=== PATIENT | female | born 1945 | race Hispanic/Latino ===

== ENCOUNTER 2020-09-26 23:46 | Emergency (ER) | payer MEDICARE ==
--- NOTE | 2020-09-27 | Emergency Department Report ---
ED Altered Mental Status HPI - General Chief Complaint: Altered Mental Status Stated Complaint: LOW POTASSIUM PUI?: No Time Seen by Provider: 09/26/20 23:55 Source: RN/MD, EMS, RN notes reviewed, old records reviewed Mode of arrival: Stretcher Limitations: Altered Mental Status, Physical Limitation - History of Present Illness Initial Comments: Patient is a 75-year-old female presents emergency room with complaints of altered mental status, weakness and low potassium. Patient is coming from a local long-term. Patient was sent here to be evaluated for mental status changes and low potassium. Patient's potassium was checked a few days ago and was found to be low and patient wanted to be managed in the ER for low pota ssium. EMS states that the daughter reports that her mental status has been changing. Patient brought in by EMS. Report received from EMS. No other complaints per EMS. Patient history of dementia. Patient states she is not in any pain. Patient is alert and oriented x3. Patient answering all questions appropriately. [facility]. Patient is allergic to Keflex and Plavix. Patient has history of hypokalemia, hypertension, COPD, muscle weakness, diabetes, gait abnormality, weakness, dementia, CVA, insomnia and hyperlipidemia. Patient has potassium orders on her med list. I discussed the case with the daughter. The daughter states that the patient answers most questions appropriately but the patient is having increased confusion over the past week. Daughter states the patient has not got out of bed since her stroke in June. Daughter states that the patient is having increased weakness. MD Complaint: altered mental status, confusion -: Sudden Consistency of Symptoms: waxing and waning - Related Data Allergies Allergy/AdvReac Type Severity Reaction Status Date / Time clopidogrel [From Plavix] Allergy Unknown Verified 09/27/20 00:07 ED Review of Systems ROS: Stated complaint: LOW POTASSIUM Other details as noted in HPI Comment: All other systems reviewed and negative ED Past Medical Hx - Past Medical History Previous Medical History?: Yes Hx Hypertension: Yes Hx Diabetes: Yes Hx Psychiatric Treatment: Yes (Depression) Hx COPD: Yes Hx Dementia: Yes Additional medical history: Hyperlipidemia, insomnia, COPD - Surgical History Past Surgical History?: No - Family History Family history: no significant - Social History Smoking Status: Unknown if ever smoked Substance Use Type: None ED Physical Exam - General Limitations: Altered Mental Status General appearance: alert, in no apparent distress - Head Head exam: Present: atraumatic, normocephalic - Eye Eye exam: Present: normal appearance, PERRL Pupils: Present: normal accommodation - ENT ENT exam: Present: mucous membranes moist - Neck Neck exam: Present: normal inspection - Respiratory Respiratory exam: Present: normal lung sounds bilaterally. Absent: respiratory distress - Cardiovascular Cardiovascular Exam: Present: regular rate, normal rhythm. Absent: systolic murmur, diastolic murmur, rubs, gallop - GI/Abdominal GI/Abdominal exam: Present: soft, normal bowel sounds. Absent: distended, tenderness, guarding - Extremities Exam Extremities exam: Present: normal inspection - Back Exam Back exam: Present: normal inspection - Neurological Exam Neurological exam: Present: alert, oriented X3 - Psychiatric Psychiatric exam: Present: normal affect, normal mood - Skin Skin exam: Present: warm, dry, intact, normal color. Absent: rash - Assessment Assessment Interval: Baseline - Level of Consciousness 1a. Level of Consciousness: alert/keenly responsive - LOC Questions 1b. LOC Questions: answers both correctly - LOC Command 1c. LOC Commands: performs tasks correctly - Best Gaze 2. Best Gaze: normal - Visual 3. Visual: no visual loss - Facial Palsy 4. Facial Palsy: normal symmetrical movement - Motor Arm 5a. Motor Arm Left: no drift 5b. Motor Arm Right: no drift - Motor Leg 6a. Motor Leg Left: no drift 6b. Motor Leg Right: no drift - Limb Ataxia 7. Limb Ataxia: absent - Sensory 8. Sensory: normal - Best Language 9. Best Language: no aphasia - Dysarthria 10. Dysarthria: normal - Extinction and Inattention 11. Extinction/Inattention: no abnormality - Scoring Total Score: 0 Stroke Severity: No Stroke Symptoms ED Course Vital Signs 09/27/20 00:04 Temperature 97.3 F L Pulse Rate 85 Respiratory 16 Rate Blood Pressure 144/56 [Right] O2 Sat by Pulse 98 Oximetry - Reevaluation(s) Reevaluation #1: I discussed all results and clinical findings with patient. I discussed plan of care with patient. Patient agrees with plan of care. Patient is stable for discharge. Patient will be discharged home. Patient given discharge instructions. Patient voiced understanding of discharge instructions. 09/27/20 02:18 - Lab Data Result diagrams: 09/27/20 00:25 06/12/21 00:25 Lab Results 09/27/20 09/27/20 09/27/20 Range/Units 00:25 00:25 00:25 WBC 7.6 (4.5-11.0) K/mm3 RBC 4.74 (3.65-5.03) M/mm3 Hgb 14.9 H (10.1-14.3) gm/dl Hct 41.7 (30.3-42.9) % MCV 88 (79-97) fl MCH 31 (28-32) pg MCHC 36 H (30-34) % RDW 13.9 (13.2-15.2) % Plt Count 146 (140-440) K/mm3 Lymph % (Auto) 24.5 (13.4-35.0) % [place] % (Auto) 11.2 H (0.0-7.3) % Eos % (Auto) 3.9 (0.0-4.3) % Baso % (Auto) 1.0 (0.0-1.8) % Lymph # (Auto) 1.9 (1.2-5.4) K/mm3 [place] # (Auto) 0.9 H (0.0-0.8) K/mm3 Eos # (Auto) 0.3 (0.0-0.4) K/mm3 Baso # (Auto) 0.1 (0.0-0.1) K/mm3 Seg Neutrophils % 59.4 (40.0-70.0) % Seg Neutrophils # 4.5 (1.8-7.7) K/mm3 PT 17.4 H (12.2-14.9) Sec. INR 1.36 H (0.87-1.13) APTT 30.9 (24.2-36.6) Sec. Sodium 140 (137-145) mmol/L Potassium 3.3 L (3.6-5.0) mmol/L Chloride 100.6 (98-107) mmol/L Carbon Dioxide 28 (22-30) mmol/L Anion Gap 15 mmol/L BUN 16 (7-17) mg/dL Creatinine 1.0 (0.6-1.2) mg/dL Estimated GFR 54 ml/min BUN/Creatinine Ratio 16 % Glucose 154 H (65-100) mg/dL Lactic Acid (0.7-2.0) mmol/L Calcium 12.6 H* (8.4-10.2) mg/dL Total Bilirubin 0.70 (0.1-1.2) mg/dL AST 17 (5-40) units/L ALT 15 (7-56) units/L Alkaline Phosphatase 72 (35-129) units/L Total Creatine Kinase 107 (30-135) units/L Troponin T 0.011 (0.00-0.029) ng/mL Total Protein 6.8 (6.3-8.2) g/dL Albumin 4.0 (3.9-5) g/dL Albumin/Globulin Ratio 1.4 % Urine Color (Yellow) Urine Turbidity (Clear) Urine pH (5.0-7.0) Ur Specific [place] (1.003-1.030) Urine Protein (Negative) mg/dL Urine Glucose (UA) (Negative) mg/dL Urine Ketones (Negative) mg/dL Urine Blood (Negative) Urine Nitrite (Negative) Urine Bilirubin (Negative) Urine Urobilinogen (<2.0) mg/dL Ur Leukocyte Esterase (Negative) Urine WBC (Auto) (0.0-6.0) /HPF Urine RBC (Auto) (0.0-6.0) /HPF 09/27/20 09/27/20 Range/Units 00:25 01:47 WBC (4.5-11.0) K/mm3 RBC (3.65-5.03) M/mm3 Hgb (10.1-14.3) gm/dl Hct (30.3-42.9) % MCV (79-97) fl MCH (28-32) pg MCHC (30-34) % RDW (13.2-15.2) % Plt Count (140-440) K/mm3 Lymph % (Auto) (13.4-35.0) % [place] % (Auto) (0.0-7.3) % Eos % (Auto) (0.0-4.3) % Baso % (Auto) (0.0-1.8) % Lymph # (Auto) (1.2-5.4) K/mm3 [place] # (Auto) (0.0-0.8) K/mm3 Eos # (Auto) (0.0-0.4) K/mm3 Baso # (Auto) (0.0-0.1) K/mm3 Seg Neutrophils % (40.0-70.0) % Seg Neutrophils # (1.8-7.7) K/mm3 PT (12.2-14.9) Sec. INR (0.87-1.13) APTT (24.2-36.6) Sec. Sodium (137-145) mmol/L Potassium (3.6-5.0) mmol/L Chloride (98-107) mmol/L Carbon Dioxide (22-30) mmol/L Anion Gap mmol/L BUN (7-17) mg/dL Creatinine (0.6-1.2) mg/dL Estimated GFR ml/min BUN/Creatinine Ratio % Glucose (65-100) mg/dL Lactic Acid 1.10 (0.7-2.0) mmol/L Calcium (8.4-10.2) mg/dL Total Bilirubin (0.1-1.2) mg/dL AST (5-40) units/L ALT (7-56) units/L Alkaline Phosphatase (35-129) units/L Total Creatine Kinase (30-135) units/L Troponin T (0.00-0.029) ng/mL Total Protein (6.3-8.2) g/dL Albumin (3.9-5) g/dL Albumin/Globulin Ratio % Urine Color Yellow (Yellow) Urine Turbidity Turbid (Clear) Urine pH 6.0 (5.0-7.0) Ur Specific [place] 1.015 (1.003-1.030) Urine Protein 30 mg/dl (Negative) mg/dL Urine Glucose (UA) Neg (Negative) mg/dL Urine Ketones Neg (Negative) mg/dL Urine Blood Mod (Negative) Urine Nitrite Neg (Negative) Urine Bilirubin Neg (Negative) Urine Urobilinogen < 2.0 (<2.0) mg/dL Ur Leukocyte Esterase Neg (Negative) Urine WBC (Auto) 1.0 (0.0-6.0) /HPF Urine RBC (Auto) 2.0 (0.0-6.0) /HPF - EKG Data -: EKG Interpreted by Me EKG shows normal: sinus rhythm, axis, intervals, QRS complexes, ST-T waves Rate: normal - Radiology Data Radiology results: report reviewed, image reviewed interpreted by me: Chest x-ray: No pneumonia, no pneumothorax, no foreign body, no osseous findings, no acute findings CHEST 1 VIEW, 09/27/2020 12:01 AM CLINICAL INFORMATION/INDICATION: Altered mental status COMPARISON: None. FINDINGS: SUPPORT DEVICES: None. HEART: The cardiac silhouette is normal in size. LUNGS/PLEURA: The lungs are clear of focal airspace disease or significant pleural effusion. ADDITIONAL FINDINGS: No additional acute findings. IMPRESSION: 1. No evidence of acute cardiopulmonary process. Examination: CT of the head without contrast Clinical information: Altered mental status Comparison: None Technical: Multiple axial CT images of the head were obtained without intravenous contrast. Sagittal and coronal reformats were obtained. All CTs at this facility utilize dose reduction techniques including automated exposure control, iterative reconstruction and weight based dosing when appropriate to reduce patient radiation dose to as low as reasonable achievable. Findings: INTRACRANIAL CONTENTS: There is no definitive CT evidence of acute intracranial hemorrhage or large territorial infarct. Encephalomalacia is noted within the left ganglia capsular region. There is moderate generalized atrophy and parenchymal volume loss. The ventricular system appears normal in size. SKULL: No acute bony abnormality is visualized. ORBITS: The bilateral orbits and globes appear normal PARANASAL SINUSES / MASTOID AIR CELLS: Paranasal sinuses and mastoid air cells appear clear. Impression: 1. Changes associated with chronic small vessel ischemic disease and atrophy as described above. - Medical Decision Making Patient is a 75-year-old female who presents with hyperkalemia, confusion and altered mental status and weakness. Patient brought in by EMS. Patient brought from a local personal [facility]long-term in [facility]. Patient had labs done which were essentially unremarkable except for elevated calcium and low potassium. Patient's potassium was 3.3. Patient's UA was negative. Patient had a head CT which was negative for acute event. Patient had a chest x -ray which was negative for acute findings and EKG which was negative for acute findings showed normal ST. I personally reviewed the EKG and the chest x-ray. Patient is stable for discharge. Patient will be discharged back to her long-term. Patient does not require a inpatient treatment. Patient not require admission. Patient is stable for discharge. Patient be discharged home. - Differential Diagnosis AMS, HIGH K, WEAKNESS. UTI, DEHYDRATION. Critical care attestation.: If time is entered above; I have spent that time in minutes in the direct care of this critically ill patient, excluding procedure time. ED Disposition Clinical Impression: Abnormal laboratory test result, Hypokalemia, Hypercalcemia Altered mental state Qualifiers: Altered mental status type: unspecified Qualified Code(s): R41.82 - Altered mental status, unspecified Disposition: DC-01 TO HOME OR SELFCARE Is pt being admited?: No Does the pt Need Aspirin: No Condition: Stable Instructions: Hypercalcemia, Hypokalemia, Potassium Content of Foods Additional Instructions: Patient to follow-up with primary care in 2 to 3 days. jail to continue potassium tablets that are on her med list. Patient to rest. Patient to increase water. Patient to take Tylenol or ibuprofen as needed for pain. . Patient to return to the ER if condition worsens, changes or new symptoms arise. Referrals: MINOR FERGUSON MD [Primary Care Provider] - 2-3 Days Time of Disposition: 02:22
[2020-09-27 00:20] VITALS: BP 144/56
--- NOTE | 2020-09-27 00:39 | XRay Report ---
CHEST 1 VIEW, 09/27/2020 12:01 AM CLINICAL INFORMATION/INDICATION: Altered mental status COMPARISON: None. FINDINGS: SUPPORT DEVICES: None. HEART: The cardiac silhouette is normal in size. LUNGS/PLEURA: The lungs are clear of focal airspace disease or significant pleural effusion. ADDITIONAL FINDINGS: No additional acute findings. IMPRESSION: 1. No evidence of acute cardiopulmonary process. Signer Name: Heydi Oliveira MD Signed: 09/27/2020 12:35 AM Workstation Name: [id number]
[2020-09-27 01:07] LABS: Basophils # (Auto) 0.1 K/mm3 (0.0-0.1); Eosinophils # (Auto) 0.3 K/mm3 (0.0-0.4); Eosinophils % (Auto) 3.9 % (0.0-4.3); Hematocrit 41.7 % (30.3-42.9); Hemoglobin 14.9 gm/dl (10.1-14.3); Lymphocytes # (Auto) 1.9 K/mm3 (1.2-5.4); Lymphocytes % (Auto) 24.5 % (13.4-35.0); Mean Corpuscular HGB Conc 36 % (30-34); Mean Corpuscular Volume 88 fl (79-97); Monocytes # (Auto) 0.9 K/mm3 (0.0-0.8); Monocytes % (Auto) 11.2 % (0.0-7.3); Platelet Count 146 K/mm3 (140-440); Red Blood Count 4.74 M/mm3 (3.65-5.03); Red Cell Distribution Width 13.9 % (13.2-15.2)
[2020-09-27 01:32] LABS: INR 1.36 (0.87-1.13); Partial Thromboplastin Time 30.9 Sec. (24.2-36.6)
--- NOTE | 2020-09-27 01:39 | Cat Scan Report ---
Examination: CT of the head without contrast Clinical information: Altered mental status Comparison: None Technical: Multiple axial CT images of the head were obtained without intravenous contrast. Sagittal and coronal reformats were obtained. All CTs at this facility utilize dose reduction techniques inc luding automated exposure control, iterative reconstruction and weight based dosing when appropriate to reduce patient radiation dose to as low as reasonable achievable. Findings: INTRACRANIAL CONTENTS: There is no definitive CT evidence of acute intracranial hemorrhage or large t erritorial infarct. Encephalomalacia is noted within the left ganglia capsular region. There is moder ate generalized atrophy and parenchymal volume loss. The ventricular system appears normal in size. SKULL: No acute bony abnormality is visualized. ORBITS: The bilateral orbits and globes appear normal PARANASAL SINUSES / MASTOID AIR CELLS: Paranasal sinuses and mastoid air cells appear clear. Impression: 1. Changes associated with chronic small vessel ischemic disease and atrophy as described above. Signer Name: Heydi Oliveira MD Signed: 09/27/2020 1:35 AM Workstation Name: [id number]
[2020-09-27 01:42] LABS: Calcium 12.6 mg/dL (8.4-10.2)
[2020-09-27 02:05] LABS: Bilirubin,Urine NEG (Negative); Blood,Urine MOD (Negative); Color,Urine Yellow (Yellow); Urobilinogen,Urine < 2.0 mg/dL (<2.0)
--- NOTE | 2020-10-02 12:43 | Electrocardiograph Report ---
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
== END 2020-09-27 07:23 | disposition home or self-care (01) ==
LOC: ED 23:46
DX: E83.52 Hypercalcemia (principal); E87.6 Hypokalemia; R41.82 Altered mental status, unspecified; R79.9 Abnormal finding of blood chemistry, unspecified; I10 Essential (primary) hypertension; E11.9 Type 2 diabetes mellitus without complications; F32.9 Major depressive disorder, single episode, unspecified; J44.9 Chronic obstructive pulmonary disease, unspecified; F03.90 Unspecified dementia, unspecified severity, without behavioral disturbance, psychotic disturbance, mood disturbance, and anxiety; Z88.8 Allergy status to other drugs, medicaments and biological substances
CPT/HCPCS: 36415; 70450; 71045; 80053; 81001; 82140; 82550; 84484; 85025; 85610; 85730; 93005

== ENCOUNTER 2020-10-23 09:49 | Inpatient (IN) | payer MEDICARE ==
--- NOTE | 2020-10-23 11:22 | XRay Report ---
. XR chest 1V ap INDICATION / CLINICAL INFORMATION: Altered mental status. COMPARISON: 10/19/2020 FINDINGS: SUPPORT DEVICES: None. HEART /PULMONARY VASCULATURE: No significant abnormality. LUNGS / PLEURA: No significant pulmonary or pleural abnormality. No pneumothorax. ADDITIONAL FINDINGS: No significant additional findings. IMPRESSION: 1. No acute findings. Signer Name: Herbert Torrez MD Signed: 10/23/2020 11:17 AM Workstation Name: [id number]
[2020-10-23 11:26] LABS: Bacteria,Urine 1+ /HPF (Negative); Bilirubin,Urine NEG (Negative); Blood,Urine MOD (Negative); Color,Urine Yellow (Yellow); Urobilinogen,Urine < 2.0 mg/dL (<2.0)
--- NOTE | 2020-10-23 11:42 | Emergency Department Report ---
HPI - General Chief Complaint: Neuro Symptoms/Deficit Time Seen by Provider: 10/23/20 10:26 - HPI HPI: This is a 75-year-old female presents to the emergency department, via EMS from her [facility], with a complaint of the patient being unconscious for about 2 to 3 minutes. There is no report as to where this episode of unresponsiveness took place, or whether she was found in a bed or on the floor. At the time of my examination the patient is awake and cooperative. I saw this patient here 4 days ago after she had an unwitnessed fall at the same assisted living facility. I spoke to the patient's daughter during her last ER visit and the patient has a history of recent CVA, dementia, CKD. The patient is oriented, AAO x3, but does display some confusion and some rambling and/or tangential thoughts. ED Past Medical Hx - Past Medical History Hx Hypertension: Yes Hx Diabetes: Yes Hx Psychiatric Treatment: Yes (Depression) Hx COPD: Yes Hx Dementia: Yes Additional medical history: Hyperlipidemia, insomnia, COPD - Social History Smoking Status: Unknown if ever smoked ED Review of Systems ROS: Stated complaint: ALTERED MENTAL STATUS Other details as noted in HPI Comment: All other systems reviewed and negative Constitutional: denies: chills, fever Eyes: denies: eye pain, vision change ENT: denies: ear pain, throat pain Respiratory: denies: cough, shortness of breath Cardiovascular: denies: chest pain, palpitations Gastrointestinal: denies: abdominal pain, vomiting Genitourinary: denies: dysuria, discharge Musculoskeletal: denies: back pain, arthralgia Skin: other (There is some skin breakdown to the perineum and buttocks). denies: pruritus Neurological: denies: headache, numbness Physical Exam - Physical Exam Physical Exam: GENERAL: The patient is well-developed well-nourished. HENT: Normocephalic. Atraumatic. Patient has moist mucous membranes. EYES: Extraocular motions are intact. NECK: Supple. Trachea is midline. CHEST/LUNGS: Clear to auscultation. There is no respiratory distress noted. HEART/CARDIOVASCULAR: Regular. There is no tachycardia. There is no murmur. ABDOMEN: Abdomen is soft, nontender. Patient has normal bowel sounds. There is no abdominal distention. SKIN: Skin is warm and dry. There is some skin breakdown to the perineum and buttocks. NEURO: The patient is awake, alert, but confused. The patient is cooperative. Cranial nerves II through XII grossly intact. MUSCULOSKELETAL: There is no tenderness or deformity. There is no limitation range of motion. ED Course - Consultations Consultation #1: 10/23/20 13:14 I spoke the [place], for the cardiology service on-call, [facility]. We discussed the patient's presentation, past medical history, EKG, and the laboratory findings of chronic kidney disease and an elevated troponin level. There have to see the patient as a consult. At this time they do not require IV heparin, but do recommend subcutaneous heparin. ED Medical Decision Making - Lab Data Result diagrams: 10/23/20 11:38 10/23/20 11:38 Lab Results 10/23/20 10/23/20 10/23/20 Range/Units 11:38 11:38 11:38 WBC 12.4 H (4.5-11.0) K/mm3 RBC 4.25 (3.65-5.03) M/mm3 Hgb 13.2 (10.1-14.3) gm/dl Hct 37.8 (30.3-42.9) % MCV 89 (79-97) fl MCH 31 (28-32) pg MCHC 35 H (30-34) % RDW 13.9 (13.2-15.2) % Plt Count 159 (140-440) K/mm3 Lymph % (Auto) 7.4 L (13.4-35.0) % [place] % (Auto) 5.0 (0.0-7.3) % Eos % (Auto) 0.2 (0.0-4.3) % Baso % (Auto) 0.2 (0.0-1.8) % Lymph # (Auto) 0.9 L (1.2-5.4) K/mm3 [place] # (Auto) 0.6 (0.0-0.8) K/mm3 Eos # (Auto) 0.0 (0.0-0.4) K/mm3 Baso # (Auto) 0.0 (0.0-0.1) K/mm3 Seg Neutrophils % 87.2 H (40.0-70.0) % Seg Neutrophils # 10.8 H (1.8-7.7) K/mm3 Sodium 134 L (137-145) mmol/L Potassium 3.7 (3.6-5.0) mmol/L Chloride 94.1 L (98-107) mmol/L Carbon Dioxide 24 (22-30) mmol/L Anion Gap 20 mmol/L BUN 50 H (7-17) mg/dL Creatinine 2.6 H (0.6-1.2) mg/dL Estimated GFR 18 ml/min BUN/Creatinine Ratio 19 % Glucose 125 H (65-100) mg/dL Calcium 11.5 H (8.4-10.2) mg/dL Total Bilirubin 0.70 (0.1-1.2) mg/dL AST 19 (5-40) units/L ALT 17 (7-56) units/L Alkaline Phosphatase 92 (35-129) units/L Ammonia 27.0 (25-60) umol/L Total Creatine Kinase (30-135) units/L Troponin T (0.00-0.029) ng/mL Total Protein 7.1 (6.3-8.2) g/dL Albumin 3.7 L (3.9-5) g/dL Albumin/Globulin Ratio 1.1 % Triglycerides (2-149) mg/dL Cholesterol (50-199) mg/dL LDL Cholesterol Direct (50-130) mg/dL HDL Cholesterol (40-59) mg/dL Cholesterol/HDL Ratio % TSH (0.270-4.200) mlU/mL 10/23/20 10/23/20 Range/Units 11:38 11:38 WBC (4.5-11.0) K/mm3 RBC (3.65-5.03) M/mm3 Hgb (10.1-14.3) gm/dl Hct (30.3-42.9) % MCV (79-97) fl MCH (28-32) pg MCHC (30-34) % RDW (13.2-15.2) % Plt Count (140-440) K/mm3 Lymph % (Auto) (13.4-35.0) % [place] % (Auto) (0.0-7.3) % Eos % (Auto) (0.0-4.3) % Baso % (Auto) (0.0-1.8) % Lymph # (Auto) (1.2-5.4) K/mm3 [place] # (Auto) (0.0-0.8) K/mm3 Eos # (Auto) (0.0-0.4) K/mm3 Baso # (Auto) (0.0-0.1) K/mm3 Seg Neutrophils % (40.0-70.0) % Seg Neutrophils # (1.8-7.7) K/mm3 Sodium (137-145) mmol/L Potassium (3.6-5.0) mmol/L Chloride (98-107) mmol/L Carbon Dioxide (22-30) mmol/L Anion Gap mmol/L BUN (7-17) mg/dL Creatinine (0.6-1.2) mg/dL Estimated GFR ml/min BUN/Creatinine Ratio % Glucose (65-100) mg/dL Calcium (8.4-10.2) mg/dL Total Bilirubin (0.1-1.2) mg/dL AST (5-40) units/L ALT (7-56) units/L Alkaline Phosphatase (35-129) units/L Ammonia (25-60) umol/L Total Creatine Kinase 166 H (30-135) units/L Troponin T 0.151 H* (0.00-0.029) ng/mL Total Protein (6.3-8.2) g/dL Albumin (3.9-5) g/dL Albumin/Globulin Ratio % Triglycerides 155 H (2-149) mg/dL Cholesterol 121 (50-199) mg/dL LDL Cholesterol Direct 45 L (50-130) mg/dL HDL Cholesterol 46 (40-59) mg/dL Cholesterol/HDL Ratio 2.63 % TSH 3.540 (0.270-4.200) mlU/mL - EKG Data -: EKG Interpreted by Tx EKG shows normal: sinus rhythm, axis, intervals, QRS complexes (Q waves to the inferior and anterior leads), ST-T waves Rate: normal - EKG Data When compared to previous EKG there are: no significant change (other than previous EKG had ventricular trigeminy) Interpretation: unchanged when compared t (09/27/20) - Radiology Data Radiology results: report reviewed CT head/brain wo con INDICATION: Altered mental status. TECHNIQUE: All CT scans at this location are performed using CT dose reduction for ALARA by means of automated exposure control. COMPARISON: Head CT on 09/27/2020 FINDINGS: There is no evidence of hemorrhage, hydrocephalus, brain edema, or mass effect/mass lesion. There is stable moderate global atrophy. There is stable chronic lacunar infarct in the left gangliocapsular region. The included paranasal sinuses and mastoid air cells are clear. The orbits appear unremarkable. IMPRESSION: 1. No acute findings or adverse change from the prior exam. - Medical Decision Making This patient presented to the emergency department from her [facility] after there was some type of unresponsive episode for about 2 to 3 minutes. Since being in the emergency department the patient is awake and conversive. She is able to answer orientation questions, but does display some confusion. The patient's mentation appears consistent with her ER visit from 4 days ago when I also saw her. CT scan head without contrast does not show any hemorrhage, large vessel occlusion, or any other acute process. Chest x-ray does not show any pneumonia, pleural effusions, pneumothorax, widened mediastinum, or any other acute process. EKG does not have any morphology consistent with ST elevation myocardial infarction. Patient's labs have been mostly unremarkable except for renal insufficiency consistent with her chronic kidney disease, and an elevated troponin of about 0.15. Patient did not complain of any chest pain, but she does have some level of dementia. It should be noted that the troponin is dramatically elevated from when it was checked about 1 month ago. Cardiology has been contacted and consulted, but they did not feel that a heparin bolus and drip was necessary at this time. The patient will be admitted to the hospital and has been accepted by Dr. Mann. Critical Care Time: No Critical care attestation.: If time is entered above; I have spent that time in minutes in the direct care o f this critically ill patient, excluding procedure time. ED Disposition Clinical Impression: Unresponsive episode, Elevated troponin, Metabolic encephalopathy Urinary tract infection Qualifiers: Encounter type: initial encounter Disposition: 09 OP ADMIT IP TO THIS HOSP Is pt being admited?: Yes Condition: Serious
--- NOTE | 2020-10-23 11:42 | Cat Scan Report ---
CT head/brain wo con INDICATION: Altered mental status. TECHNIQUE: All CT scans at this location are performed using CT dose reduction for ALARA by means of automated e xposure control. COMPARISON: Head CT on 09/27/2020 FINDINGS: There is no evidence of hemorrhage, hydrocephalus, brain edema, or mass effect/mass lesion. There is stable moderate global atrophy. There is stable chronic lacunar infarct in the left gangliocapsular r egion. The included paranasal sinuses and mastoid air cells are clear. The orbits appear unremarkable. IMPRESSION: 1. No acute findings or adverse change from the prior exam. Signer Name: Kain Canchola MD Signed: 10/23/2020 11:37 AM Workstation Name: [id number]
[2020-10-23 12:06] LABS: Basophils % (Auto) 0.2 % (0.0-1.8); Eosinophils % (Auto) 0.2 % (0.0-4.3); Hematocrit 37.8 % (30.3-42.9); Hemoglobin 13.2 gm/dl (10.1-14.3); Lymphocytes # (Auto) 0.9 K/mm3 (1.2-5.4); Lymphocytes % (Auto) 7.4 % (13.4-35.0); Mean Corpuscular HGB Conc 35 % (30-34); Mean Corpuscular Volume 89 fl (79-97); Monocytes # (Auto) 0.6 K/mm3 (0.0-0.8); Platelet Count 159 K/mm3 (140-440); Red Blood Count 4.25 M/mm3 (3.65-5.03); Red Cell Distribution Width 13.9 % (13.2-15.2)
[2020-10-23 12:27] LABS: Albumin 3.7 g/dL (3.9-5); Calcium 11.5 mg/dL (8.4-10.2)
[2020-10-23 13:13] LABS: Chol/HDL Ratio 2.63 %
[2020-10-23] MEDS ORDERED: ASPIRIN 81 MG TAB CHEW PO ONE (13:13)
--- NOTE | 2020-10-23 13:21 | History and Physical Report ---
History of Present Illness Chief complaint: She became unresponsive History of present illness: 75 YO Female Assisted Living Facility Resident at [facility] Living [facility] with DM, HTN, COPD, Vascular Dementia, HLD, Depression presents to ED for evaluation. Patient has diminished cognition and unable to provide detailed history. Patient history taken from EMS staff, ED staff, as well as assisted living facility staff. As per staff the patient experienced unresponsiveness for several minutes today. EMS was notified and upon arrival the patient was found to be in distress and subsequently transported to [facility] for further care and evaluation of the aforementioned symptoms. The patient was seen and evaluated in the emergency department. All lab and imaging studies reviewed. The patient was found to have leukocytosis suspected secondary to urinary tract infection, acute kidney injury, as well as encephalopathy. Patient placed in observation status and admitted to medical floor. Patient treated with empiric dose of IV antibiotic therapy, as well as IV fluid resuscitation therapy and supportive care. No further history is obtainable. Patient has a palpable positive gag reflex and able to protect her airway without difficulty the time my evaluation. No prior admission for review. All medication listed at time of admission has been reconciled. Advanced care planning conducted in ED. Past History Past Medical History: COPD, diabetes, hypertension Past Surgical History: No surgical history, Other (Reviewed) Social history: single. denies: smoking, alcohol abuse, prescription drug abuse Family history: diabetes, hypertension Medications and Allergies Allergies Allergy/AdvReac Type Severity Reaction Status Date / Time clopidogrel [From Plavix] Allergy Unknown Verified 09/27/20 00:07 Review of Systems ROS unobtainable: due to mental status Exam - Constitutional General appearance: Present: mild distress - EENT ENT: hearing decreased - Neck Neck: Present: supple, normal ROM - Respiratory Respiratory effort: normal Respiratory: bilateral: CTA - Cardiovascular Heart Sounds: Present: S1 & S2. Absent: rub, click - Extremities Extremities: pulses symmetrical, No edema Peripheral Pulses: within normal limits - Abdominal General gastrointestinal: Present: soft, non-tender, non-distended, normal bowel sounds Female genitourinary: Present: normal - Integumentary Integumentary: Present: clear, dry - Musculoskeletal Musculoskeletal: generalized weakness - Psychiatric Psychiatric: no appropriate mood/affect, no intact judgment & insight, no memory intact - Neurologic Neurologic: CNII-XII intact, no focal deficits, moves all extremities, no gait normal HEART Score - HEART Score Troponin: Troponin T 0.151 ng/mL (0.00-0.029) H* 10/23/20 11:38 Results - Labs CBC & Chem 7: 10/23/20 11:38 10/23/20 11:38 Labs: Abnormal lab results 10/23/20 10/23/20 10/23/20 Range/Units 11:38 11:38 11:38 WBC 12.4 H (4.5-11.0) K/mm3 MCHC 35 H (30-34) % Lymph % (Auto) 7.4 L (13.4-35.0) % Lymph # (Auto) 0.9 L (1.2-5.4) K/mm3 Seg Neutrophils % 87.2 H (40.0-70.0) % Seg Neutrophils # 10.8 H (1.8-7.7) K/mm3 Sodium 134 L (137-145) mmol/L Chloride 94.1 L (98-107) mmol/L BUN 50 H (7-17) mg/dL Creatinine 2.6 H (0.6-1.2) mg/dL Glucose 125 H (65-100) mg/dL Calcium 11.5 H (8.4-10.2) mg/dL Total Creatine Kinase 166 H (30-135) units/L Troponin T 0.151 H* (0.00-0.029) ng/mL Albumin 3.7 L (3.9-5) g/dL Triglycerides 155 H (2-149) mg/dL LDL Cholesterol Direct 45 L (50-130) mg/dL Assessment and Plan - Patient Problems (1) Metabolic encephalopathy Current Visit: Yes Status: Acute Plan to address problem: CTA, neuro check, seizure precaution, aspiration precautions, fall precautions, IV fluid resuscitation therapy, echocardiogram, cardiology team consulted in ED. (2) GLENN (acute kidney injury) Current Visit: Yes Status: Acute Plan to address problem: Monitor urine output every shift, IV fluid resuscitation therapy, BMP, repeat BMP in a.m. to monitor serum creatinine as well as GFR. (3) Volume depletion Current Visit: Yes Status: Acute Plan to address problem: IV fluid resuscitation therapy, supportive care. (4) Urinary tract infection Current Visit: Yes Status: Acute Qualifiers: Encounter type: initial encounter Plan to address problem: Urinalysis, empiric IV antibiotic therapy, supportive care. (5) Elevated troponin Current Visit: Yes Status: Acute Plan to address problem: Serial cardiac enzymes, EKG, remote telemetry monitoring, cardiology team consulted, echocardiogram ordered and is pending at time of admission. (6) DVT prophylaxis Current Visit: Yes Status: Acute Plan to address problem: SCD to bilateral lower extremities while in bed (7) Advance care planning Current Visit: Yes Status: Acute Plan to address problem: disease education conducted, care plan discussed, diagnosis discussed, prognosis discussed, patient is full code. Patient family acknowledges understanding agree with care plan, +30 minutes
[2020-10-23] MEDS ORDERED: ONDANSETRON 4 MG/2 ML INJ IV PRN (14:00)
[2020-10-23] MEDS ORDERED: ACETAMINOPHEN 325 MG TAB PO PRN (14:00)
[2020-10-23] MEDS ORDERED: cefTRIAXone/NS 2 GM/100 ML 2 GM/100 ML BAG IV ONE (14:30)
[2020-10-23] MEDS ORDERED: ALBUTEROL 2.5 MG/3 ML NEBU IH PRN (16:00)
--- NOTE | 2020-10-24 09:46 | Progress Note ---
Assessment and Plan Assessment and plan: 75 YO Female Assisted Living Facility Resident at [facility] Living [facility] with DM, HTN, COPD, Vascular Dementia, HLD, Depression presents to ED for evaluation. Patient has diminished cognition and unable to provide detailed history. Patient history taken from EMS staff, ED staff, as well as assisted living facility staff. As per staff the patient experienced unresponsiveness for several minutes on the day of admission. EMS was notified and upon arrival the patient was found to be in distress and subsequently transported to [facility] for further care and evaluation of the aforementioned symptoms. The patient was seen and evaluated in the emergency department. All lab and imaging studies reviewed. The patient was found to have leukocytosis, SIRS, acute kidney injury and toxic metabolic encephalopathy. The patient was also noted to have elevated troponin. Metabolic encephalopathy. Etiology likely secondary to NSTEMI and renal insufficiency. Acute kidney injury secondary to vasomotor nephropathy +/-ATN. SIRS. Patient with leukocytosis, tachycardia but no obvious signs of infection. Urinalysis negative. NSTEMI. Elevated troponin COPD. Stable. History of hypertension. History of diabetes mellitus type 2 10/24/2020. Follow-up echocardiogram and cardiology consultation. Continue to trend cardiac isoenzymes. Continue IV fluid hydration and follow-up BMP. Check renal ultrasound and consider nephrology consultation. We will hold antihypertensive medications for now. Patient actually normotensive. Also, patient's blood sugar at 125 we will hold on Lantus for now be introduced as needed. Patient with underlying dementia and may be at baseline with regards to her mental status. Continue antibiotics empirically until blood cultures resulted. Urinalysis is negative History Interval history: No new issues overnight. Patient is confused and alert and oriented only to name. Hospitalist Physical - Constitutional Vitals: Temp Pulse Resp BP Pulse Ox 97.2 F L 74 16 104/82 94 10/24/20 07:40 10/24/20 07:40 10/24/20 07:40 10/24/20 07:40 10/24/20 07:40 General appearance: Present: no acute distress - EENT Eyes: Present: PERRL, EOM intact ENT: hearing intact, clear oral mucosa, dentition normal - Neck Neck: Present: supple, normal ROM - Respiratory Respiratory effort: normal Respiratory: bilateral: CTA - Cardiovascular Rhythm: regular Heart Sounds: Present: S1 & S2. Absent: gallop, rub - Extremities Extremities: no ischemia, No edema, Full ROM - Abdominal General gastrointestinal: soft, non-tender, non-distended, normal bowel sounds - Integumentary Integumentary: Present: clear, warm, dry - Neurologic Neurologic: CNII-XII intact, moves all extremities HEART Score - HEART Score Troponin: Troponin T 0.135 ng/mL (0.00-0.029) H* 10/23/20 18:46 Results - Labs CBC & Chem 7: 10/23/20 11:38 10/23/20 11:38 Labs: Laboratory Last Values WBC 12.4 K/mm3 (4.5-11.0) H 10/23/20 11:38 RBC 4.25 M/mm3 (3.65-5.03) 10/23/20 11:38 Hgb 13.2 gm/dl (10.1-14.3) 10/23/20 11:38 Hct 37.8 % (30.3-42.9) 10/23/20 11:38 MCV 89 fl (79-97) 10/23/20 11:38 MCH 31 pg (28-32) 10/23/20 11:38 MCHC 35 % (30-34) H 10/23/20 11:38 RDW 13.9 % (13.2-15.2) 10/23/20 11:38 Plt Count 159 K/mm3 (140-440) 10/23/20 11:38 Lymph % (Auto) 7.4 % (13.4-35.0) L 10/23/20 11:38 [place] % (Auto) 5.0 % (0.0-7.3) 10/23/20 11:38 Eos % (Auto) 0.2 % (0.0-4.3) 10/23/20 11:38 Baso % (Auto) 0.2 % (0.0-1.8) 10/23/20 11:38 Lymph # (Auto) 0.9 K/mm3 (1.2-5.4) L 10/23/20 11:38 [place] # (Auto) 0.6 K/mm3 (0.0-0.8) 10/23/20 11:38 Eos # (Auto) 0.0 K/mm3 (0.0-0.4) 10/23/20 11:38 Baso # (Auto) 0.0 K/mm3 (0.0-0.1) 10/23/20 11:38 Seg Neutrophils % 87.2 % (40.0-70.0) H 10/23/20 11:38 Seg Neutrophils # 10.8 K/mm3 (1.8-7.7) H 10/23/20 11:38 Sodium 134 mmol/L (137-145) L 10/23/20 11:38 Potassium 3.7 mmol/L (3.6-5.0) 10/23/20 11:38 Chloride 94.1 mmol/L (98-107) L 10/23/20 11:38 Carbon Dioxide 24 mmol/L (22-30) 10/23/20 11:38 Anion Gap 20 mmol/L 10/23/20 11:38 BUN 50 mg/dL (7-17) H 10/23/20 11:38 Creatinine 2.6 mg/dL (0.6-1.2) H 10/23/20 11:38 Estimated GFR 18 ml/min 10/23/20 11:38 BUN/Creatinine Ratio 19 % 10/23/20 11:38 Glucose 125 mg/dL (65-100) H 10/23/20 11:38 Calcium 11.5 mg/dL (8.4-10.2) H 10/23/20 11:38 Total Bilirubin 0.70 mg/dL (0.1-1.2) 10/23/20 11:38 AST 19 units/L (5-40) 10/23/20 11:38 ALT 17 units/L (7-56) 10/23/20 11:38 Alkaline Phosphatase 92 units/L (35-129) 10/23/20 11:38 Ammonia 27.0 umol/L (25-60) 10/23/20 11:38 Total Creatine Kinase 166 units/L (30-135) H 10/23/20 11:38 Troponin T 0.135 ng/mL (0.00-0.029) H* 10/23/20 18:46 Total Protein 7.1 g/dL (6.3-8.2) 10/23/20 11:38 Albumin 3.7 g/dL (3.9-5) L 10/23/20 11:38 Albumin/Globulin Ratio 1.1 % 10/23/20 11:38 Triglycerides 155 mg/dL (2-149) H 10/23/20 11:38 Cholesterol 121 mg/dL (50-199) 10/23/20 11:38 LDL Cholesterol Direct 45 mg/dL (50-130) L 10/23/20 11:38 HDL Cholesterol 46 mg/dL (40-59) 10/23/20 11:38 Cholesterol/HDL Ratio 2.63 % 10/23/20 11:38 TSH 3.540 mlU/mL (0.270-4.200) 10/23/20 11:38 Urine Color Yellow (Yellow) 10/23/20 Unknown Urine Turbidity Turbid (Clear) 10/23/20 Unknown Urine pH 5.0 (5.0-7.0) 10/23/20 Unknown Ur Specific [place] 1.013 (1.003-1.030) 10/23/20 Unknown Urine Protein 100 mg/dl mg/dL (Negative) 10/23/20 Unknown Urine Glucose (UA) Neg mg/dL (Negative) 10/23/20 Unknown Urine Ketones Neg mg/dL (Negative) 10/23/20 Unknown Urine Blood Mod (Negative) 10/23/20 Unknown Urine Nitrite Neg (Negative) 10/23/20 Unknown Urine Bilirubin Neg (Negative) 10/23/20 Unknown Urine Urobilinogen < 2.0 mg/dL (<2.0) 10/23/20 Unknown Ur Leukocyte Esterase Mod (Negative) 10/23/20 Unknown Urine WBC (Auto) 5.0 /HPF (0.0-6.0) 10/23/20 Unknown Urine RBC (Auto) 1.0 /HPF (0.0-6.0) 10/23/20 Unknown Urine Bacteria (Auto) 1+ /HPF (Negative) 10/23/20 Unknown Active Medications - Current Medications Current Medications: Generic Name Dose Route Start Last Admin Trade Name Freq PRN Reason Stop Dose Admin Acetaminophen 650 mg 10/23/20 14:00 Acetaminophen 325 Mg Tab PO Q4H PRN Pain MILD(1-3)/Fever >100.5/JEAN BAPTISTE Albuterol 2.5 mg 10/23/20 16:00 Albuterol 2.5 Mg/3 Ml Nebu IH Q4HRT PRN Shortness Of Breath Hydromorphone HCl 0.5 mg 10/23/20 14:00 Hydromorphone 1 Mg/1 Ml Inj IV Q8H PRN Pain , Severe (7-10) Ondansetron HCl 4 mg 10/23/20 14:00 Ondansetron 4 Mg/2 Ml Inj IV Q8H PRN Nausea And Vomiting Oxycodone/Acetaminophen 1 tab 10/23/20 14:00 Oxycodone /Acetaminophen 5-325mg Tab PO Q6H PRN Pain, Moderate (4-6) Sodium Chloride 10 ml 10/23/20 22:00 10/24/20 09:31 Sodium Chloride 0.9% 10 Ml Flush Syringe IV 10 ml BID SHEBA Administration Sodium Chloride 10 ml 10/23/20 14:00 Sodium Chloride 0.9% 10 Ml Flush Syringe IV PRN PRN LINE FLUSH
[2020-10-24] MEDS ORDERED: LEVOMEFOLAT CA PO SCH (10:00)
[2020-10-24] MEDS ORDERED: NON-FORMULARY EACH (Apixaban 5 MG Tablet) PO SCH (10:00)
[2020-10-24] MEDS ORDERED: MECOBAL PO SCH (10:00)
[2020-10-24] MEDS ORDERED: B6 PHOS PO SCH (10:00)
--- NOTE | 2020-10-24 10:34 | Electrocardiograph Report ---
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
--- NOTE | 2020-10-24 11:28 | Consultation ---
History of Present Illness Consult date: 10/24/20 Consult reason: elevated troponin History of present illness: This is a 75-year old F brought to this hospital with altered mental status. CT scan on the head reports no acute abnormalities. Chest x-ray is negative. Initial lab in the emergency department shows acute renal failure, creatinine of 2.6. There was also mild elevation of troponin measurements thus this cardiac consultation. There were no report of chest pain, unusual shortness of breath, or palpitations. An ECG is sinus rhythm with old inferior infarct. ECG is unchanged in comparison to an ECG done 1 month ago. History is unobtainable due to underlying dementia. Review of records shows reports she takes Eliquis for prior CVA. She also has a history of hypertension, diabetes, and hyperlipidemia. Past History Past Medical History: COPD, diabetes, hypertension Past Surgical History: No surgical history Social history: single. denies: smoking, alcohol abuse, prescription drug abuse Family history: diabetes, hypertension Medications and Allergies Allergies Allergy/AdvReac Type Severity Reaction Status Date / Time cephalexin [From Keflex] Allergy Unknown Verified 10/24/20 06:33 clopidogrel [From Plavix] Allergy Unknown Verified 09/27/20 00:07 Home Medications Medication Instructions Recorded Confirmed Last Taken Type Amlodipine Besylate [Norvasc] 10 mg PO QDAY 10/23/20 10/23/20 Unknown History Apixaban [Eliquis] 5 mg PO QDAY 10/23/20 10/23/20 Unknown History AtorvaSTATin [Lipitor] 40 mg PO QHS 10/23/20 10/23/20 Unknown History Diclofenac Sodium 75 mg PO BID 10/23/20 10/23/20 Unknown History Escitalopram [Lexapro] 10 mg PO QDAY 10/23/20 10/23/20 Unknown History HYDROcodone/ACETAMINOPHEN 1 each PO Q6HR PRN 10/23/20 10/23/20 Unknown History [Hydrocodone-Acetamin 7.5-300] Insulin Glargine,Hum.rec.anlog 10 unit SQ QHS 10/23/20 10/23/20 Unknown History [Lantus Solostar] Loperamide [Imodium] 2 mg PO Q2HR 10/23/20 10/23/20 Unknown History Losartan Potassium 100 mg PO QDAY 10/23/20 10/23/20 Unknown History Mecobal/Levomefolat Ca/B6 Phos 1 tab PO BID 10/23/20 10/23/20 Unknown History [Foltanx Tablet] Vilazodone HCl [Viibryd] 1 tab PO DAILY 10/23/20 10/23/20 Unknown History Zaleplon 5 mg PO QDAY 10/23/20 10/23/20 Unknown History amantadine [Symmetrel] 100 mg PO DAILY 10/23/20 10/23/20 Unknown History diazePAM [Diazepam] 10 mg PO QHS 10/23/20 10/23/20 Unknown History donepeziL [Aricept] 10 mg PO QDAY 10/23/20 10/23/20 Unknown History hydroCHLOROthiazide 12.5 mg PO QDAY 10/23/20 10/23/20 Unknown History [Hydrochlorothiazide] tiZANidine [Zanaflex 4mg TAB] 4 mg PO QDAY PRN 10/23/20 10/23/20 Unknown History traMADoL [Ultram] 50 mg PO Q6HR PRN 10/23/20 10/23/20 Unknown History Active Meds: Active Medications Acetaminophen (Acetaminophen 325 Mg Tab) 650 mg PO Q4H PRN PRN Reason: Pain MILD(1-3)/Fever >100.5/JEAN BAPTISTE Albuterol (Albuterol 2.5 Mg/3 Ml Nebu) 2.5 mg IH Q4HRT PRN PRN Reason: Shortness Of Breath Amantadine HCl (Amantadine 100 Mg Cap) 100 mg PO DAILY SHEBA Atorvastatin Calcium (Atorvastatin 40 Mg Tab) 40 mg PO QHS SHEBA Donepezil HCl (Donepezil 10 Mg Tab) 10 mg PO QDAY SHEBA Escitalopram Oxalate (Escitalopram 10 Mg Tab) 10 mg PO DAILY SHEBA Hydromorphone HCl (Hydromorphone 1 Mg/1 Ml Inj) 0.5 mg IV Q8H PRN PRN Reason: Pain , Severe (7-10) Sodium Chloride (Nacl 0.9% 1000 Ml) 1,000 mls @ 75 mls/hr IV DIRECT SHEBA Miscellaneous Medication (Apixaban) 5 mg PO QDAY SHEBA Miscellaneous Medication (Mecobal/Levomefolat Ca/B6 Phos [Foltanx Tablet]) 1 tab PO BID SHEBA Ondansetron HCl (Ondansetron 4 Mg/2 Ml Inj) 4 mg IV Q8H PRN PRN Reason: Nausea And Vomiting Oxycodone/Acetaminophen (Oxycodone /Acetaminophen 5-325mg Tab) 1 tab PO Q6H PRN PRN Reason: Pain, Moderate (4-6) Sodium Chloride (Sodium Chloride 0.9% 10 Ml Flush Syringe) 10 ml IV BID SHEBA Last Admin: 10/24/20 09:31 Dose: 10 ml Documented by: Sodium Chloride (Sodium Chloride 0.9% 10 Ml Flush Syringe) 10 ml IV PRN PRN PRN Reason: LINE FLUSH Review of Systems ROS unobtainable: due to mental status Physical Examination Vital Signs Pulse Resp Pulse Ox 81 12 97 10/23/20 10:06 10/23/20 10:06 10/23/20 10:06 General appearance: no acute distress HEENT: Positive: Normocephaly Neck: Positive: trachea midline Cardiac: Positive: Reg Rate and Rhythm Lungs: Positive: Decreased Breath Sounds Extremities: Absent: edema Results 10/23/20 11:38 10/23/20 11:38 Cardiac Enzymes 10/23/20 Range/Units 11:38 AST 19 (5-40) units/L Lipids 10/23/20 Range/Units 11:38 Triglycerides 155 H (2-149) mg/dL Cholesterol 121 (50-199) mg/dL HDL Cholesterol 46 (40-59) mg/dL Cholesterol/HDL Ratio 2.63 % CBC 10/23/20 Range/Units 11:38 WBC 12.4 H (4.5-11.0) K/mm3 RBC 4.25 (3.65-5.03) M/mm3 Hgb 13.2 (10.1-14.3) gm/dl Hct 37.8 (30.3-42.9) % Plt Count 159 (140-440) K/mm3 Lymph # (Auto) 0.9 L (1.2-5.4) K/mm3 [place] # (Auto) 0.6 (0.0-0.8) K/mm3 Eos # (Auto) 0.0 (0.0-0.4) K/mm3 Baso # (Auto) 0.0 (0.0-0.1) K/mm3 Comprehensive Metabolic Panel 10/23/20 Range/Units 11:38 Sodium 134 L (137-145) mmol/L Potassium 3.7 (3.6-5.0) mmol/L Chloride 94.1 L (98-107) mmol/L Carbon Dioxide 24 (22-30) mmol/L BUN 50 H (7-17) mg/dL Creatinine 2.6 H (0.6-1.2) mg/dL Glucose 125 H (65-100) mg/dL Calcium 11.5 H (8.4-10.2) mg/dL AST 19 (5-40) units/L ALT 17 (7-56) units/L Alkaline Phosphatase 92 (35-129) units/L Total Protein 7.1 (6.3-8.2) g/dL Albumin 3.7 L (3.9-5) g/dL Assessment and Plan Nonspecific Elevated troponin Acute renal failure Dehydration Dementia Diabetes Hypertension Prior CVA on Eliquis as an outpatient
--- NOTE | 2020-10-24 11:54 | Ultrasound Report ---
ULTRASOUND RENAL INDICATION / CLINICAL INFORMATION: ARF. COMPARISON: None available. FINDINGS: RIGHT KIDNEY: Length = 9.8 cm. [normal > 9 cm] - Parenchymal Thickness = 1.7 cm. [normal > 1.5 cm] - Echogenicity: Normal. - Hydronephrosis: None. - Cyst or mass: No significant abnormality. - Stones: None seen. LEFT KIDNEY: Length = 10.8 cm. [normal > 9 cm] - Parenchymal Thickness = 1.5 cm. [normal > 1.5 cm] - Echogenicity: Normal. - Hydronephrosis: None. - Cyst or mass: No significant abnormality. - Stones: None seen. URINARY BLADDER: No significant abnormality. FREE FLUID: None. ADDITIONAL FINDINGS: None. IMPRESSION: No significant abnormality. Signer Name: Bennett Lobo Jr, MD Signed: 10/24/2020 11:49 AM Workstation Name: [id number]
[2020-10-24] MEDS: DONEPEZIL 10 MG TAB PO SCH (12:48)
[2020-10-24] MEDS: ESCITALOPRAM 10 MG TAB PO SCH (12:48)
[2020-10-24] MEDS: APIXABAN 2.5 MG TAB PO SCH ×2 (13:49→22:06)
[2020-10-24 14:16] LABS: Hematocrit 36.7 % (30.3-42.9); Hemoglobin 12.7 gm/dl (10.1-14.3); Mean Corpuscular HGB Conc 35 % (30-34); Mean Corpuscular Volume 89 fl (79-97); Platelet Count 175 K/mm3 (140-440); Red Blood Count 4.11 M/mm3 (3.65-5.03); Red Cell Distribution Width 14.4 % (13.2-15.2)
[2020-10-24 14:28] LABS: INR 1.29 (0.87-1.13)
[2020-10-24 14:29] LABS: Partial Thromboplastin Time 31.2 Sec. (24.2-36.6)
[2020-10-24] MEDS: FOLTANX PO SCH (16:14)
[2020-10-25] MEDS: SODIUM CHLORIDE 0.9% 1000 ML 1,000 ML IV SCH ×2 (02:21→22:11)
[2020-10-25 06:22] LABS: Basophils % (Auto) 0.6 % (0.0-1.8); Eosinophils # (Auto) 0.2 K/mm3 (0.0-0.4); Eosinophils % (Auto) 2.6 % (0.0-4.3); Hematocrit 35.2 % (30.3-42.9); Hemoglobin 12.2 gm/dl (10.1-14.3); Lymphocytes # (Auto) 1.8 K/mm3 (1.2-5.4); Lymphocytes % (Auto) 23.1 % (13.4-35.0); Mean Corpuscular HGB Conc 35 % (30-34); Mean Corpuscular Volume 89 fl (79-97); Monocytes # (Auto) 0.9 K/mm3 (0.0-0.8); Monocytes % (Auto) 11.2 % (0.0-7.3); Platelet Count 169 K/mm3 (140-440); Red Blood Count 3.96 M/mm3 (3.65-5.03); Red Cell Distribution Width 14.4 % (13.2-15.2)
[2020-10-25 06:38] LABS: Calcium 10.6 mg/dL (8.4-10.2)
--- NOTE | 2020-10-25 08:34 | Progress Note ---
Assessment and Plan Assessment and plan: 75 YO Female Assisted Living Facility Resident at [facility] Living [facility] with DM, HTN, COPD, Vascular Dementia, HLD, Depression presents to ED for evaluation. Patient has diminished cognition and unable to provide detailed history. Patient history taken from EMS staff, ED staff, as well as assisted living facility staff. As per staff the patient experienced unresponsiveness for several minutes on the day of admission. EMS was notified and upon arrival the patient was found to be in distress and subsequently transported to [facility] for further care and evaluation of the aforementioned symptoms. The patient was seen and evaluated in the emergency department. All lab and imaging studies reviewed. The patient was found to have leukocytosis, SIRS, acute kidney injury and toxic metabolic encephalopathy. The patient was also noted to have elevated troponin. Metabolic encephalopathy. Etiology likely secondary to NSTEMI and renal insufficiency. Acute kidney injury secondary to vasomotor nephropathy +/-ATN. SIRS. Patient with leukocytosis, tachycardia but no obvious signs of infection. Urinalysis negative. NSTEMI. Elevated troponin COPD. Stable. History of hypertension. History of diabetes mellitus type 2 10/24/2020. Follow-up echocardiogram and cardiology consultation. Continue to trend cardiac isoenzymes. Continue IV fluid hydration and follow-up BMP. Check renal ultrasound and consider nephrology consultation. We will hold antihypertensive medications for now. Patient actually normotensive. Also, patient's blood sugar at 125 we will hold on Lantus for now be introduced as needed. Patient with underlying dementia and may be at baseline with regards to her mental status. Continue antibiotics empirically until blood cultures resulted. Urinalysis is negative 10/25/2020. Creatinine has improved to 1.4. Nephrology following. Continue IV fluid hydration. Await cardiology decision regarding ischemic evaluation. Continue supportive care History Interval history: No new issues overnight. Patient is confused and alert and oriented only to name. Hospitalist Physical - Constitutional Vitals: Temp Pulse Resp BP Pulse Ox 98.2 F 99 H 18 154/64 97 10/25/20 03:35 10/25/20 03:35 10/25/20 03:35 10/25/20 03:35 10/25/20 03:35 General appearance: Present: no acute distress - EENT Eyes: Present: PERRL, EOM intact ENT: hearing intact, clear oral mucosa, dentition normal - Neck Neck: Present: supple, normal ROM - Respiratory Respiratory effort: normal Respiratory: bilateral: CTA - Cardiovascular Rhythm: regular Heart Sounds: Present: S1 & S2. Absent: gallop, rub - Extremities Extremities: no ischemia, No edema, Full ROM - Abdominal General gastrointestinal: soft, non-tender, non-distended, normal bowel sounds - Integumentary Integumentary: Present: clear, warm, dry - Neurologic Neurologic: CNII-XII intact, moves all extremities HEART Score - HEART Score Troponin: Troponin T 0.135 ng/mL (0.00-0.029) H* 10/23/20 18:46 Results - Labs CBC & Chem 7: 10/25/20 04:28 10/25/20 04:28 Labs: Laboratory Last Values WBC 8.0 K/mm3 (4.5-11.0) 10/25/20 04:28 RBC 3.96 M/mm3 (3.65-5.03) 10/25/20 04:28 Hgb 12.2 gm/dl (10.1-14.3) 10/25/20 04:28 Hct 35.2 % (30.3-42.9) 10/25/20 04:28 MCV 89 fl (79-97) 10/25/20 04:28 MCH 31 pg (28-32) 10/25/20 04:28 MCHC 35 % (30-34) H 10/25/20 04:28 RDW 14.4 % (13.2-15.2) 10/25/20 04:28 Plt Count 169 K/mm3 (140-440) 10/25/20 04:28 Lymph % (Auto) 23.1 % (13.4-35.0) 10/25/20 04:28 [place] % (Auto) 11.2 % (0.0-7.3) H 10/25/20 04:28 Eos % (Auto) 2.6 % (0.0-4.3) 10/25/20 04:28 Baso % (Auto) 0.6 % (0.0-1.8) 10/25/20 04:28 Lymph # (Auto) 1.8 K/mm3 (1.2-5.4) 10/25/20 04:28 [place] # (Auto) 0.9 K/mm3 (0.0-0.8) H 10/25/20 04:28 Eos # (Auto) 0.2 K/mm3 (0.0-0.4) 10/25/20 04:28 Baso # (Auto) 0.0 K/mm3 (0.0-0.1) 10/25/20 04:28 Seg Neutrophils % 62.5 % (40.0-70.0) 10/25/20 04:28 Seg Neutrophils # 5.0 K/mm3 (1.8-7.7) 10/25/20 04:28 PT 16.7 Sec. (12.2-14.9) H 10/24/20 13:45 INR 1.29 (0.87-1.13) H 10/24/20 13:45 APTT 31.2 Sec. (24.2-36.6) 10/24/20 13:45 Sodium 141 mmol/L (137-145) D 10/25/20 04:28 Potassium 3.7 mmol/L (3.6-5.0) 10/25/20 04:28 Chloride 103.5 mmol/L (98-107) 10/25/20 04:28 Carbon Dioxide 25 mmol/L (22-30) 10/25/20 04:28 Anion Gap 16 mmol/L 10/25/20 04:28 BUN 34 mg/dL (7-17) H 10/25/20 04:28 Creatinine 1.4 mg/dL (0.6-1.2) H 10/25/20 04:28 Estimated GFR 36 ml/min 10/25/20 04:28 BUN/Creatinine Ratio 24 % 10/25/20 04:28 Glucose 98 mg/dL (65-100) 10/25/20 04:28 Calcium 10.6 mg/dL (8.4-10.2) H 10/25/20 04:28 Total Bilirubin 0.70 mg/dL (0.1-1.2) 10/23/20 11:38 AST 19 units/L (5-40) 10/23/20 11:38 ALT 17 units/L (7-56) 10/23/20 11:38 Alkaline Phosphatase 92 units/L (35-129) 10/23/20 11:38 Ammonia 27.0 umol/L (25-60) 10/23/20 11:38 Total Creatine Kinase 166 units/L (30-135) H 10/23/20 11:38 Troponin T 0.135 ng/mL (0.00-0.029) H* 10/23/20 18:46 Total Protein 7.1 g/dL (6.3-8.2) 10/23/20 11:38 Albumin 3.7 g/dL (3.9-5) L 10/23/20 11:38 Albumin/Globulin Ratio 1.1 % 10/23/20 11:38 Triglycerides 155 mg/dL (2-149) H 10/23/20 11:38 Cholesterol 121 mg/dL (50-199) 10/23/20 11:38 LDL Cholesterol Direct 45 mg/dL (50-130) L 10/23/20 11:38 HDL Cholesterol 46 mg/dL (40-59) 10/23/20 11:38 Cholesterol/HDL Ratio 2.63 % 10/23/20 11:38 TSH 3.540 mlU/mL (0.270-4.200) 10/23/20 11:38 Urine Color Yellow (Yellow) 10/23/20 Unknown Urine Turbidity Turbid (Clear) 10/23/20 Unknown Urine pH 5.0 (5.0-7.0) 10/23/20 Unknown Ur Specific [place] 1.013 (1.003-1.030) 10/23/20 Unknown Urine Protein 100 mg/dl mg/dL (Negative) 10/23/20 Unknown Urine Glucose (UA) Neg mg/dL (Negative) 10/23/20 Unknown Urine Ketones Neg mg/dL (Negative) 10/23/20 Unknown Urine Blood Mod (Negative) 10/23/20 Unknown Urine Nitrite Neg (Negative) 10/23/20 Unknown Urine Bilirubin Neg (Negative) 10/23/20 Unknown Urine Urobilinogen < 2.0 mg/dL (<2.0) 10/23/20 Unknown Ur Leukocyte Esterase Mod (Negative) 10/23/20 Unknown Urine WBC (Auto) 5.0 /HPF (0.0-6.0) 10/23/20 Unknown Urine RBC (Auto) 1.0 /HPF (0.0-6.0) 10/23/20 Unknown Urine Bacteria (Auto) 1+ /HPF (Negative) 10/23/20 Unknown Microbiology: Microbiology 10/24/20 13:45 Peripheral/Venous Blood Culture - Preliminary Culture in Progress 10/24/20 13:41 Peripheral/Venous Blood Culture - Preliminary Culture in Progress Neff/IV: Voiding Method External Female Catheter Active Medications - Current Medications Current Medications: Generic Name Dose Route Start Last Admin Trade Name Freq PRN Reason Stop Dose Admin Acetaminophen 650 mg 10/23/20 14:00 Acetaminophen 325 Mg Tab PO Q4H PRN Pain MILD(1-3)/Fever >100.5/JEAN BAPTISTE Albuterol 2.5 mg 10/23/20 16:00 Albuterol 2.5 Mg/3 Ml Nebu IH Q4HRT PRN Shortness Of Breath Amantadine HCl 100 mg 10/24/20 11:00 10/24/20 12:48 Amantadine 100 Mg Cap PO 100 mg DAILY SHEBA Administration Apixaban 2.5 mg 10/24/20 14:00 10/24/20 22:06 Apixaban 2.5 Mg Tab PO 2.5 mg Q12HR SHEBA Administration Protocol Atorvastatin Calcium 40 mg 10/24/20 22:00 10/24/20 22:06 Atorvastatin 40 Mg Tab PO 40 mg QHS SHEBA Administration Donepezil HCl 10 mg 10/24/20 10:00 10/24/20 12:48 Donepezil 10 Mg Tab PO 10 mg QDAY SHEBA Administration Escitalopram Oxalate 10 mg 10/24/20 11:00 10/24/20 12:48 Escitalopram 10 Mg Tab PO 10 mg DAILY SHEBA Administration Hydromorphone HCl 0.5 mg 10/23/20 14:00 Hydromorphone 1 Mg/1 Ml Inj IV Q8H PRN Pain , Severe (7-10) Sodium Chloride 1,000 mls @ 75 mls/hr 10/24/20 09:45 10/25/20 02:21 Nacl 0.9% 1000 Ml IV 75 mls/hr DIRECT SHEBA Administration Miscellaneous Medication 1 each 10/24/20 17:00 10/24/20 16:14 Foltanx PO 1 each BIDDIAB SHEBA Administration Ondansetron HCl 4 mg 10/23/20 14:00 Ondansetron 4 Mg/2 Ml Inj IV Q8H PRN Nausea And Vomiting Oxycodone/Acetaminophen 1 tab 10/23/20 14:00 Oxycodone /Acetaminophen 5-325mg Tab PO Q6H PRN Pain, Moderate (4-6) Sodium Chloride 10 ml 10/23/20 22:00 10/24/20 22:06 Sodium Chloride 0.9% 10 Ml Flush Syringe IV 10 ml BID SHEBA Administration Sodium Chloride 10 ml 10/23/20 14:00 Sodium Chloride 0.9% 10 Ml Flush Syringe IV PRN PRN LINE FLUSH Nutrition/Malnutrition Assess - Dietary Evaluation Nutrition/Malnutrition Findings: Nutrition Notes Start: 10/24/20 12:56 Freq: Status: Active Protocol: Document 10/24/20 12:56 (Rec: 10/24/20 12:58 [id number]) Nutrition Notes Need for Assessment generated from: motor vehicle or caravan salesperson,MST Initial or Follow up Brief Note Current Diagnosis Acute Kidney Injury Other Pertinent Diagnosis UTI, encephalopathy Current Diet Pureed Subjective/Other Information RN screen for MST and skin risk. Jeevan score 14 with vaginal ulceration. Pt NPO at time of visit. CHEMICAL TANK WORKER cleared pt for pureed with thins. Nutrition Intervention Follow-Up By: 10/27/20 Additional Comments FU for intakes
[2020-10-25] MEDS: APIXABAN 2.5 MG TAB PO SCH ×2 (09:21→22:08)
[2020-10-25] MEDS: DONEPEZIL 10 MG TAB PO SCH (09:21)
[2020-10-25] MEDS: ESCITALOPRAM 10 MG TAB PO SCH (09:21)
[2020-10-25] MEDS: FOLTANX PO SCH ×2 (09:21→17:30)
--- NOTE | 2020-10-25 09:48 | Progress Note ---
Assessment and Plan 1. Essential hypertension 2. History of previous CVA 3. Polyarthritis 4. COPD 5. Type 2 diabetes mellitus 6. Acute on chronic renal failure 7. Abnormal EKG Echocardiogram shows normal left ventricular size with left ventricular ejection fraction 46 to 50%. Equivocal serum troponin level elevation secondary to underlying renal ins ufficiency. Resting EKG is abnormal consistent with probable old myocardial infarction Plan. Patient is currently stable will recommend a stress MPI prior to discharge Subjective Date of service: 10/25/20 Interval history: No cardiac complains Objective Vital Signs Temp Pulse Pulse Pulse Resp BP BP 10/25/20 07:46 97.3 F L 90 18 148/74 10/25/20 03:35 98.2 F 99 H 18 154/64 10/24/20 23:16 97.3 F L 18 115/68 10/24/20 21:20 10/24/20 19:51 98.1 F 94 H 18 129/51 10/24/20 16:36 96.9 F L 89 16 140/56 10/24/20 12:15 97.3 F L 90 16 113/55 10/24/20 10:00 88 88 17 Pulse Ox 10/25/20 07:46 86 10/25/20 03:35 97 10/24/20 23:16 10/24/20 21:20 97 10/24/20 19:51 96 10/24/20 16:36 97 10/24/20 12:15 97 10/24/20 10:00 96 - Physical Examination General: Appears Well, No Apparent Distress HEENT: Positive: Normocephaly Neck: Positive: trachea midline. Negative: JVD/HJR Cardiac: Positive: Regular Rate, irregularly irregular, PMI, Dilated, Laterally Displaced. Negative: S3, S4 Lungs: Positive: clear to auscultation, No Wheeze, Rales, Rhonchi Neuro: Positive: Sensory Function Intact, Resting Tremor Abdomen: Positive: Soft, Active Bowel Sounds Extremities: Absent: edema - Labs and Meds Coagulation 10/24/20 Range/Units 13:45 PT 16.7 H (12.2-14.9) Sec. INR 1.29 H (0.87-1.13) APTT 31.2 (24.2-36.6) Sec. CBC 07/09/21 07/10/21 Range/Units 13:45 04:28 WBC 7.9 8.0 (4.5-11.0) K/mm3 RBC 4.11 3.96 (3.65-5.03) M/mm3 Hgb 12.7 12.2 (10.1-14.3) gm/dl Hct 36.7 35.2 (30.3-42.9) % Plt Count 175 169 (140-440) K/mm3 Lymph # (Auto) 1.8 (1.2-5.4) K/mm3 [place] # (Auto) 0.9 H (0.0-0.8) K/mm3 Eos # (Auto) 0.2 (0.0-0.4) K/mm3 Baso # (Auto) 0.0 (0.0-0.1) K/mm3 Comprehensive Metabolic Panel 10/24/20 10/25/20 Range/Units 13:45 04:28 Sodium 141 D (137-145) mmol/L Potassium 3.7 (3.6-5.0) mmol/L Chloride 103.5 (98-107) mmol/L Carbon Dioxide 25 (22-30) mmol/L BUN 34 H (7-17) mg/dL Creatinine 2.0 H 1.4 H (0.6-1.2) mg/dL Glucose 98 (65-100) mg/dL Calcium 10.6 H (8.4-10.2) mg/dL
[2020-10-26 06:10] LABS: Hematocrit 36.4 % (30.3-42.9); Hemoglobin 12.5 gm/dl (10.1-14.3); Mean Corpuscular HGB Conc 34 % (30-34); Mean Corpuscular Volume 89 fl (79-97); Platelet Count 178 K/mm3 (140-440); Red Blood Count 4.09 M/mm3 (3.65-5.03); Red Cell Distribution Width 14.5 % (13.2-15.2)
[2020-10-26 06:28] LABS: Calcium 10.3 mg/dL (8.4-10.2)
[2020-10-26] MEDS: APIXABAN 2.5 MG TAB PO SCH ×2 (09:19→21:00)
[2020-10-26] MEDS: ESCITALOPRAM 10 MG TAB PO SCH (09:19)
[2020-10-26] MEDS: FOLTANX PO SCH ×2 (09:20→17:39)
[2020-10-26] MEDS: DONEPEZIL 10 MG TAB PO SCH (09:20)
--- NOTE | 2020-10-26 09:52 | Progress Note ---
Assessment and Plan 1. Essential hypertension 2. History of previous CVA 3. Polyarthritis 4. COPD 5. Type 2 diabetes mellitus 6. Acute on chronic renal failure 7. Abnormal EKG Echocardiogram shows normal left ventricular size with left ventricular ejection fraction 46 to 50%. Equivocal serum troponin level elevation secondary to underlying renal ins ufficiency. Resting EKG is abnormal consistent with probable old myocardial infarction Plan. Patient is currently stable will recommend a stress MPI prior to discharge in am. Subjective Date of service: 10/26/20 Interval history: No cardiac complains Objective Vital Signs Temp Pulse Resp BP BP Pulse Ox 10/26/20 07:53 97.8 F 96 H 18 152/64 95 10/26/20 04:00 97.9 F 85 18 135/72 97 10/25/20 23:52 97.8 F 98 H 18 138/68 96 10/25/20 22:00 18 10/25/20 19:25 95 H 10/25/20 19:09 97.9 F 92 H 18 154/56 95 10/25/20 15:58 97.1 F L 95 H 18 154/65 97 10/25/20 10:53 97.4 F L 90 18 112/55 97 10/25/20 10:00 18 - Physical Examination General: Appears Well, No Apparent Distress HEENT: Positive: Normocephaly Neck: Positive: trachea midline. Negative: JVD/HJR Cardiac: Positive: Regular Rate, S1/S2, PMI, Laterally Displaced. Negative: S3, S4 Lungs: Positive: clear to auscultation, No Wheeze, Rales, Rhonchi Neuro: Positive: Sensory Function Intact, Resting Tremor Abdomen: Positive: Soft, Active Bowel Sounds Extremities: Absent: edema - Labs and Meds CBC 10/26/20 Range/Units 05:08 WBC 8.9 (4.5-11.0) K/mm3 RBC 4.09 (3.65-5.03) M/mm3 Hgb 12.5 (10.1-14.3) gm/dl Hct 36.4 (30.3-42.9) % Plt Count 178 (140-440) K/mm3 Comprehensive Metabolic Panel 10/26/20 Range/Units 05:08 Sodium 143 (137-145) mmol/L Potassium 3.4 L (3.6-5.0) mmol/L Chloride 106.8 (98-107) mmol/L Carbon Dioxide 24 (22-30) mmol/L BUN 22 H (7-17) mg/dL Creatinine 1.0 (0.6-1.2) mg/dL Glucose 146 H (65-100) mg/dL Calcium 10.3 H (8.4-10.2) mg/dL
--- NOTE | 2020-10-26 10:01 | Progress Note ---
Assessment and Plan Assessment and plan: 75 YO Female Assisted Living Facility Resident at [facility] Living [facility] with DM, HTN, COPD, Vascular Dementia, HLD, Depression presents to ED for evaluation. Patient has diminished cognition and unable to provide detailed history. Patient history taken from EMS staff, ED staff, as well as assisted living facility staff. As per staff the patient experienced unresponsiveness for several minutes on the day of admission. EMS was notified and upon arrival the patient was found to be in distress and subsequently transported to [facility] for further care and evaluation of the aforementioned symptoms. The patient was seen and evaluated in the emergency department. All lab and imaging studies reviewed. The patient was found to have leukocytosis, SIRS, acute kidney injury and toxic metabolic encephalopathy. The patient was also noted to have elevated troponin. Metabolic encephalopathy. Etiology likely secondary to NSTEMI and renal insufficiency. Acute kidney injury secondary to vasomotor nephropathy +/-ATN. SIRS. Patient with leukocytosis, tachycardia but no obvious signs of infection. Urinalysis negative. NSTEMI. Elevated troponin COPD. Stable. History of hypertension. History of diabetes mellitus type 2 10/24/2020. Follow-up echocardiogram and cardiology consultation. Continue to trend cardiac isoenzymes. Continue IV fluid hydration and follow-up BMP. Check renal ultrasound and consider nephrology consultation. We will hold antihypertensive medications for now. Patient actually normotensive. Also, patient's blood sugar at 125 we will hold on Lantus for now be introduced as needed. Patient with underlying dementia and may be at baseline with regards to her mental status. Continue antibiotics empirically until blood cultures resulted. Urinalysis is negative 10/25/2020. Creatinine has improved to 1.4. Nephrology following. Continue IV fluid hydration. Await cardiology decision regarding ischemic evaluation. Continue supportive care 10/26/2020. Echocardiogram shows normal left ventricular size with left ventricular ejection fraction 46 to 50%. Equivocal serum troponin level elevation secondary to underlying renal insufficiency. Resting EKG is abnormal consistent with probable old myocardial infarction. Cardiology recommends stress test in a.m. Neurology evaluation in a.m. for encephalopathy. We will stop IV fluids. Acute kidney injury appears to have resolved with creatinine normal. PT evaluation. History Interval history: No new issues overnight. Hospitalist Physical - Constitutional Vitals: Temp Pulse Resp BP Pulse Ox 97.8 F 96 H 18 152/64 95 10/26/20 07:53 10/26/20 07:53 10/26/20 07:53 10/26/20 07:53 10/26/20 07:53 General appearance: Present: no acute distress - EENT Eyes: Present: PERRL, EOM intact ENT: hearing intact, clear oral mucosa, dentition normal - Neck Neck: Present: supple, normal ROM - Respiratory Respiratory effort: normal Respiratory: bilateral: CTA - Cardiovascular Rhythm: regular Heart Sounds: Present: S1 & S2. Absent: gallop, rub - Extremities Extremities: no ischemia, No edema, Full ROM - Abdominal General gastrointestinal: soft, non-tender, non-distended, normal bowel sounds - Integumentary Integumentary: Present: clear, warm, dry - Neurologic Neurologic: CNII-XII intact, moves all extremities HEART Score - HEART Score Troponin: Troponin T 0.135 ng/mL (0.00-0.029) H* 10/23/20 18:46 Results - Labs CBC & Chem 7: 10/26/20 05:08 10/26/20 05:08 Labs: Laboratory Last Values WBC 8.9 K/mm3 (4.5-11.0) 10/26/20 05:08 RBC 4.09 M/mm3 (3.65-5.03) 10/26/20 05:08 Hgb 12.5 gm/dl (10.1-14.3) 10/26/20 05:08 Hct 36.4 % (30.3-42.9) 10/26/20 05:08 MCV 89 fl (79-97) 10/26/20 05:08 MCH 30 pg (28-32) 10/26/20 05:08 MCHC 34 % (30-34) 10/26/20 05:08 RDW 14.5 % (13.2-15.2) 10/26/20 05:08 Plt Count 178 K/mm3 (140-440) 10/26/20 05:08 Lymph % (Auto) 23.1 % (13.4-35.0) 10/25/20 04:28 [place] % (Auto) 11.2 % (0.0-7.3) H 10/25/20 04:28 Eos % (Auto) 2.6 % (0.0-4.3) 10/25/20 04:28 Baso % (Auto) 0.6 % (0.0-1.8) 10/25/20 04:28 Lymph # (Auto) 1.8 K/mm3 (1.2-5.4) 10/25/20 04:28 [place] # (Auto) 0.9 K/mm3 (0.0-0.8) H 10/25/20 04:28 Eos # (Auto) 0.2 K/mm3 (0.0-0.4) 10/25/20 04:28 Baso # (Auto) 0.0 K/mm3 (0.0-0.1) 10/25/20 04:28 Seg Neutrophils % 62.5 % (40.0-70.0) 10/25/20 04:28 Seg Neutrophils # 5.0 K/mm3 (1.8-7.7) 10/25/20 04:28 PT 16.7 Sec. (12.2-14.9) H 10/24/20 13:45 INR 1.29 (0.87-1.13) H 10/24/20 13:45 APTT 31.2 Sec. (24.2-36.6) 10/24/20 13:45 Sodium 143 mmol/L (137-145) 10/26/20 05:08 Potassium 3.4 mmol/L (3.6-5.0) L 10/26/20 05:08 Chloride 106.8 mmol/L (98-107) 10/26/20 05:08 Carbon Dioxide 24 mmol/L (22-30) 10/26/20 05:08 Anion Gap 16 mmol/L 10/26/20 05:08 BUN 22 mg/dL (7-17) H 10/26/20 05:08 Creatinine 1.0 mg/dL (0.6-1.2) 10/26/20 05:08 Estimated GFR 54 ml/min 10/26/20 05:08 BUN/Creatinine Ratio 22 % 10/26/20 05:08 Glucose 146 mg/dL (65-100) H 10/26/20 05:08 Calcium 10.3 mg/dL (8.4-10.2) H 10/26/20 05:08 Total Bilirubin 0.70 mg/dL (0.1-1.2) 10/23/20 11:38 AST 19 units/L (5-40) 10/23/20 11:38 ALT 17 units/L (7-56) 10/23/20 11:38 Alkaline Phosphatase 92 units/L (35-129) 10/23/20 11:38 Ammonia 27.0 umol/L (25-60) 10/23/20 11:38 Total Creatine Kinase 166 units/L (30-135) H 10/23/20 11:38 Troponin T 0.135 ng/mL (0.00-0.029) H* 10/23/20 18:46 Total Protein 7.1 g/dL (6.3-8.2) 10/23/20 11:38 Albumin 3.7 g/dL (3.9-5) L 10/23/20 11:38 Albumin/Globulin Ratio 1.1 % 10/23/20 11:38 Triglycerides 155 mg/dL (2-149) H 10/23/20 11:38 Cholesterol 121 mg/dL (50-199) 10/23/20 11:38 LDL Cholesterol Direct 45 mg/dL (50-130) L 10/23/20 11:38 HDL Cholesterol 46 mg/dL (40-59) 10/23/20 11:38 Cholesterol/HDL Ratio 2.63 % 10/23/20 11:38 TSH 3.540 mlU/mL (0.270-4.200) 10/23/20 11:38 Urine Color Yellow (Yellow) 10/23/20 Unknown Urine Turbidity Turbid (Clear) 10/23/20 Unknown Urine pH 5.0 (5.0-7.0) 10/23/20 Unknown Ur Specific [place] 1.013 (1.003-1.030) 10/23/20 Unknown Urine Protein 100 mg/dl mg/dL (Negative) 10/23/20 Unknown Urine Glucose (UA) Neg mg/dL (Negative) 10/23/20 Unknown Urine Ketones Neg mg/dL (Negative) 10/23/20 Unknown Urine Blood Mod (Negative) 10/23/20 Unknown Urine Nitrite Neg (Negative) 10/23/20 Unknown Urine Bilirubin Neg (Negative) 10/23/20 Unknown Urine Urobilinogen < 2.0 mg/dL (<2.0) 10/23/20 Unknown Ur Leukocyte Esterase Mod (Negative) 10/23/20 Unknown Urine WBC (Auto) 5.0 /HPF (0.0-6.0) 10/23/20 Unknown Urine RBC (Auto) 1.0 /HPF (0.0-6.0) 10/23/20 Unknown Urine Bacteria (Auto) 1+ /HPF (Negative) 10/23/20 Unknown Microbiology: Microbiology 10/24/20 13:45 Peripheral/Venous Blood Culture - Preliminary NO GROWTH AFTER 24 HOURS 10/24/20 13:41 Peripheral/Venous Blood Culture - Preliminary NO GROWTH AFTER 24 HOURS Neff/IV: Voiding Method External Female Catheter Active Medications - Current Medications Current Medications: Generic Name Dose Route Start Last Admin Trade Name Freq PRN Reason Stop Dose Admin Acetaminophen 650 mg 10/23/20 14:00 Acetaminophen 325 Mg Tab PO Q4H PRN Pain MILD(1-3)/Fever >100.5/JEAN BAPTISTE Albuterol 2.5 mg 10/23/20 16:00 Albuterol 2.5 Mg/3 Ml Nebu IH Q4HRT PRN Shortness Of Breath Amantadine HCl 100 mg 10/24/20 11:00 10/26/20 09:19 Amantadine 100 Mg Cap PO 100 mg DAILY SHEBA Administration Apixaban 2.5 mg 10/24/20 14:00 10/26/20 09:19 Apixaban 2.5 Mg Tab PO 2.5 mg Q12HR SHEBA Administration Protocol Atorvastatin Calcium 40 mg 10/24/20 22:00 10/25/20 22:08 Atorvastatin 40 Mg Tab PO 40 mg QHS SHEBA Administration Donepezil HCl 10 mg 10/24/20 10:00 10/26/20 09:20 Donepezil 10 Mg Tab PO 10 mg QDAY SHEBA Administration Escitalopram Oxalate 10 mg 10/24/20 11:00 10/26/20 09:19 Escitalopram 10 Mg Tab PO 10 mg DAILY SHEBA Administration Hydromorphone HCl 0.5 mg 10/23/20 14:00 Hydromorphone 1 Mg/1 Ml Inj IV Q8H PRN Pain , Severe (7-10) Sodium Chloride 1,000 mls @ 75 mls/hr 10/24/20 09:45 10/25/20 22:11 Nacl 0.9% 1000 Ml IV 75 mls/hr DIRECT SHEBA Administration Miscellaneous Medication 1 each 10/24/20 17:00 10/26/20 09:20 Foltanx PO 1 each BIDDIAB SHEBA Administration Ondansetron HCl 4 mg 10/23/20 14:00 Ondansetron 4 Mg/2 Ml Inj IV Q8H PRN Nausea And Vomiting Oxycodone/Acetaminophen 1 tab 10/23/20 14:00 Oxycodone /Acetaminophen 5-325mg Tab PO Q6H PRN Pain, Moderate (4-6) Sodium Chloride 10 ml 10/23/20 22:00 10/26/20 09:20 Sodium Chloride 0.9% 10 Ml Flush Syringe IV 10 ml BID SHEBA Administration Sodium Chloride 10 ml 10/23/20 14:00 Sodium Chloride 0.9% 10 Ml Flush Syringe IV PRN PRN LINE FLUSH Nutrition/Malnutrition Assess - Dietary Evaluation Nutrition/Malnutrition Findings: Nutrition Notes Start: 10/24/20 12:56 Freq: Status: Active Protocol: Document 10/24/20 12:56 (Rec: 10/24/20 12:58 MK [id number]) Nutrition Notes Need for Assessment generated from: rolled seat trimmer,MST Initial or Follow up Brief Note Current Diagnosis Acute Kidney Injury Other Pertinent Diagnosis UTI, encephalopathy Current Diet Pureed Subjective/Other Information RN screen for MST and skin risk. Jeevan score 14 with vaginal ulceration. Pt NPO at time of visit. MANAGER PRODUCT MANAGEMENT cleared pt for pureed with thins. Nutrition Intervention Follow-Up By: 10/27/20 Additional Comments FU for intakes
[2020-10-26 11:38] LABS: Basophils # (Auto) 0.1 K/mm3 (0.0-0.1); Basophils % (Auto) 0.8 % (0.0-1.8); Eosinophils # (Auto) 0.2 K/mm3 (0.0-0.4); Eosinophils % (Auto) 2.5 % (0.0-4.3); Lymphocytes # (Auto) 1.8 K/mm3 (1.2-5.4); Lymphocytes % (Auto) 20.5 % (13.4-35.0); Monocytes # (Auto) 0.9 K/mm3 (0.0-0.8); Monocytes % (Auto) 10.4 % (0.0-7.3)
--- NOTE | 2020-10-26 11:40 | Consultation ---
History of Present Illness Consult date: 10/26/20 Reason for Consult: Episode of change in mentation History of present illness: She became unresponsive History of present illness: 75 YO Female Assisted Living Facility Resident at [facility] with DM, HTN, COPD, Vascular Dementia, HLD, Depression presents to ED for evaluation. Patient has diminished cognition and unable to provide detailed history. Patient history taken from EMS staff, ED staff, as well as assisted living facility staff. As per staff the patient experienced unresponsiveness for several minutes today. EMS was notified and upon arrival the patient was found to be in distress and subsequently transported to [facility] for further care and evaluation of the aforementioned symptoms. The patient was seen and evaluated in the emergency department. All lab and imaging studies reviewed. The patient was found to have leukocytosis suspected secondary to urinary tract infection, dehydration and acute kidney injury, as well as encephalopathy. Patient placed in observation status and admitted to medical floor. Patient treated with empiric dose of IV antibiotic therapy, as well as IV fluid resuscitation therapy and supportive care. No further history is obtainable. Patient has a palpable positive gag reflex and able to protect her airway without difficulty the time my evaluation. No prior admission for review. All medication listed at time of admission has been reconciled. Advanced care planning conducted in ED. during admission Ct brain is unremarkable pt. Kidney function improved with creatini on admission was 2.6 today is 1 she is alert disoriented follow only simple command she is on Eliquise ? she is with NSR , evaluated By vcardiology Echo is with EF#45-50% cardiac enzymes initially was elevated Past History Past Medical History: COPD, diabetes, hypertension Past Surgical History: No surgical history, Other (Reviewed) Social history: single. denies: smoking, alcohol abuse, prescription drug abuse Family history: diabetes, hypertension Medications and Allergies Allergies Allergy/AdvReac Type Severity Reaction Status Date / Time clopidogrel [From Plavix] Allergy Unknown Verified 09/27/20 00:07 Review of Systems ROS unobtainable: due to mental status Past History Past Medical History: COPD, diabetes, hypertension Past Surgical History: No surgical history Social history: single. denies: smoking, alcohol abuse, prescription drug abuse Family history: diabetes, hypertension Medications and Allergies Allergies Allergy/AdvReac Type Severity Reaction Status Date / Time cephalexin [From Keflex] Allergy Unknown Verified 10/24/20 06:33 clopidogrel [From Plavix] Allergy Unknown Verified 09/27/20 00:07 Home Medications Medication Instructions Recorded Confirmed Last Taken Type Amlodipine Besylate [Norvasc] 10 mg PO QDAY 10/23/20 10/23/20 Unknown History Apixaban [Eliquis] 5 mg PO QDAY 10/23/20 10/23/20 Unknown History AtorvaSTATin [Lipitor] 40 mg PO QHS 10/23/20 10/23/20 Unknown History Diclofenac Sodium 75 mg PO BID 10/23/20 10/23/20 Unknown History Escitalopram [Lexapro] 10 mg PO QDAY 10/23/20 10/23/20 Unknown History HYDROcodone/ACETAMINOPHEN 1 each PO Q6HR PRN 10/23/20 10/23/20 Unknown History [Hydrocodone-Acetamin 7.5-300] Insulin Glargine,Hum.rec.anlog 10 unit SQ QHS 10/23/20 10/23/20 Unknown History [Lantus Solostar] Loperamide [Imodium] 2 mg PO Q2HR 10/23/20 10/23/20 Unknown History Losartan Potassium 100 mg PO QDAY 10/23/20 10/23/20 Unknown History Mecobal/Levomefolat Ca/B6 Phos 1 tab PO BID 10/23/20 10/23/20 Unknown History [Foltanx Tablet] Vilazodone HCl [Viibryd] 1 tab PO DAILY 10/23/20 10/23/20 Unknown History Zaleplon 5 mg PO QDAY 10/23/20 10/23/20 Unknown History amantadine [Symmetrel] 100 mg PO DAILY 10/23/20 10/23/20 Unknown History diazePAM [Diazepam] 10 mg PO QHS 10/23/20 10/23/20 Unknown History donepeziL [Aricept] 10 mg PO QDAY 10/23/20 10/23/20 Unknown History hydroCHLOROthiazide 12.5 mg PO QDAY 10/23/20 10/23/20 Unknown History [Hydrochlorothiazide] tiZANidine [Zanaflex 4mg TAB] 4 mg PO QDAY PRN 10/23/20 10/23/20 Unknown History traMADoL [Ultram] 50 mg PO Q6HR PRN 10/23/20 10/23/20 Unknown History Active Meds: Active Medications Acetaminophen (Acetaminophen 325 Mg Tab) 650 mg PO Q4H PRN PRN Reason: Pain MILD(1-3)/Fever >100.5/JEAN BAPTISTE Albuterol (Albuterol 2.5 Mg/3 Ml Nebu) 2.5 mg IH Q4HRT PRN PRN Reason: Shortness Of Breath Amantadine HCl (Amantadine 100 Mg Cap) 100 mg PO DAILY [facility] Last Admin: 10/26/20 09:19 Dose: 100 mg Documented by: Apixaban (Apixaban 2.5 Mg Tab) 2.5 mg PO Q12HR [facility]; Protocol Last Admin: 10/26/20 09:19 Dose: 2.5 mg Documented by: Atorvastatin Calcium (Atorvastatin 40 Mg Tab) 40 mg PO QHS [facility] Last Admin: 10/25/20 22:08 Dose: 40 mg Documented by: Donepezil HCl (Donepezil 10 Mg Tab) 10 mg PO QDAY [facility] Last Admin: 10/26/20 09:20 Dose: 10 mg Documented by: Escitalopram Oxalate (Escitalopram 10 Mg Tab) 10 mg PO DAILY [facility] Last Admin: 10/26/20 09:19 Dose: 10 mg Documented by: Hydromorphone HCl (Hydromorphone 1 Mg/1 Ml Inj) 0.5 mg IV Q8H PRN PRN Reason: Pain , Severe (7-10) Sodium Chloride (Nacl 0.9% 1000 Ml) 1,000 mls @ 75 mls/hr IV DIRECT [facility] Last Admin: 10/25/20 22:11 Dose: 75 mls/hr Documented by: Miscellaneous Medication (Foltanx) 1 each PO BIDDIAB [facility] Last Admin: 10/26/20 09:20 Dose: 1 each Documented by: Ondansetron HCl (Ondansetron 4 Mg/2 Ml Inj) 4 mg IV Q8H PRN PRN Reason: Nausea And Vomiting Oxycodone/Acetaminophen (Oxycodone /Acetaminophen 5-325mg Tab) 1 tab PO Q6H PRN PRN Reason: Pain, Moderate (4-6) Sodium Chloride (Sodium Chloride 0.9% 10 Ml Flush Syringe) 10 ml IV BID [facility] Last Admin: 10/26/20 09:20 Dose: 10 ml Documented by: Sodium Chloride (Sodium Chloride 0.9% 10 Ml Flush Syringe) 10 ml IV PRN PRN PRN Reason: LINE FLUSH Physical Examination - Vital Signs Vital Signs: Vital Signs Pulse Resp Pulse Ox 81 12 97 10/23/20 10:06 10/23/20 10:06 10/23/20 10:06 - Constitutional General appearance: comfortable, other (agitated,confused slightly in bed with restrain coverd with feaces) - EENT EENT: Present: PERRL, mucous membranes moist - Respiratory Respiratory: Present: chest non-tender, lungs clear, rhonchi - Cardiovascular Cardiovascular: Present: regular rate, normal S1, normal S2 Extremities: Present: no peripheral edema bilatateraly, no clubbing, cyanosis - Gastrointestinal Gastrointestinal: Present: normoactive bowel sounds - Integumentary Integumentary: Present: normal - Neurologic Cranial nerve examination: PERRL, EOMI, VFF, ptosis, intact Speech examination: other (she mumble with no clear speech ) Detailed motor examination: grossly full strength in - Musculoskeletal Musculoskeletal: Present: other (pt. is alert knows her name , not place date or president name , follow only simple command , no clear focal weakness is appreciated ) Results - Laboratory Findings CBC and BMP: 10/26/20 05:08 10/26/20 05:08 Abnormal Lab Findings: Abnormal Labs 10/23/20 10/23/20 10/23/20 11:38 11:38 11:38 WBC 12.4 H MCHC 35 H Lymph % (Auto) 7.4 L Barnes % (Auto) Lymph # (Auto) 0.9 L Barnes # (Auto) Seg Neutrophils % 87.2 H Seg Neutrophils # 10.8 H PT INR Sodium 134 L Potassium Chloride 94.1 L BUN 50 H Creatinine 2.6 H Glucose 125 H Calcium 11.5 H Total Creatine Kinase 166 H Troponin T 0.151 H* Albumin 3.7 L Triglycerides 155 H LDL Cholesterol Direct 45 L 10/23/20 10/24/20 10/24/20 18:46 13:45 13:45 WBC MCHC 35 H Lymph % (Auto) Barnes % (Auto) Lymph # (Auto) Barnes # (Auto) Seg Neutrophils % Seg Neutrophils # PT 16.7 H INR 1.29 H Sodium Potassium Chloride BUN Creatinine Glucose Calcium Total Creatine Kinase Troponin T 0.135 H* Albumin Triglycerides LDL Cholesterol Direct 10/24/20 10/25/20 10/25/20 13:45 04:28 04:28 WBC MCHC 35 H Lymph % (Auto) Barnes % (Auto) 11.2 H Lymph # (Auto) Barnes # (Auto) 0.9 H Seg Neutrophils % Seg Neutrophils # PT INR Sodium Potassium Chloride BUN 34 H Creatinine 2.0 H 1.4 H Glucose Calcium 10.6 H Total Creatine Kinase Troponin T Albumin Triglycerides LDL Cholesterol Direct 10/26/20 10/26/20 05:08 05:08 WBC MCHC Lymph % (Auto) Barnes % (Auto) 10.4 H Lymph # (Auto) Barnes # (Auto) 0.9 H Seg Neutrophils % Seg Neutrophils # PT INR Sodium Potassium 3.4 L Chloride BUN 22 H Creatinine Glucose 146 H Calcium 10.3 H Total Creatine Kinase Troponin T Albumin Triglycerides LDL Cholesterol Direct Assessment and Plan Assessment and Plan - Patient Problems # Metabolic encephalopathy and or confusion -she presented with episode of acute confusion resolved as per record ? -possible seizure -Toximetabolic and or drug effect can not be excluded -Ct brain is unremarkable -initial Creatinie was 2.6 --- today 1 - neuro check, -seizure precaution, - aspiration precautions, -fall precautions, -IV fluid resuscitation therapy, -echocardiogram, -cardiology team consulted in ED. -MRI brain am --with ativan before the study -EEG am -check for orthostatic changes # Possible underlying advanced dementia -she is on Aricept -Ct brain is unremarkable -Add namenda 5 mg bid -Hold symmetril -B21 ,TSH # pt. is on Eliquis -Etiology not clear -review old record -property assessment monitor -MRI brain -Echo is noted #GLENN (acute kidney injury) -Monitor urine output every shift, - IV fluid resuscitation therapy, BMP, repeat BMP in a.m. to monitor serum creatinine as well as GFR. # Volume depletion -IV fluid resuscitation therapy, supportive care. # Urinary tract infection -Urinalysis, empiric IV antibiotic therapy, supportive care. # Elevated troponin -Serial cardiac enzymes, -EKG, - remote telemetry monitoring, - cardiology team consulted, -echocardiogram Ef#45-50% NSR # DVT prophylaxis -SCD to bilateral lower extremities while in bed # Advance care planning - disease education conducted, care plan discussed, diagnosis discussed, prognosis discussed, patient is full code. Patient family acknowledges understanding agree with care plan, +30 minutes PLAN 1-cardiac monitoring 2-check for orthostatic changes 3- Hydration 4- EEG 5- MRI Brain wo qd - will need ativan before MRI 6- Hold symmetril 7-trial of namenda 5 mg bid 8- ? Eliquis 9- ST,PT DVT precaution SCD will follow
[2020-10-26 11:42] LABS: Platelet Estimate Consistent w Auto; RBC Morphology Normal; Total Cells Counted 100
[2020-10-26] MEDS: MEMANTINE 5 MG TAB PO SCH (14:19)
[2020-10-26] MEDS ORDERED: HALOPERIDOL LACTATE 5 MG/1 ML INJ IM ONE (14:30)
[2020-10-26] MEDS ORDERED: LORazepam 2 MG/ML VIAL IV NR (14:30)
[2020-10-26] MEDS: oxyCODONE /ACETAMINOPHEN 5-325MG TAB PO PRN (20:58)
[2020-10-27 06:21] LABS: Hematocrit 36.1 % (30.3-42.9); Hemoglobin 12.5 gm/dl (10.1-14.3); Mean Corpuscular HGB Conc 35 % (30-34); Mean Corpuscular Volume 88 fl (79-97); Platelet Count 174 K/mm3 (140-440); Red Blood Count 4.08 M/mm3 (3.65-5.03); Red Cell Distribution Width 14.4 % (13.2-15.2)
[2020-10-27 06:38] LABS: BUN/Creatinine Ratio 19; Blood Urea Nitrogen 17 mg/dL (7-17); Calcium 10.5 mg/dL (8.4-10.2); Hemolysis Index 0
--- NOTE | 2020-10-27 08:06 | Progress Note ---
Assessment and Plan Assessment and plan: 75 YO Female Assisted Living Facility Resident at [facility] with DM, HTN, COPD, Vascular Dementia, HLD, Depression presents to ED for evaluation. Patient has diminished cognition and unable to provide detailed history. Patient history taken from EMS staff, ED staff, as well as assisted living facility staff. As per staff the patient experienced unresponsiveness for several minutes on the day of admission. EMS was notified and upon arrival the patient was found to be in distress and subsequently transported to [facility] for further care and evaluation of the aforementioned symptoms. The patient was seen and evaluated in the emergency department. All lab and imaging studies reviewed. The patient was found to have leukocytosis, SIRS, acute kidney injury and toxic metabolic encephalopathy. The patient was also noted to have elevated troponin. Metabolic encephalopathy. Etiology likely secondary to NSTEMI and renal insufficiency. Acute kidney injury secondary to vasomotor nephropathy +/-ATN. SIRS. Patient with leukocytosis, tachycardia but no obvious signs of infection. Urinalysis negative. NSTEMI. Elevated troponin COPD. Stable. History of hypertension. History of diabetes mellitus type 2 10/24/2020. Follow-up echocardiogram and cardiology consultation. Continue to trend cardiac isoenzymes. Continue IV fluid hydration and follow-up BMP. Check renal ultrasound and consider nephrology consultation. We will hold antihypertensive medications for now. Patient actually normotensive. Also, patient's blood sugar at 125 we will hold on Lantus for now be introduced as needed. Patient with underlying dementia and may be at baseline with regards to her mental status. Continue antibiotics empirically until blood cultures resulted. Urinalysis is negative 10/25/2020. Creatinine has improved to 1.4. Nephrology following. Continue IV fluid hydration. Await cardiology decision regarding ischemic evaluation. Continue supportive care 10/26/2020. Echocardiogram shows normal left ventricular size with left ventricular ejection fraction 46 to 50%. Equivocal serum troponin level elevation secondary to underlying renal insufficiency. Resting EKG is abnormal consistent with probable old myocardial infarction. Cardiology recommends stress test in a.m. Neurology evaluation in a.m. for encephalopathy. We will stop IV fluids. Acute kidney injury appears to have resolved with creatinine normal. PT evaluation. 10/27/2020. Patient with metabolic encephalopathy likely related to acute kidney injury/ARF. Creatinine has returned to normal at 0.9. CT of brain was unremarkable. Follow-up MRI brain and EEG per neurology recommendation. Patient likely has underlying advanced dementia. Namenda 5 mg twice daily added by neurology. Stress test per cardiology. History Interval history: No new issues overnight. Hospitalist Physical - Constitutional Vitals: Temp Pulse Resp BP Pulse Ox 97.9 F 112 H 20 166/70 96 10/27/20 03:15 10/27/20 03:15 10/27/20 03:15 10/27/20 03:15 10/27/20 03:15 General appearance: Present: no acute distress - EENT Eyes: Present: PERRL, EOM intact ENT: hearing intact, clear oral mucosa, dentition normal - Neck Neck: Present: supple, normal ROM - Respiratory Respiratory effort: normal Respiratory: bilateral: CTA - Cardiovascular Rhythm: regular Heart Sounds: Present: S1 & S2. Absent: gallop, rub - Extremities Extremities: no ischemia, No edema, Full ROM - Abdominal General gastrointestinal: soft, non-tender, non-distended, normal bowel sounds - Integumentary Integumentary: Present: clear, warm, dry - Neurologic Neurologic: CNII-XII intact, moves all extremities HEART Score - HEART Score Troponin: Troponin T 0.135 ng/mL (0.00-0.029) H* 10/23/20 18:46 Results - Labs CBC & Chem 7: 10/27/20 05:59 10/27/20 05:59 Labs: Laboratory Last Values WBC 8.9 K/mm3 (4.5-11.0) 10/27/20 05:59 RBC 4.08 M/mm3 (3.65-5.03) 10/27/20 05:59 Hgb 12.5 gm/dl (10.1-14.3) 10/27/20 05:59 Hct 36.1 % (30.3-42.9) 10/27/20 05:59 MCV 88 fl (79-97) 10/27/20 05:59 MCH 31 pg (28-32) 10/27/20 05:59 MCHC 35 % (30-34) H 10/27/20 05:59 RDW 14.4 % (13.2-15.2) 10/27/20 05:59 Plt Count 174 K/mm3 (140-440) 10/27/20 05:59 Lymph % (Auto) 20.5 % (13.4-35.0) 10/26/20 05:08 Barry % (Auto) 10.4 % (0.0-7.3) H 10/26/20 05:08 Eos % (Auto) 2.5 % (0.0-4.3) 10/26/20 05:08 Baso % (Auto) 0.8 % (0.0-1.8) 10/26/20 05:08 Lymph # (Auto) 1.8 K/mm3 (1.2-5.4) 10/26/20 05:08 Barry # (Auto) 0.9 K/mm3 (0.0-0.8) H 10/26/20 05:08 Eos # (Auto) 0.2 K/mm3 (0.0-0.4) 10/26/20 05:08 Baso # (Auto) 0.1 K/mm3 (0.0-0.1) 10/26/20 05:08 Add Manual Diff Complete 10/26/20 05:08 Total Counted 100 10/26/20 05:08 Seg Neutrophils % 65.8 % (40.0-70.0) 10/26/20 05:08 Seg Neuts % (Manual) 65.0 % (40.0-70.0) 10/26/20 05:08 Lymphocytes % (Manual) 21.0 % (13.4-35.0) 10/26/20 05:08 Reactive Lymphs % (Man) 1.0 % 10/26/20 05:08 Monocytes % (Manual) 11.0 % (0.0-7.3) H 10/26/20 05:08 Eosinophils % (Manual) 2.0 % (0.0-4.3) 10/26/20 05:08 Nucleated RBC % Not Reportable 10/26/20 05:08 Seg Neutrophils # 5.9 K/mm3 (1.8-7.7) 10/26/20 05:08 Seg Neutrophils # Man 5.8 K/mm3 (1.8-7.7) 10/26/20 05:08 Band Neutrophils # 0.0 K/mm3 10/26/20 05:08 Lymphocytes # (Manual) 1.9 K/mm3 (1.2-5.4) 10/26/20 05:08 Abs React Lymphs (Man) 0.1 K/mm3 10/26/20 05:08 Monocytes # (Manual) 1.0 K/mm3 (0.0-0.8) H 10/26/20 05:08 Eosinophils # (Manual) 0.2 K/mm3 (0.0-0.4) 10/26/20 05:08 Basophils # (Manual) 0.0 K/mm3 (0.0-0.1) 10/26/20 05:08 Metamyelocytes # 0.0 K/mm3 10/26/20 05:08 Myelocytes # 0.0 K/mm3 10/26/20 05:08 Promyelocytes # 0.0 K/mm3 10/26/20 05:08 Blast Cells # 0.0 K/mm3 10/26/20 05:08 WBC Morphology Not Reportable 10/26/20 05:08 Hypersegmented Neuts Not Reportable 10/26/20 05:08 Hyposegmented Neuts Not Reportable 10/26/20 05:08 Hypogranular Neuts Not Reportable 10/26/20 05:08 Smudge Cells Not Reportable 10/26/20 05:08 Toxic Granulation Not Reportable 10/26/20 05:08 Toxic Vacuolation Not Reportable 10/26/20 05:08 Dohle Bodies Not Reportable 10/26/20 05:08 Pelger-Huet Anomaly Not Reportable 10/26/20 05:08 Layne Rods Not Reportable 10/26/20 05:08 Platelet Estimate Consistent w auto 10/26/20 05:08 Clumped Platelets Not Reportable 10/26/20 05:08 Plt Clumps, EDTA Not Reportable 10/26/20 05:08 Large Platelets Not Reportable 10/26/20 05:08 Giant Platelets Not Reportable 10/26/20 05:08 Platelet Satelliting Not Reportable 10/26/20 05:08 Plt Morphology Comment Not Reportable 10/26/20 05:08 RBC Morphology Normal 10/26/20 05:08 Dimorphic RBCs Not Reportable 10/26/20 05:08 Polychromasia Not Reportable 10/26/20 05:08 Hypochromasia Not Reportable 10/26/20 05:08 Poikilocytosis Not Reportable 10/26/20 05:08 Anisocytosis Not Reportable 10/26/20 05:08 Microcytosis Not Reportable 10/26/20 05:08 Macrocytosis Not Reportable 10/26/20 05:08 Spherocytes Not Reportable 10/26/20 05:08 Pappenheimer Bodies Not Reportable 10/26/20 05:08 Sickle Cells Not Reportable 10/26/20 05:08 Target Cells Not Reportable 10/26/20 05:08 Tear Drop Cells Not Reportable 10/26/20 05:08 Ovalocytes Not Reportable 10/26/20 05:08 Helmet Cells Not Reportable 10/26/20 05:08 Frag[place] Bodies Not Reportable 10/26/20 05:08 Gurley Rings Not Reportable 10/26/20 05:08 Rives Cells Not Reportable 10/26/20 05:08 Bite Cells Not Reportable 10/26/20 05:08 Crenated Cell Not Reportable 10/26/20 05:08 Elliptocytes Not Reportable 10/26/20 05:08 Acanthocytes (Spur) Not Reportable 10/26/20 05:08 Rouleaux Not Reportable 10/26/20 05:08 Hemoglobin C Crystals Not Reportable 10/26/20 05:08 Schistocytes Not Reportable 10/26/20 05:08 Malaria parasites Not Reportable 10/26/20 05:08 Judah Bodies Not Reportable 10/26/20 05:08 Hem Pathologist Commnt No 10/26/20 05:08 PT 16.7 Sec. (12.2-14.9) H 10/24/20 13:45 INR 1.29 (0.87-1.13) H 10/24/20 13:45 APTT 31.2 Sec. (24.2-36.6) 10/24/20 13:45 Sodium 146 mmol/L (137-145) H 10/27/20 05:59 Potassium 3.3 mmol/L (3.6-5.0) L 10/27/20 05:59 Chloride 109.2 mmol/L (98-107) H 10/27/20 05:59 Carbon Dioxide 27 mmol/L (22-30) 10/27/20 05:59 Anion Gap 13 mmol/L 10/27/20 05:59 BUN 17 mg/dL (7-17) 10/27/20 05:59 Creatinine 0.9 mg/dL (0.6-1.2) 10/27/20 05:59 Estimated GFR > 60 ml/min 10/27/20 05:59 BUN/Creatinine Ratio 19 % 10/27/20 05:59 Glucose 145 mg/dL (65-100) H 10/27/20 05:59 POC Glucose 147 mg/dL (70-105) H 10/26/20 15:56 Calcium 10.5 mg/dL (8.4-10.2) H 10/27/20 05:59 Total Bilirubin 0.70 mg/dL (0.1-1.2) 10/23/20 11:38 AST 19 units/L (5-40) 10/23/20 11:38 ALT 17 units/L (7-56) 10/23/20 11:38 Alkaline Phosphatase 92 units/L (35-129) 10/23/20 11:38 Ammonia 27.0 umol/L (25-60) 10/23/20 11:38 Total Creatine Kinase 166 units/L (30-135) H 10/23/20 11:38 Troponin T 0.135 ng/mL (0.00-0.029) H* 10/23/20 18:46 Total Protein 7.1 g/dL (6.3-8.2) 10/23/20 11:38 Albumin 3.7 g/dL (3.9-5) L 10/23/20 11:38 Albumin/Globulin Ratio 1.1 % 10/23/20 11:38 Triglycerides 155 mg/dL (2-149) H 10/23/20 11:38 Cholesterol 121 mg/dL (50-199) 10/23/20 11:38 LDL Cholesterol Direct 45 mg/dL (50-130) L 10/23/20 11:38 HDL Cholesterol 46 mg/dL (40-59) 10/23/20 11:38 Cholesterol/HDL Ratio 2.63 % 10/23/20 11:38 Vitamin B12 > 2000 pg/mL (211-911) H 10/26/20 14:24 TSH 1.590 mlU/mL (0.270-4.200) 10/26/20 14:24 Urine Color Yellow (Yellow) 10/23/20 Unknown Urine Turbidity Turbid (Clear) 10/23/20 Unknown Urine pH 5.0 (5.0-7.0) 10/23/20 Unknown Ur Specific [place] 1.013 (1.003-1.030) 10/23/20 Unknown Urine Protein 100 mg/dl mg/dL (Negative) 10/23/20 Unknown Urine Glucose (UA) Neg mg/dL (Negative) 10/23/20 Unknown Urine Ketones Neg mg/dL (Negative) 10/23/20 Unknown Urine Blood Mod (Negative) 10/23/20 Unknown Urine Nitrite Neg (Negative) 10/23/20 Unknown Urine Bilirubin Neg (Negative) 10/23/20 Unknown Urine Urobilinogen < 2.0 mg/dL (<2.0) 10/23/20 Unknown Ur Leukocyte Esterase Mod (Negative) 10/23/20 Unknown Urine WBC (Auto) 5.0 /HPF (0.0-6.0) 10/23/20 Unknown Urine RBC (Auto) 1.0 /HPF (0.0-6.0) 10/23/20 Unknown Urine Bacteria (Auto) 1+ /HPF (Negative) 10/23/20 Unknown Microbiology: Microbiology 10/24/20 13:45 Peripheral/Venous Blood Culture - Preliminary NO GROWTH AFTER 48 HOURS 10/24/20 13:41 Peripheral/Venous Blood Culture - Preliminary NO GROWTH AFTER 48 HOURS Neff/IV: Voiding Method External Female Catheter Active Medications - Current Medications Current Medications: Generic Name Dose Route Start Last Admin Trade Name Freq PRN Reason Stop Dose Admin Acetaminophen 650 mg 10/23/20 14:00 Acetaminophen 325 Mg Tab PO Q4H PRN Pain MILD(1-3)/Fever >100.5/JEAN BAPTISTE Albuterol 2.5 mg 10/23/20 16:00 Albuterol 2.5 Mg/3 Ml Nebu IH Q4HRT PRN Shortness Of Breath Apixaban 2.5 mg 10/24/20 14:00 10/26/20 21:00 Apixaban 2.5 Mg Tab PO 2.5 mg Q12HR SHEBA Administration Protocol Atorvastatin Calcium 40 mg 10/24/20 22:00 10/26/20 21:00 Atorvastatin 40 Mg Tab PO 40 mg QHS SHEBA Administration Donepezil HCl 10 mg 10/24/20 10:00 10/26/20 09:20 Donepezil 10 Mg Tab PO 10 mg QDAY SHEBA Administration Escitalopram Oxalate 10 mg 10/24/20 11:00 10/26/20 09:19 Escitalopram 10 Mg Tab PO 10 mg DAILY SHEBA Administration Hydromorphone HCl 0.5 mg 10/23/20 14:00 Hydromorphone 1 Mg/1 Ml Inj IV Q8H PRN Pain , Severe (7-10) Sodium Chloride 1,000 mls @ 75 mls/hr 10/24/20 09:45 10/25/20 22:11 Nacl 0.9% 1000 Ml IV 75 mls/hr DIRECT SHEBA Administration Memantine 5 mg 10/26/20 14:00 10/26/20 14:19 Memantine 5 Mg Tab PO 5 mg QDAY SHEBA Administration Miscellaneous Medication 1 each 10/24/20 17:00 10/26/20 17:39 Foltanx PO 1 each BIDDIAB SHEBA Administration Ondansetron HCl 4 mg 10/23/20 14:00 Ondansetron 4 Mg/2 Ml Inj IV Q8H PRN Nausea And Vomiting Oxycodone/Acetaminophen 1 tab 10/23/20 14:00 10/26/20 20:58 Oxycodone /Acetaminophen 5-325mg Tab PO 1 tab Q6H PRN Administration Pain, Moderate (4-6) Sodium Chloride 10 ml 10/23/20 22:00 10/26/20 21:00 Sodium Chloride 0.9% 10 Ml Flush Syringe IV 10 ml BID SHEBA Administration Sodium Chloride 10 ml 10/23/20 14:00 Sodium Chloride 0.9% 10 Ml Flush Syringe IV PRN PRN LINE FLUSH Nutrition/Malnutrition Assess - Dietary Evaluation Nutrition/Malnutrition Findings: Nutrition Notes Start: 10/24/20 12:56 Freq: Status: Active Protocol: Document 10/24/20 12:56 (Rec: 10/24/20 12:58 [email or web address]) Nutrition Notes Need for Assessment generated from: loader demolder,MST Initial or Follow up Brief Note Current Diagnosis Acute Kidney Injury Other Pertinent Diagnosis UTI, encephalopathy Current Diet Pureed Subjective/Other Information RN screen for MST and skin risk. Jeevan score 14 with vaginal ulceration. Pt NPO at time of visit. SAW HANDLE ASSEMBLER cleared pt for pureed with thins. Nutrition Intervention Follow-Up By: 10/27/20 Additional Comments FU for intakes
[2020-10-27] MEDS ORDERED: REGADENOSON 0.4 MG/5 ML INJ IV ONE (08:57)
[2020-10-27] MEDS ORDERED: LORazepam 2 MG/ML VIAL IV NR (09:25)
--- NOTE | 2020-10-27 11:35 | Progress Note ---
Assessment and Plan Assessment and Plan - Patient Problems # Metabolic encephalopathy and or confusion -she presented with episode of acute confusion resolved as per record ? -possible seizure -Toximetabolic and or drug effect can not be excluded -Ct brain is unremarkable -initial Creatinie was 2.6 --- today 1 - neuro check, -seizure precaution, - aspiration precautions, -fall precautions, -IV fluid resuscitation therapy, -echocardiogram, -cardiology team consulted in ED. -MRI brain am --with ativan before the study -EEG pending -check for orthostatic changes not done # Possible underlying advanced dementia -she is on Aricept -Ct brain is unremarkable -Add namenda 5 mg bid -Hold symmetril -B21 ,TSH wnl. # pt. is on Eliquis -Etiology not clear -review old record -media monitor -MRI brain -Echo is noted #GLENN (acute kidney injury) -Monitor urine output every shift, - IV fluid resuscitation therapy, BMP, repeat BMP in a.m. to monitor serum creatinine as well as GFR. # Volume depletion -IV fluid resuscitation therapy, supportive care. # Urinary tract infection -Urinalysis, empiric IV antibiotic therapy, supportive care. # Elevated troponin -Serial cardiac enzymes, -EKG, - remote telemetry monitoring, - cardiology team consulted, -echocardiogram Ef#45-50% NSR # DVT prophylaxis -SCD to bilateral lower extremities while in bed # Advance care planning - disease education conducted, care plan discussed, diagnosis discussed, prognosis discussed, patient is full code. Patient family acknowledges understanding agree with care plan, +30 minutes PLAN 1-cardiac monitoring 2-check for orthostatic changes 3- Hydration 4- EEG is pending 5- MRI Brain wo qd - will need ativan before MRI 6- Hold symmetril 7-trial of namenda 5 mg bid 8- ? Eliquis 9- ST,PT 10- Add seroquel 25 mg qhs to help with agitaion and will stop lexapro DVT precaution SCD will follow Subjective Date of service: 10/27/20 Principal diagnosis: confusion , agitation,? syncopy Interval history: she is alert interactive restless brestrained follow simple command knows her name disoriented to place and date knows her date Objective - Vital Sign Vital Signs - 12hr 10/27/20 10/27/20 03:15 07:34 Temperature 97.9 F 98.3 F Pulse Rate 112 H 104 H Respiratory 20 18 Rate Blood Pressure 166/70 160/69 O2 Sat by Pulse 96 97 Oximetry - General Apperance Constitutional: comfortable - EENT EENT: PERRL, mucous membranes moist - Respiratory Respiratory: chest non-tender, lungs clear, rhonchi - Cardiovascular Cardiovascular: regular rate, normal S1, normal S2 Extremities: no peripheral edema bilat, no clubbing, cyanosis - Gastrointestinal Gastrointestinal: normoactive bowel sounds - Integumentary Integumentary: normal - Neurologic Cranial nerve examination: intact Speech examination: intact, other (mumble speech is not clear) Detailed motor examination: grossly full strength in - Laboratory Findings CBC and BMP: 10/27/20 05:59 10/27/20 05:59 Abnormal Lab Findings: Abnormal Labs 10/23/20 10/23/20 10/23/20 11:38 11:38 11:38 WBC 12.4 H MCHC 35 H Lymph % (Auto) 7.4 L [place] % (Auto) Lymph # (Auto) 0.9 L [place] # (Auto) Seg Neutrophils % 87.2 H Monocytes % (Manual) Seg Neutrophils # 10.8 H Monocytes # (Manual) PT INR Sodium 134 L Potassium Chloride 94.1 L BUN 50 H Creatinine 2.6 H Glucose 125 H POC Glucose Calcium 11.5 H Total Creatine Kinase 166 H Troponin T 0.151 H* Albumin 3.7 L Triglycerides 155 H LDL Cholesterol Direct 45 L Vitamin B12 10/23/20 10/24/20 10/24/20 18:46 13:45 13:45 WBC MCHC 35 H Lymph % (Auto) [place] % (Auto) Lymph # (Auto) [place] # (Auto) Seg Neutrophils % Monocytes % (Manual) Seg Neutrophils # Monocytes # (Manual) PT 16.7 H INR 1.29 H Sodium Potassium Chloride BUN Creatinine Glucose POC Glucose Calcium Total Creatine Kinase Troponin T 0.135 H* Albumin Triglycerides LDL Cholesterol Direct Vitamin B12 10/24/20 10/25/20 10/25/20 13:45 04:28 04:28 WBC MCHC 35 H Lymph % (Auto) [place] % (Auto) 11.2 H Lymph # (Auto) [place] # (Auto) 0.9 H Seg Neutrophils % Monocytes % (Manual) Seg Neutrophils # Monocytes # (Manual) PT INR Sodium Potassium Chloride BUN 34 H Creatinine 2.0 H 1.4 H Glucose POC Glucose Calcium 10.6 H Total Creatine Kinase Troponin T Albumin Triglycerides LDL Cholesterol Direct Vitamin B12 10/26/20 10/26/20 10/26/20 05:08 05:08 14:24 WBC MCHC Lymph % (Auto) [place] % (Auto) 10.4 H Lymph # (Auto) [place] # (Auto) 0.9 H Seg Neutrophils % Monocytes % (Manual) 11.0 H Seg Neutrophils # Monocytes # (Manual) 1.0 H PT INR Sodium Potassium 3.4 L Chloride BUN 22 H Creatinine Glucose 146 H POC Glucose Calcium 10.3 H Total Creatine Kinase Troponin T Albumin Triglycerides LDL Cholesterol Direct Vitamin B12 > 2000 H 10/26/20 10/27/20 10/27/20 15:56 05:59 05:59 WBC MCHC 35 H Lymph % (Auto) [place] % (Auto) Lymph # (Auto) [place] # (Auto) Seg Neutrophils % Monocytes % (Manual) Seg Neutrophils # Monocytes # (Manual) PT INR Sodium 146 H Potassium 3.3 L Chloride 109.2 H BUN Creatinine Glucose 145 H POC Glucose 147 H Calcium 10.5 H Total Creatine Kinase Troponin T Albumin Triglycerides LDL Cholesterol Direct Vitamin B12
--- NOTE | 2020-10-27 12:11 | Progress Note ---
Assessment and Plan - Patient Problems (1) Elevated troponin Current Visit: Yes Status: Acute Plan to address problem: Patient admitted with acute dehydration and prerenal azotemia. Troponin elevation in this clinical setting is nonspecific. We had planned a myocardial perfusion study, for further assessment of the patient's abnormal baseline ECG, representing an old inferior infarct pattern. However patient is not a candidate for myocardial perfusion scanning due to poor mental status, confusion and dementia. We will treat empirically and manage conservatively from a cardiac standpoint. Subjective Date of service: 10/27/20 Principal diagnosis: confusion , agitation,? syncopy Interval history: Patient is confused, on two-point restraints, and therefore is not able to consent or able to cooperate with requirements for a Lexiscan stress test with myocardial perfusion imaging. The test is therefore canceled, and the patient will be treated conservatively from a cardiac standpoint. Objective Vital Signs Temp Pulse Resp BP Pulse Ox 10/27/20 07:34 98.3 F 104 H 18 160/69 97 10/27/20 03:15 97.9 F 112 H 20 166/70 96 10/26/20 22:51 97.9 F 97 H 20 151/67 99 10/26/20 22:00 18 10/26/20 19:12 98.4 F 124 H 20 179/77 97 10/26/20 15:47 97.2 F L 93 H 18 144/74 97 - Physical Examination General: No Apparent Distress, Other (Appears confused) HEENT: Positive: Normocephaly Neck: Positive: trachea midline. Negative: JVD/HJR Cardiac: Positive: Reg Rate and Rhythm Lungs: Positive: clear to auscultation Neuro: Positive: Grossly Intact, Resting Tremor Abdomen: Positive: Soft, Active Bowel Sounds Skin: Positive: Clear Extremities: Absent: edema - Labs and Meds CBC 10/27/20 Range/Units 05:59 WBC 8.9 (4.5-11.0) K/mm3 RBC 4.08 (3.65-5.03) M/mm3 Hgb 12.5 (10.1-14.3) gm/dl Hct 36.1 (30.3-42.9) % Plt Count 174 (140-440) K/mm3 Comprehensive Metabolic Panel 10/27/20 Range/Units 05:59 Sodium 146 H (137-145) mmol/L Potassium 3.3 L (3.6-5.0) mmol/L Chloride 109.2 H (98-107) mmol/L Carbon Dioxide 27 (22-30) mmol/L BUN 17 (7-17) mg/dL Creatinine 0.9 (0.6-1.2) mg/dL Glucose 145 H (65-100) mg/dL Calcium 10.5 H (8.4-10.2) mg/dL
[2020-10-27 13:14] LABS: Total Cells Counted 100
[2020-10-27 13:15] LABS: Platelet Estimate Consistent w Auto; RBC Morphology Normal
[2020-10-27] MEDS: HYDROmorphone 1 MG/1 ML INJ IV PRN (13:57)
[2020-10-27] MEDS: METOPROLOL TARTRATE 25 MG TAB PO SCH ×2 (14:01→22:41)
[2020-10-27] MEDS: APIXABAN 2.5 MG TAB PO SCH ×2 (14:02→22:41)
[2020-10-27] MEDS: MEMANTINE 5 MG TAB PO SCH (14:02)
[2020-10-27] MEDS: amLODIPine 5 MG TAB PO SCH (14:02)
[2020-10-27] MEDS: DONEPEZIL 10 MG TAB PO SCH (14:02)
[2020-10-27] MEDS: FOLTANX PO SCH ×2 (14:03→17:48)
[2020-10-27] MEDS ORDERED: QUEtiapine 25 MG TAB PO SCH (22:00)
[2020-10-27] MEDS: oxyCODONE /ACETAMINOPHEN 5-325MG TAB PO PRN (22:40)
[2020-10-28 05:23] LABS: Basophils # (Auto) 0.1 K/mm3 (0.0-0.1); Basophils % (Auto) 0.8 % (0.0-1.8); Eosinophils # (Auto) 0.3 K/mm3 (0.0-0.4); Eosinophils % (Auto) 2.9 % (0.0-4.3); Hematocrit 35.2 % (30.3-42.9); Hemoglobin 12.1 gm/dl (10.1-14.3); Lymphocytes # (Auto) 1.5 K/mm3 (1.2-5.4); Lymphocytes % (Auto) 17.1 % (13.4-35.0); Mean Corpuscular HGB Conc 35 % (30-34); Mean Corpuscular Volume 91 fl (79-97); Monocytes % (Auto) 11.1 % (0.0-7.3); Platelet Count 159 K/mm3 (140-440); Red Blood Count 3.87 M/mm3 (3.65-5.03); Red Cell Distribution Width 14.8 % (13.2-15.2)
[2020-10-28 05:45] LABS: Calcium 11.3 mg/dL (8.4-10.2)
[2020-10-28] MEDS: ESCITALOPRAM 10 MG TAB PO SCH (07:59)
[2020-10-28] MEDS: HYDROmorphone 1 MG/1 ML INJ IV PRN (08:50)
[2020-10-28] MEDS: FOLTANX PO SCH ×2 (09:21→16:19)
[2020-10-28] MEDS: DONEPEZIL 10 MG TAB PO SCH (09:21)
[2020-10-28] MEDS: APIXABAN 2.5 MG TAB PO SCH ×2 (09:22→22:00)
[2020-10-28] MEDS: METOPROLOL TARTRATE 25 MG TAB PO SCH ×2 (09:22→22:02)
[2020-10-28] MEDS: amLODIPine 5 MG TAB PO SCH (09:22)
[2020-10-28] MEDS: MEMANTINE 5 MG TAB PO SCH ×2 (09:23→22:29)
--- NOTE | 2020-10-28 09:59 | Progress Note ---
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 as an outpatient Conservative cardiac management Subjective Date of service: 10/28/20 Principal diagnosis: confusion Interval history: Alert with confusion Objective Vital Signs Temp Pulse Resp BP BP Pulse Ox 10/28/20 07:18 97.2 F L 58 L 19 148/51 97 10/28/20 04:28 97.6 F 57 L 18 142/64 96 10/27/20 22:55 98.0 F 76 18 144/63 96 10/27/20 22:41 67 149/62 10/27/20 22:00 60 20 10/27/20 20:02 98.9 F 65 20 149/62 94 10/27/20 15:22 97.4 F L 77 18 131/57 97 10/27/20 12:00 98.4 F 102 H 20 155/72 97 10/27/20 10:00 104 H - Physical Examination General: No Apparent Distress, Other (Confused) HEENT: Positive: Normocephaly Neck: Positive: trachea midline Cardiac: Positive: Reg Rate and Rhythm Lungs: Positive: Decreased Breath Sounds Extremities: Absent: edema - Labs and Meds CBC 10/28/20 Range/Units 04:50 WBC 8.9 (4.5-11.0) K/mm3 RBC 3.87 (3.65-5.03) M/mm3 Hgb 12.1 (10.1-14.3) gm/dl Hct 35.2 (30.3-42.9) % Plt Count 159 (140-440) K/mm3 Lymph # (Auto) 1.5 (1.2-5.4) K/mm3 [place] # (Auto) 1.0 H (0.0-0.8) K/mm3 Eos # (Auto) 0.3 (0.0-0.4) K/mm3 Baso # (Auto) 0.1 (0.0-0.1) K/mm3 Comprehensive Metabolic Panel 10/28/20 Range/Units 04:50 Sodium 146 H (137-145) mmol/L Potassium 4.0 D (3.6-5.0) mmol/L Chloride 109.3 H (98-107) mmol/L Carbon Dioxide 30 (22-30) mmol/L BUN 19 H (7-17) mg/dL Creatinine 1.1 (0.6-1.2) mg/dL Glucose 131 H (65-100) mg/dL Calcium 11.3 H (8.4-10.2) mg/dL
--- NOTE | 2020-10-28 10:36 | Magnetic Resonance Report ---
MRI BRAIN 10/28/2020 INDICATION / CLINICAL INFORMATION: change mentation ,she is on Eliquis,syncopy. TECHNIQUE: Multiplanar, multisequence MR images of the brain were obtained. COMPARISON: CT brain 10/23/2020 FINDINGS: BRAIN / INTRACRANIAL CONTENTS: Unenhanced MR images of the brain were obtained. There is some increased signal on the diffusion-weighted images located in the left centrum semiovale . This is at the upper margin of a larger chronic subcortical ischemic change seen in the left basal ganglia. There is no definite correlating decreased signal on the ADC images, and therefore this sign al is consistent with T2 shine through, perhaps from subacute ischemic injury. The larger area of enc ephalomalacia in the left basal ganglia does not show any diffusion signal abnormality. This may be a n indication that a small area of additional ischemic change has occurred, although now in a more sub acute stage. Ventricles and sulci are prominent in size, consistent with diffuse cerebral atrophy. Moderate chroni c microangiopathic white matter T2 weighted signal changes are present. There are no abnormal extra-axial fluid collections. EXTRACRANIAL: Unremarkable CRANIOCERVICAL JUNCTION: No significant abnormality. VASCULAR FLOW-VOIDS: No significant abnormality. IMPRESSION: Left-sided subcortical ischemic changes, as detailed above. There appears to be both chronic and sub acute left-sided ischemic changes, with no evidence of hemorrhage. Signer Name: Herber Niño MD Signed: 10/28/2020 10:32 AM Workstation Name: [id number]
--- NOTE | 2020-10-28 12:46 | Progress Note ---
Assessment and Plan Assessment and Plan - Patient Problems # Metabolic encephalopathy and or confusion -she presented with episode of acute confusion resolved as per record ? -possible seizure -Toximetabolic and or drug effect can not be excluded -Ct brain is unremarkable -initial Creatinie was 2.6 --- today 1 -echocardiogram showed EF#45-50% -cardiology team consulted in ED. -MRI brain remarkable for subacute left centrum semioval CVA with old BG infarct left side -EEG remarkable for mild diffuse slowing -check for orthostatic changes not done # Possible underlying advanced dementia -she is on Aricept -Ct brain is unremarkable -Add namenda 5 mg bid -Hold symmetril -B21 ,TSH wnl. -will advance seroquel to 25 mg bid hold if sedated # pt. is on Eliquis -According to family she is with hx of PE and DVT in 07/06 and placed on Eliquis at [facility] # Hx of Subdual hematoma -S/P evacuation 07/06 at [facility] #GLENN (acute kidney injury) -Monitor urine output every shift, - IV fluid resuscitation therapy, BMP, repeat BMP in a.m. to monitor serum creatinine as well as GFR. # Volume depletion -IV fluid resuscitation therapy, supportive care. # Urinary tract infection -Urinalysis, empiric IV antibiotic therapy, supportive care. # Elevated troponin -Serial cardiac enzymes, -EKG, - remote telemetry monitoring, - cardiology team consulted, -echocardiogram Ef#45-50% NSR # DVT prophylaxis -SCD to bilateral lower extremities while in bed # Advance care planning - disease education conducted, care plan discussed, diagnosis discussed, prognosis discussed, patient is full code. Patient family acknowledges understanding agree with care plan, +30 minutes PLAN 1-namenda 5 mg bid 2- Seroquel 25 mg bid 3-maintain on eliquis for now and follwo up with PCP and cardiology , neurology 4- PT/ST evaluate 5-will sign off Subjective Date of service: 10/28/20 Principal diagnosis: confusion Interval history: she is lethargic today after MRI was given dauldid MRI is remarkable for smal left BG infarct on top of old left BG infarct I had chance to talk to her daughter pt. is with hx of subdural hematoma required surgical intervention at [facility] in she is with hx of PE and multiple DVT was placed on Eliquis on she is with advanced dementia and at time with agitation according to her nurse today seroquel helped slightly last night and they still had to restrain her at 1 am . Objective - Vital Sign Vital Signs - 12hr 10/28/20 10/28/20 10/28/20 04:28 07:18 11:45 Temperature 97.6 F 97.2 F L 97.2 F L Pulse Rate 57 L 58 L 55 L Respiratory 18 19 19 Rate Blood Pressure 142/64 148/51 147/61 O2 Sat by Pulse 96 97 94 Oximetry - General Apperance Constitutional: comfortable, other (sleepy after MRI ) - EENT EENT: PERRL, mucous membranes moist - Respiratory Respiratory: lungs clear, rhonchi - Cardiovascular Cardiovascular: regular rate, normal S1, normal S2 Extremities: no peripheral edema bilat, no clubbing, cyanosis - Gastrointestinal Gastrointestinal: normoactive bowel sounds - Integumentary Integumentary: normal - Neurologic Cranial nerve examination: PERRL, EOMI Speech examination: other (mumble) - Laboratory Findings CBC and BMP: 10/28/20 04:50 10/28/20 04:50 Abnormal Lab Findings: Abnormal Labs 10/23/20 10/23/20 10/23/20 11:38 11:38 11:38 WBC 12.4 H MCHC 35 H Lymph % (Auto) 7.4 L [place] % (Auto) Lymph # (Auto) 0.9 L [place] # (Auto) Seg Neutrophils % 87.2 H Seg Neuts % (Manual) Lymphocytes % (Manual) Monocytes % (Manual) Seg Neutrophils # 10.8 H Lymphocytes # (Manual) Monocytes # (Manual) PT INR Sodium 134 L Potassium Chloride 94.1 L BUN 50 H Creatinine 2.6 H Glucose 125 H POC Glucose Calcium 11.5 H Total Creatine Kinase 166 H Troponin T 0.151 H* Albumin 3.7 L Triglycerides 155 H LDL Cholesterol Direct 45 L Vitamin B12 10/23/20 10/24/20 10/24/20 18:46 13:45 13:45 WBC MCHC 35 H Lymph % (Auto) [place] % (Auto) Lymph # (Auto) [place] # (Auto) Seg Neutrophils % Seg Neuts % (Manual) Lymphocytes % (Manual) Monocytes % (Manual) Seg Neutrophils # Lymphocytes # (Manual) Monocytes # (Manual) PT 16.7 H INR 1.29 H Sodium Potassium Chloride BUN Creatinine Glucose POC Glucose Calcium Total Creatine Kinase Troponin T 0.135 H* Albumin Triglycerides LDL Cholesterol Direct Vitamin B12 10/24/20 10/25/20 10/25/20 13:45 04:28 04:28 WBC MCHC 35 H Lymph % (Auto) [place] % (Auto) 11.2 H Lymph # (Auto) [place] # (Auto) 0.9 H Seg Neutrophils % Seg Neuts % (Manual) Lymphocytes % (Manual) Monocytes % (Manual) Seg Neutrophils # Lymphocytes # (Manual) Monocytes # (Manual) PT INR Sodium Potassium Chloride BUN 34 H Creatinine 2.0 H 1.4 H Glucose POC Glucose Calcium 10.6 H Total Creatine Kinase Troponin T Albumin Triglycerides LDL Cholesterol Direct Vitamin B12 10/26/20 10/26/20 10/26/20 05:08 05:08 14:24 WBC MCHC Lymph % (Auto) [place] % (Auto) 10.4 H Lymph # (Auto) [place] # (Auto) 0.9 H Seg Neutrophils % Seg Neuts % (Manual) Lymphocytes % (Manual) Monocytes % (Manual) 11.0 H Seg Neutrophils # Lymphocytes # (Manual) Monocytes # (Manual) 1.0 H PT INR Sodium Potassium 3.4 L Ch[place] BUN 22 H Creatinine Glucose 146 H POC Glucose Calcium 10.3 H Total Creatine Kinase Troponin T Albumin Triglycerides LDL Cholesterol Direct Vitamin B12 > 2000 H 10/26/20 10/27/20 10/27/20 15:56 05:59 05:59 WBC MCHC 35 H Lymph % (Auto) [place] % (Auto) Lymph # (Auto) [place] # (Auto) Seg Neutrophils % Seg Neuts % (Manual) 77.0 H Lymphocytes % (Manual) 4.0 L Monocytes % (Manual) 16.0 H Seg Neutrophils # Lymphocytes # (Manual) 0.4 L Monocytes # (Manual) 1.4 H PT INR Sodium 146 H Potassium 3.3 L [place] 109.2 H BUN Creatinine Glucose 145 H POC Glucose 147 H Calcium 10.5 H Total Creatine Kinase Troponin T Albumin Triglycerides LDL Cholesterol Direct Vitamin B12 10/28/20 10/28/20 04:50 04:50 WBC MCHC 35 H Lymph % (Auto) [place] % (Auto) 11.1 H Lymph # (Auto) [place] # (Auto) 1.0 H Seg Neutrophils % Seg Neuts % (Manual) Lymphocytes % (Manual) Monocytes % (Manual) Seg Neutrophils # Lymphocytes # (Manual) Monocytes # (Manual) PT INR Sodium 146 H Potassium Chloride 109.3 H BUN 19 H Creatinine Glucose 131 H POC Glucose Calcium 11.3 H Total Creatine Kinase Troponin T Albumin Triglycerides LDL Cholesterol Direct Vitamin B12
[2020-10-28] MEDS: SODIUM CHLORIDE 0.9% 1000 ML 1,000 ML IV SCH (13:15)
--- NOTE | 2020-10-28 13:57 | Progress Note ---
Assessment and Plan Assessment and plan: 75 YO Female Assisted Living Facility Resident at [facility] with DM, HTN, COPD, Vascular Dementia, HLD, Depression presents to ED for evaluation. Patient has diminished cognition and unable to provide detailed history. The patient was found to have leukocytosis, SIRS, acute kidney injury and toxic metabolic encephalopathy. The patient was also noted to have elevated troponin. Metabolic encephalopathy. Etiology unknown, possibly secondary to dehydration Fluids, encourage p.o. intake. 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 History Interval history: 10/24/2020. Follow-up echocardiogram and cardiology consultation. Continue to trend cardiac isoenzymes. Continue IV fluid hydration and follow-up BMP. Check renal ultrasound and consider nephrology consultation. We will hold antihypertensive medications for now. Patient actually normotensive. Also, patient's blood sugar at 125 we will hold on Lantus for now be introduced as needed. Patient with underlying dementia and may be at baseline with regards to her mental status. Continue antibiotics empirically until blood cultures resulted. Urinalysis is negative 10/25/2020. Creatinine has improved to 1.4. Nephrology following. Continue IV fluid hydration. Await cardiology decision regarding ischemic evaluation. Continue supportive care 10/26/2020. Echocardiogram shows normal left ventricular size with left ventricular ejection fraction 46 to 50%. Equivocal serum troponin level elevation secondary to underlying renal insufficiency. Resting EKG is abnormal consistent with probable old myocardial infarction. Cardiology recommends stress test in a.m. Neurology evaluation in a.m. for encephalopathy. We will stop IV fluids. Acute kidney injury appears to have resolved with creatinine normal. PT evaluation. 10/27/2020. Patient with metabolic encephalopathy likely related to acute kidney injury/ARF. Creatinine has returned to normal at 0.9. CT of brain was unremarkable. Follow-up MRI brain and EEG per neurology recommendation. Patient likely has underlying advanced dementia. Namenda 5 mg twice daily added by neurology. Stress test per cardiology. 10/28/2020 patient seen and examined, seems confused, MRI with subacute infarct. Patient seems dehydrated, needs fluids, has told the nurse to restart the fluids because they were not running at the time. Hospitalist Physical - Physical exam Narrative exam: General appearance: no acute distress, well-nourished EENT: PERRL, EOM intact, hearing intact, clear oral mucosa Neck: Present: supple, normal ROM Respiratory: bilateral CTA, negative: rales, rhonchi, wheezing Cardiovascular: Regular rate/rhythm, Normal S1 & S2. No gallop, rub Extremities: no ischemia, No edema, normal temperature, normal color, Full ROM Abdominal: soft, no tenderness, non-distended, normal bowel sounds Integumentary: Present: clear, warm, dry no wounds, no erythema noted Psychiatric: Flat affect, no suicidal ideation or homicidal ideation, patient is confused Neurologic: CNII-XII intact, moves all extremities, no sensory or motor abnormalities - Constitutional Vitals: Temp Pulse Resp BP Pulse Ox 97.2 F L 55 L 19 147/61 94 10/28/20 11:45 10/28/20 11:45 10/28/20 11:45 10/28/20 11:45 10/28/20 11:45 HEART Score - HEART Score Troponin: Troponin T 0.135 ng/mL (0.00-0.029) H* 10/23/20 18:46 Results - Labs CBC & Chem 7: 10/28/20 04:50 10/28/20 04:50 Labs: Laboratory Last Values WBC 8.9 K/mm3 (4.5-11.0) 10/28/20 04:50 RBC 3.87 M/mm3 (3.65-5.03) 10/28/20 04:50 Hgb 12.1 gm/dl (10.1-14.3) 10/28/20 04:50 Hct 35.2 % (30.3-42.9) 10/28/20 04:50 MCV 91 fl (79-97) 10/28/20 04:50 MCH 31 pg (28-32) 10/28/20 04:50 MCHC 35 % (30-34) H 10/28/20 04:50 RDW 14.8 % (13.2-15.2) 10/28/20 04:50 Plt Count 159 K/mm3 (140-440) 10/28/20 04:50 Lymph % (Auto) 17.1 % (13.4-35.0) 10/28/20 04:50 [place] % (Auto) 11.1 % (0.0-7.3) H 10/28/20 04:50 Eos % (Auto) 2.9 % (0.0-4.3) 10/28/20 04:50 Baso % (Auto) 0.8 % (0.0-1.8) 10/28/20 04:50 Lymph # (Auto) 1.5 K/mm3 (1.2-5.4) 10/28/20 04:50 Robeson # (Auto) 1.0 K/mm3 (0.0-0.8) H 10/28/20 04:50 Eos # (Auto) 0.3 K/mm3 (0.0-0.4) 10/28/20 04:50 Baso # (Auto) 0.1 K/mm3 (0.0-0.1) 10/28/20 04:50 Add Manual Diff Complete 10/27/20 05:59 Total Counted 100 10/27/20 05:59 Seg Neutrophils % 68.1 % (40.0-70.0) 10/28/20 04:50 Seg Neuts % (Manual) 77.0 % (40.0-70.0) H 10/27/20 05:59 Lymphocytes % (Manual) 4.0 % (13.4-35.0) L 10/27/20 05:59 Reactive Lymphs % (Man) 1.0 % 10/26/20 05:08 Monocytes % (Manual) 16.0 % (0.0-7.3) H 10/27/20 05:59 Eosinophils % (Manual) 2.0 % (0.0-4.3) 10/27/20 05:59 Metamyelocytes % 1.0 % 10/27/20 05:59 Nucleated RBC % Not Reportable 10/27/20 05:59 Seg Neutrophils # 6.1 K/mm3 (1.8-7.7) 10/28/20 04:50 Seg Neutrophils # Man 6.9 K/mm3 (1.8-7.7) 10/27/20 05:59 Band Neutrophils # 0.0 K/mm3 10/27/20 05:59 Lymphocytes # (Manual) 0.4 K/mm3 (1.2-5.4) L 10/27/20 05:59 Abs React Lymphs (Man) 0.0 K/mm3 10/27/20 05:59 Monocytes # (Manual) 1.4 K/mm3 (0.0-0.8) H 10/27/20 05:59 Eosinophils # (Manual) 0.2 K/mm3 (0.0-0.4) 10/27/20 05:59 Basophils # (Manual) 0.0 K/mm3 (0.0-0.1) 10/27/20 05:59 Metamyelocytes # 0.1 K/mm3 10/27/20 05:59 Myelocytes # 0.0 K/mm3 10/27/20 05:59 Promyelocytes # 0.0 K/mm3 10/27/20 05:59 Blast Cells # 0.0 K/mm3 10/27/20 05:59 WBC Morphology Not Reportable 10/27/20 05:59 Hypersegmented Neuts Not Reportable 10/27/20 05:59 Hyposegmented Neuts Not Reportable 10/27/20 05:59 Hypogranular Neuts Not Reportable 10/27/20 05:59 Smudge Cells Not Reportable 10/27/20 05:59 Toxic Granulation Not Reportable 10/27/20 05:59 Toxic Vacuolation Not Reportable 10/27/20 05:59 Dohle Bodies Not Reportable 10/27/20 05:59 Pelger-Huet Anomaly Not Reportable 10/27/20 05:59 Layne Rods Not Reportable 10/27/20 05:59 Platelet Estimate Consistent w auto 10/27/20 05:59 Clumped Platelets Not Reportable 10/27/20 05:59 Plt Clumps, EDTA Not Reportable 10/27/20 05:59 Large Platelets Not Reportable 10/27/20 05:59 Giant Platelets Not Reportable 10/27/20 05:59 Platelet Satelliting Not Reportable 10/27/20 05:59 Plt Morphology Comment Not Reportable 10/27/20 05:59 RBC Morphology Normal 10/27/20 05:59 Dimorphic RBCs Not Reportable 10/27/20 05:59 Polychromasia Not Reportable 10/27/20 05:59 Hypochromasia Not Reportable 10/27/20 05:59 Poikilocytosis Not Reportable 10/27/20 05:59 Anisocytosis Not Reportable 10/27/20 05:59 Microcytosis Not Reportable 10/27/20 05:59 Macrocytosis Not Reportable 10/27/20 05:59 Spherocytes Not Reportable 10/27/20 05:59 Pappenheimer Bodies Not Reportable 10/27/20 05:59 Sickle Cells Not Reportable 10/27/20 05:59 Target Cells Not Reportable 10/27/20 05:59 Tear Drop Cells Not Reportable 10/27/20 05:59 Ovalocytes Not Reportable 10/27/20 05:59 Helmet Cells Not Reportable 10/27/20 05:59 Fragoso-[place] Bodies Not Reportable 10/27/20 05:59 [place] Rings Not Reportable 10/27/20 05:59 Phelps Cells Not Reportable 10/27/20 05:59 Bite Cells Not Reportable 10/27/20 05:59 Crenated Cell Not Reportable 10/27/20 05:59 Elliptocytes Not Reportable 10/27/20 05:59 Acanthocytes (Spur) Not Reportable 10/27/20 05:59 Rouleaux Not Reportable 10/27/20 05:59 Hemoglobin C Crystals Not Reportable 10/27/20 05:59 Schistocytes Not Reportable 10/27/20 05:59 Malaria parasites Not Reportable 10/27/20 05:59 Judah Bodies Not Reportable 10/27/20 05:59 Hem Pathologist Commnt No 10/27/20 05:59 PT 16.7 Sec. (12.2-14.9) H 10/24/20 13:45 INR 1.29 (0.87-1.13) H 10/24/20 13:45 APTT 31.2 Sec. (24.2-36.6) 10/24/20 13:45 Sodium 146 mmol/L (137-145) H 10/28/20 04:50 Potassium 4.0 mmol/L (3.6-5.0) D 10/28/20 04:50 Chloride 109.3 mmol/L (98-107) H 10/28/20 04:50 Carbon Dioxide 30 mmol/L (22-30) 10/28/20 04:50 Anion Gap 11 mmol/L 10/28/20 04:50 BUN 19 mg/dL (7-17) H 10/28/20 04:50 Creatinine 1.1 mg/dL (0.6-1.2) 10/28/20 04:50 Estimated GFR 48 ml/min 10/28/20 04:50 BUN/Creatinine Ratio 17 % 10/28/20 04:50 Glucose 131 mg/dL (65-100) H 10/28/20 04:50 POC Glucose 147 mg/dL (70-105) H 10/26/20 15:56 Calcium 11.3 mg/dL (8.4-10.2) H 10/28/20 04:50 Total Bilirubin 0.70 mg/dL (0.1-1.2) 10/23/20 11:38 AST 19 units/L (5-40) 10/23/20 11:38 ALT 17 units/L (7-56) 10/23/20 11:38 Alkaline Phosphatase 92 units/L (35-129) 10/23/20 11:38 Ammonia 27.0 umol/L (25-60) 10/23/20 11:38 Total Creatine Kinase 166 units/L (30-135) H 10/23/20 11:38 Troponin T 0.135 ng/mL (0.00-0.029) H* 10/23/20 18:46 Total Protein 7.1 g/dL (6.3-8.2) 10/23/20 11:38 Albumin 3.7 g/dL (3.9-5) L 10/23/20 11:38 Albumin/Globulin Ratio 1.1 % 10/23/20 11:38 Triglycerides 155 mg/dL (2-149) H 10/23/20 11:38 Cholesterol 121 mg/dL (50-199) 10/23/20 11:38 LDL Cholesterol Direct 45 mg/dL (50-130) L 10/23/20 11:38 HDL Cholesterol 46 mg/dL (40-59) 10/23/20 11:38 Cholesterol/HDL Ratio 2.63 % 10/23/20 11:38 Vitamin B12 > 2000 pg/mL (211-911) H 10/26/20 14:24 TSH 1.590 mlU/mL (0.270-4.200) 10/26/20 14:24 Urine Color Yellow (Yellow) 10/23/20 Unknown Urine Turbidity Turbid (Clear) 10/23/20 Unknown Urine pH 5.0 (5.0-7.0) 10/23/20 Unknown Ur Specific [place] 1.013 (1.003-1.030) 10/23/20 Unknown Urine Protein 100 mg/dl mg/dL (Negative) 10/23/20 Unknown Urine Glucose (UA) Neg mg/dL (Negative) 10/23/20 Unknown Urine Ketones Neg mg/dL (Negative) 10/23/20 Unknown Urine Blood Mod (Negative) 10/23/20 Unknown Urine Nitrite Neg (Negative) 10/23/20 Unknown Urine Bilirubin Neg (Negative) 10/23/20 Unknown Urine Urobilinogen < 2.0 mg/dL (<2.0) 10/23/20 Unknown Ur Leukocyte Esterase Mod (Negative) 10/23/20 Unknown Urine WBC (Auto) 5.0 /HPF (0.0-6.0) 10/23/20 Unknown Urine RBC (Auto) 1.0 /HPF (0.0-6.0) 10/23/20 Unknown Urine Bacteria (Auto) 1+ /HPF (Negative) 10/23/20 Unknown Microbiology: Microbiology 10/24/20 13:45 Peripheral/Venous Blood Culture - Preliminary NO GROWTH AFTER 72 HOURS 10/24/20 13:41 Peripheral/Venous Blood Culture - Preliminary NO GROWTH AFTER 72 HOURS Neff/IV: Voiding Method External Female Catheter Active Medications - Current Medications Current Medications: Generic Name Dose Route Start Last Admin Trade Name Freq PRN Reason Stop Dose Admin Acetaminophen 650 mg 10/23/20 14:00 Acetaminophen 325 Mg Tab PO Q4H PRN Pain MILD(1-3)/Fever >100.5/JEAN BAPTISTE Albuterol 2.5 mg 10/23/20 16:00 Albuterol 2.5 Mg/3 Ml Nebu IH Q4HRT PRN Shortness Of Breath Amlodipine Besylate 5 mg 10/27/20 13:00 10/28/20 09:22 Amlodipine 5 Mg Tab PO 5 mg QDAY SHEBA Administration Apixaban 2.5 mg 10/24/20 14:00 07/13/21 09:22 Apixaban 2.5 Mg Tab PO 2.5 mg Q12HR SHEBA Administration Protocol Atorvastatin Calcium 40 mg 10/24/20 22:00 10/27/20 22:41 Atorvastatin 40 Mg Tab PO 40 mg QHS SHEBA Administration Hydromorphone HCl 0.5 mg 10/23/20 14:00 10/28/20 08:50 Hydromorphone 1 Mg/1 Ml Inj IV 0.5 mg Q8H PRN Administration Pain , Severe (7-10) Sodium Chloride 1,000 mls @ 75 mls/hr 10/24/20 09:45 10/28/20 13:15 Nacl 0.9% 1000 Ml IV 75 mls/hr DIRECT SHEBA Administration Isosorbide Mononitrate 30 mg 10/27/20 13:00 10/28/20 09:22 Isosorbide Mononitrate Er 30 Mg Tab PO 30 mg QDAY SHEBA Administration Memantine 5 mg 10/28/20 22:00 Memantine 5 Mg Tab PO Q12HR SHEBA Metoprolol Tartrate 25 mg 10/27/20 13:00 10/28/20 09:22 Metoprolol Tartrate 25 Mg Tab PO 25 mg BID SHEBA Administration Miscellaneous Medication 1 each 10/24/20 17:00 10/28/20 09:21 Foltanx PO 1 each BIDDIAB SHEBA Administration Ondansetron HCl 4 mg 10/23/20 14:00 Ondansetron 4 Mg/2 Ml Inj IV Q8H PRN Nausea And Vomiting Oxycodone/Acetaminophen 1 tab 10/23/20 14:00 10/27/20 22:40 Oxycodone /Acetaminophen 5-325mg Tab PO 1 tab Q6H PRN Administration Pain, Moderate (4-6) Quetiapine Fumarate 25 mg 10/28/20 22:00 Quetiapine 25 Mg Tab PO BID SHEBA Sodium Chloride 10 ml 10/23/20 22:00 10/28/20 09:23 Sodium Chloride 0.9% 10 Ml Flush Syringe IV 10 ml BID SHEBA Administration Sodium Chloride 10 ml 10/23/20 14:00 Sodium Chloride 0.9% 10 Ml Flush Syringe IV PRN PRN LINE FLUSH Nutrition/Malnutrition Assess - Dietary Evaluation Nutrition/Malnutrition Findings: Nutrition Notes Start: 10/24/20 12:56 Freq: Status: Active Protocol: Document 10/27/20 12:44 (Rec: 10/27/20 12:46 [id number]) Nutrition Notes Initial or Follow up Brief Note Current Diagnosis Acute Kidney Injury Other Pertinent Diagnosis UTI, encephalopathy Current Diet Pureed Subjective/Other Information FU for intakes. Pt NPO for stress test this AM. Pt is confused. RN unsure of intakes . Nutrition Intervention Add Supplement/Snack (indicate name/kcal Ensure Enlive BID /protein ) Provides kCal: 700 Provides Protein (gm) 40 Follow-Up By: 10/28/20 Additional Comments FU for intakes and ONS tolerance
[2020-10-28] MEDS: oxyCODONE /ACETAMINOPHEN 5-325MG TAB PO PRN (22:03)
[2020-10-28] MEDS: QUEtiapine 25 MG TAB PO SCH (22:03)
[2020-10-29] MEDS: SODIUM CHLORIDE 0.9% 1000 ML 1,000 ML IV SCH (03:03)
[2020-10-29 05:57] LABS: Calcium 9.8 mg/dL (8.4-10.2)
[2020-10-29 08:05] VITALS: BP 137/53
[2020-10-29] MEDS ORDERED: POTASSIUM CHLORIDE 20 MEQ PACKET PO NR (09:00)
[2020-10-29] MEDS ORDERED: NACL 0.45%/KCL 20 MEQ 20 MEQ/1,000 ML BAG IV SCH (09:00)
--- NOTE | 2020-10-29 09:42 | Progress Note ---
Assessment and Plan Nonspecific Elevated troponin Acute renal failure -resolved Dehydration Dementia Diabetes Hypertension Prior PE/DVT on Eliquis as an outpatient Will continue a conservative cardiac management Subjective Date of service: 10/29/20 Principal diagnosis: confusion Interval history: Patient is alert, sitting up eating breakfast. No cardiac complaints. Objective Vital Signs Temp Pulse Resp BP Pulse Ox 10/29/20 07:39 98.7 F 53 L 18 137/53 96 10/29/20 03:16 98.2 F 50 L 18 125/41 98 10/28/20 23:19 98.3 F 49 L 18 132/47 97 10/28/20 22:02 72 128/50 10/28/20 22:00 59 L 20 10/28/20 19:06 97.9 F 57 L 18 128/50 95 10/28/20 17:28 138/53 10/28/20 16:31 98.0 F 58 L 19 75/52 95 10/28/20 11:45 97.2 F L 55 L 19 147/61 94 10/28/20 10:00 55 L 18 - Physical Examination General: No Apparent Distress HEENT: Positive: PERRL Neck: Positive: trachea midline Cardiac: Positive: Reg Rate and Rhythm Lungs: Positive: Decreased Breath Sounds Neuro: Positive: Grossly Intact Extremities: Absent: edema - Labs and Meds Comprehensive Metabolic Panel 10/29/20 Range/Units 04:30 Sodium 147 H (137-145) mmol/L Potassium 3.5 L (3.6-5.0) mmol/L Chloride 112.1 H (98-107) mmol/L Carbon Dioxide 27 (22-30) mmol/L BUN 22 H (7-17) mg/dL Creatinine 1.2 (0.6-1.2) mg/dL Glucose 156 H (65-100) mg/dL Calcium 9.8 (8.4-10.2) mg/dL
[2020-10-29] MEDS: APIXABAN 2.5 MG TAB PO SCH (09:45)
[2020-10-29] MEDS: FOLTANX PO SCH (09:45)
[2020-10-29] MEDS: amLODIPine 5 MG TAB PO SCH (09:45)
[2020-10-29] MEDS: QUEtiapine 25 MG TAB PO SCH (09:51)
[2020-10-29] MEDS: MEMANTINE 5 MG TAB PO SCH (12:23)
[2020-10-29] MEDS: METOPROLOL TARTRATE 25 MG TAB PO SCH (12:23)
--- NOTE | 2020-10-29 13:18 | Fluoroscopy Report ---
Modified barium swallow Indication: R/O ASPIRATION Technique: Swallowing was evaluated in the lateral position under direct fluoroscopy. Findings: The patient was evaluated with puree, thin, nectar, and honey consistencies. There was silent aspiration with thin liquid consistency. There was also deep flash penetration with nectar consistency with no cough reflex elicited. Puree and honey consistencies were well tolerated. Impression: Abnormal exam as above. Fluoroscopic time: 1 minute Number of fluoroscopic images: 1 Signer Name: Bethel Ruano MD Signed: 10/29/2020 1:13 PM Workstation Name: [id number]
--- NOTE | 2020-10-29 13:26 | Discharge Summary ---
Providers - Providers Date of Admission: 10/24/20 11:20 Date of discharge: 10/29/20 Attending physician: JOANA TURK MD 10/23/20 13:12 Consult to Cardiology [CONS] Routine Consulting Provider: JONO BRYAN Reason For Exam: elevated troponin 10/24/20 08:04 Speech Therapy Evaluation and Treat [CONS] Routine Reason For Exam: Swallowing evaluation 10/26/20 11:01 Physical Therapy Evaluation and Treat [CONS] Routine Comment: Reason For Exam: deconditioning 10/27/20 08:00 Consult to Physician [CONS] Routine Comment: Consulting Provider: LYNNETTE BOWLING Physician Instructions: Reason For Exam: Encephalopathy 10/27/20 10:24 Occupational Therapy Evaluate and Treat [CONS] Routine Comment: ot eval and rx Reason For Exam: syncope Primary care physician: BECKIE ANTHONY Hospitalization Condition: Good Hospital course: Assessment and plan: 75 YO Female Assisted Living Facility Resident at [facility] with DM, HTN, COPD, Vascular Dementia, HLD, Depression presents to ED for evaluation. Patient has diminished cognition and unable to provide detailed history. The patient was found to have leukocytosis, SIRS, acute kidney injury and toxic metabolic encephalopathy. The patient was also noted to have elevated troponin. Metabolic encephalopathy. Etiology unknown, possibly secondary to dehydration Fluids, encourage p.o. intake. Seems to be resolving Acute kidney injury secondary to vasomotor nephropathy Resolving with fluids Hypercalcemia Resume fluids Hypernatremia Resume fluids NSTEMI, possibly type II Cardiology consulted Attempted stress test, however patient was not amenable to cooperation, conservative management for now History of PE and DVT in June 2019 Continue Eliquis History of subdermal hematoma History of status post evacuation June 2020 Urinary tract infection Patient completed Rocephin treatment possible underlying dementia Continue Aricept Add Namenda per neurology DVT prophylaxis: Eliquis CODE STATUS: Full Disposition: Continue treatment for dehydration, monitor calcium in sodium levels. 10/24/2020. Follow-up echocardiogram and cardiology consultation. Continue to trend cardiac isoenzymes. Continue IV fluid hydration and follow-up BMP. Check renal ultrasound and consider nephrology consultation. We will hold antihypertensive medications for now. Patient actually normotensive. Also, patient's blood sugar at 125 we will hold on Lantus for now be introduced as needed. Patient with underlying dementia and may be at baseline with regards to her mental status. Continue antibiotics empirically until blood cultures resulted. Urinalysis is negative 10/25/2020. Creatinine has improved to 1.4. Nephrology following. Continue IV fluid hydration. Await cardiology decision regarding ischemic evaluation. Continue supportive care 10/26/2020. Echocardiogram shows normal left ventricular size with left ventricular ejection fraction 46 to 50%. Equivocal serum troponin level elevation secondary to underlying renal insufficiency. Resting EKG is abnormal consistent with probable old myocardial infarction. Cardiology recommends stress test in a.m. Neurology evaluation in a.m. for encephalopathy. We will stop IV fluids. Acute kidney injury appears to have resolved with creatinine normal. PT evaluation. 10/27/2020. Patient with metabolic encephalopathy likely related to acute kidney injury/ARF. Creatinine has returned to normal at 0.9. CT of brain was unremarkable. Follow-up MRI brain and EEG per neurology recommendation. Patient likely has underlying advanced dementia. Namenda 5 mg twice daily added by neurology. Stress test per cardiology. 10/28/2020 patient seen and examined, seems confused, MRI with subacute infarct. Patient seems dehydrated, needs fluids, has told the nurse to restart the fluids because they were not running at the time. 10/29/2020: Patient seen and examined, less confused, patient states that she is eating. Swallow study came back with silent aspiration. Informed the daughter pertaining to this finding, patient is to be careful with eating. Disposition: [id number] HOME UNDER [facility] Final Discharge Diagnosis (Prints w/discharge instructions): Metabolic encephalopathy acute kidney injury secondary to vasomotor nephropathy. Hypercalcemia. Hypernatremia. NSTEMI type II. History of PE and DVT. History of subdermal hematoma. Urinary tract infection Time spent for discharge: 40 minutes Core Measure Documentation - Palliative Care Palliative Care/ Comfort Measures: Not Applicable - Core Measures Any of the following diagnoses?: none Exam - Physical Exam Narrative exam: General appearance: no acute distress, well-nourished EENT: PERRL, EOM intact, hearing intact, clear oral mucosa Neck: Present: supple, normal ROM Respiratory: bilateral CTA, negative: rales, rhonchi, wheezing Cardiovascular: Regular rate/rhythm, Normal S1 & S2. No gallop, rub Extremities: no ischemia, No edema, normal temperature, normal color Abdominal: soft, no tenderness, non-distended, normal bowel sounds Integumentary: Present: clear, warm, dry no wounds, no erythema noted Psychiatric: Flat affect, no suicidal ideation or homicidal ideation, patient without confusion Neurologic: CNII-XII intact, weakness in lower extremities bilaterally, chronic, no sensory or motor abnormalities - Constitutional Vitals: Temp Pulse Resp BP Pulse Ox 98.7 F 53 L 18 137/53 96 10/29/20 07:39 10/29/20 07:39 10/29/20 07:39 10/29/20 07:39 10/29/20 07:39 Plan Activity: no restrictions Weight Bearing Status: Weight Bear as Tolerated Diet: low salt Follow up with: BECKIE ANTHONY MD [Primary Care Provider] - 3-5 Days Prescriptions: AtorvaSTATin [Lipitor] 40 mg PO QHS #90 amLODIPine 5 mg PO QDAY #90 tablet donepeziL [Aricept] 10 mg PO QDAY #90 Apixaban [Eliquis] 2.5 mg PO Q12HR #180 tablet ISOSORBIDE MONOnitrate [Imdur ER] 30 mg PO QDAY #90 tablet Escitalopram [Lexapro] 10 mg PO QDAY #30 Metoprolol [Lopressor TAB] 25 mg PO BID #180 tablet Memantine 5 mg PO Q12HR #90 tablet QUEtiapine [SEROquel] 25 mg PO BID #90 tablet
== END 2020-10-29 14:29 | disposition home health service (06) | DRG 91 ==
LOC: ED 09:49 → 3A 11:20 → INTOOBSV 13:30 → 3A 13:30 → 4A 17:56 → OBSVTOIN 10-24 11:20
PROVIDERS: ADMIT Internal Medicine; ATTEND Family Medicine
DX: G92 Toxic encephalopathy (principal); N17.0 Acute kidney failure with tubular necrosis; I21.A1 Myocardial infarction type 2; R65.10 Systemic inflammatory response syndrome (SIRS) of non-infectious origin without acute organ dysfunction; N39.0 Urinary tract infection, site not specified; E87.0 Hyperosmolality and hypernatremia; E86.9 Volume depletion, unspecified; J44.9 Chronic obstructive pulmonary disease, unspecified; E86.0 Dehydration; E78.5 Hyperlipidemia, unspecified; G47.00 Insomnia, unspecified; F32.9 Major depressive disorder, single episode, unspecified; Z88.8 Allergy status to other drugs, medicaments and biological substances; F01.50 Vascular dementia, unspecified severity, without behavioral disturbance, psychotic disturbance, mood disturbance, and anxiety; Z86.73 Personal history of transient ischemic attack (TIA), and cerebral infarction without residual deficits; M13.0 Polyarthritis, unspecified; I12.9 Hypertensive chronic kidney disease with stage 1 through stage 4 chronic kidney disease, or unspecified chronic kidney disease; E11.22 Type 2 diabetes mellitus with diabetic chronic kidney disease; N18.9 Chronic kidney disease, unspecified; E83.52 Hypercalcemia; Z86.711 Personal history of pulmonary embolism; Z86.718 Personal history of other venous thrombosis and embolism; Z79.01 Long term (current) use of anticoagulants; Z79.899 Other long term (current) drug therapy
CPT/HCPCS: 36415; 70450; 70551; 71045; 74230; 76770; 80048; 80053; 80061; 81001; 82140; 82550; 82565; 82607; 82962; 84443; 84484; 85007; 85025; 85027; 85610; 85730; 87040; 93005; 93306; 95819; G0378; A9270-GY; J0696; J1170; J1630; J2060; J3246; J7030

== ENCOUNTER 2021-06-11 15:21 | Emergency (ER) | payer MEDICARE ==
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
[2021-06-11 18:26] LABS: Basophils # (Auto) 0.1 K/mm3 (0.0-0.1); Basophils % (Auto) 0.9 % (0.0-1.8); Eosinophils # (Auto) 0.3 K/mm3 (0.0-0.4); Eosinophils % (Auto) 4.8 % (0.0-4.3); Hematocrit 37.2 % (30.3-42.9); Hemoglobin 12.9 gm/dl (10.1-14.3); Lymphocytes # (Auto) 2.2 K/mm3 (1.2-5.4); Mean Corpuscular HGB Conc 35 % (30-34); Mean Corpuscular Volume 89 fl (79-97); Monocytes # (Auto) 0.6 K/mm3 (0.0-0.8); Monocytes % (Auto) 9.2 % (0.0-7.3); Platelet Count 131 K/mm3 (140-440); Red Blood Count 4.19 M/mm3 (3.65-5.03); Red Cell Distribution Width 13.6 % (13.2-15.2)
[2021-06-11 18:37] LABS: BUN/Creatinine Ratio 19; Blood Urea Nitrogen 17 mg/dL (7-17); Calcium 9.7 mg/dL (8.4-10.2); Hemolysis Index 18
--- NOTE | 2021-06-12 08:04 | Emergency Department Report ---
Blank Doc - Documentation Documentation: Patient is resting this morning. She has no complaints. She is awaiting maribel kfast. She states that she still cannot get things off of her mind. We are awaiting psychiatric disposition.
[2021-06-12] MEDS: INSULIN REGULAR, HUMAN 100 UNITS/1 ML SUB-Q SCH ×4 (08:15→22:00)
--- NOTE | 2021-06-12 11:41 | Consultation ---
History of Present Illness - Reason for Consult Consult date: 06/12/21 Reason for consult: SI - History of Present Psychiatric Illness The patient was seen today. She presented with SI with a plan to choke herself. During my evaluation, she reports feeling depressed that has "gotten really bad." She says "I got it all worked out how I will end my life." She then says "I will choke myself." She says she is depressed mostly about medical conditions. She denies hallucinations. The patient says she is from "[facility]." She says she doesn't have any family but a granddaughter. 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 Employment Status: Disabled Access to guns/weapons: Denies Education: History of Abuse: Denies Legal History: Denies REVIEW OF SYSTEMS Constitutional: Negative for weight loss ENT: Negative for stridor Respiratory: Negative for cough or hemoptysis All other systems reviewed and are negative MENTAL STATUS EXAMINATION General Appearance and Behavior: Age appropriate, good hygiene, wearing appropriate clothes.cooperative Cooperation: cooperative Psychomotor Behavior: Psychomotor normal Mood: depressed Affect and affective range: congruent with stated mood Thought Process: illogical Thought Content: SI Speech: Normal volume, Regular rate and rhythm, Suicidal Ideation: yes Homicidal Ideation: Denies Hallucinations: Denies Delusions: none elicited Impulse Control: impaired Insight and Judgment: Limited Memory: limited Attention: Attentive Orientation: alert and oriented Assessment and Plan (1) Major Depressive Disorder Treatment Plan 1013 Restart Lexapro 10mg po daily Start Trazodone 50mg po qhs Medical: Per primary Sitter: Defer to primary Disposition: Recommend acute psychiatric inpatient treatment Will follow. Thanks Case staffed with Dr. Garcia Medications and Allergies Allergies Allergy/AdvReac Type Severity Reaction Status Date / Time cephalexin [From Keflex] Allergy Unknown Verified 06/12/21 08:25 clopidogrel [From Plavix] Allergy Unknown Verified 06/12/21 08:25 Home Medications Medication Instructions Recorded Confirmed Last Taken Type Loperamide [Imodium] 2 mg PO PRN PRN MDD 6 caps in 24h 10/23/20 06/12/21 Unknown History (12mg) diazePAM [Diazepam] 10 mg PO QHS 10/23/20 06/12/21 Unknown History Apixaban [Eliquis] 2.5 mg PO Q12HR #180 tablet 10/29/20 06/12/21 Unknown Rx AtorvaSTATin [Lipitor] 40 mg PO QHS #90 10/29/20 06/12/21 Unknown Rx Escitalopram [Lexapro] 10 mg PO QDAY #30 10/29/20 06/12/21 Unknown Rx Metoprolol [Lopressor TAB] 25 mg PO BID #180 tablet 10/29/20 06/12/21 Unknown Rx QUEtiapine [SEROquel] 25 mg PO BID #90 tablet 10/29/20 06/12/21 Unknown Rx amLODIPine 5 mg PO QDAY #90 tablet 10/29/20 06/12/21 Unknown Rx donepeziL [Aricept] 10 mg PO QDAY #90 10/29/20 06/12/21 Unknown Rx Acetaminophen [Aphen] 650 mg PO Q6H PRN 06/12/21 06/12/21 Unknown History Calcium Carbonate/Vitamin D3 1 tab PO QDAY 06/12/21 06/12/21 Unknown History [Calcium 500 + Vit D3 400 Tab] Clobetasol Propionate/Emoll 1 applic TP BID 06/12/21 06/12/21 Unknown History [Clobetasol Emollnt 0.05% Foam] Duloxetine HCl [Cymbalta] 60 mg PO QDAY 06/12/21 06/12/21 Unknown History Fluticasone/Vilanterol [Breo 1 puff IH QDAY 06/12/21 06/12/21 Unknown History Ellipta 100-25 Mcg INH] Lactobacillus Combo No.10 1 cap PO BID 06/12/21 06/12/21 Unknown History [Probiotic] Loratadine [Allergy Relief] 10 mg PO QDAY 06/12/21 06/12/21 Unknown History Losartan [Cozaar] 25 mg PO QDAY 06/12/21 06/12/21 Unknown History Nystatin Oint [Mycostatin Oint] 1 applicatio TP TID 06/12/21 06/12/21 Unknown History Nystatin [Nystop] 1 applic TP BID 06/12/21 06/12/21 Unknown History Hernando-3 Fatty Acids/Fish Oil [Fish 2,000 mg PO BID 06/12/21 06/12/21 Unknown History Oil 1,000 mg Capsule] Ondansetron [Zofran Odt] 4 mg PO Q8HR PRN 06/12/21 06/12/21 Unknown History Prazosin [Minipress] 1 mg PO QHS 06/12/21 06/12/21 Unknown History Sildenafil [Revatio] 10 mg PO TID 06/12/21 06/12/21 Unknown History Zinc Oxide/Cod Liver Oil [Desitin 1 applic TP BID 06/12/21 06/12/21 Unknown History 40% Paste] guaiFENesin/DEXTROMETHORPHAN 10 ml PO Q4H PRN MDD 6 doses (60mL) 06/12/21 06/12/21 Unknown History [Guaifenesin-Dm 100-10 mg/5 ml] Active Meds: Active Medications Insulin Human Regular (Insulin Regular, Human 100 Units/1 Ml) 0 units SUB-Q [facility]; Protocol Last Admin: 06/12/21 11:28 Dose: 2 units Mental Status Exam - Vital signs Last Vital Signs Temp 97.2 F L 06/11/21 16:37 Pulse 67 06/12/21 08:41 Resp 16 06/12/21 08:41 BP 137/56 06/12/21 08:41 Pulse Ox 96 06/12/21 08:41 Results Result Diagrams: 06/11/21 18:01 06/11/21 18:01 Abnormal lab results 06/11/21 06/11/21 06/11/21 Range/Units 17:56 18:01 18:01 MCHC 35 H (30-34) % Plt Count 131 L (140-440) K/mm3 Harris % (Auto) 9.2 H (0.0-7.3) % Eos % (Auto) 4.8 H (0.0-4.3) % Glucose 201 H (65-100) mg/dL POC Glucose (70-105) mg/dL Salicylates < 0.3 L (2.8-20.0) mg/dL Acetaminophen (10.0-30.0) ug/mL 06/11/21 06/12/21 06/12/21 Range/Units 18:01 08:14 11:22 MCHC (30-34) % Plt Count (140-440) K/mm3 Harris % (Auto) (0.0-7.3) % Eos % (Auto) (0.0-4.3) % Glucose (65-100) mg/dL POC Glucose 146 H 166 H (70-105) mg/dL Salicylates (2.8-20.0) mg/dL Acetaminophen 5.0 L (10.0-30.0) ug/mL All other labs normal.
[2021-06-12] MEDS ORDERED: ESCITALOPRAM 10 MG/10 ML ORAL LIQD PO SCH (12:00)
[2021-06-12] MEDS: ESCITALOPRAM 10 MG TAB PO SCH (13:23)
[2021-06-12] MEDS: DONEPEZIL 10 MG TAB PO SCH (13:23)
[2021-06-12 13:28] LABS: Amphetamine Screen,Urine PRESUMPTIVE NEGATIVE; Benzodiazepines Screen,Urine PRESUMPTIVE POSITIVE; Cannabinoid Screen,Urine PRESUMPTIVE NEGATIVE; Cocaine Screen,Urine PRESUMPTIVE NEGATIVE; Methadone Screen,Urine PRESUMPTIVE NEGATIVE; Opiate Screen,Urine PRESUMPTIVE NEGATIVE
[2021-06-12 13:45] LABS: Bilirubin,Urine NEG (Negative); Blood,Urine SM (Negative); Color,Urine Straw (Yellow); Mucus,Urine FEW /HPF; Protein,Urine <15 mg/dL mg/dL (Negative); Urobilinogen,Urine < 2.0 mg/dL (<2.0)
[2021-06-12] MEDS: traZODone 50 MG TAB PO SCH (22:00)
[2021-06-13] MEDS: INSULIN REGULAR, HUMAN 100 UNITS/1 ML SUB-Q SCH ×4 (07:25→22:02)
[2021-06-13] MEDS: ESCITALOPRAM 10 MG TAB PO SCH (09:35)
[2021-06-13] MEDS: DONEPEZIL 10 MG TAB PO SCH (09:35)
--- NOTE | 2021-06-13 11:16 | Event Note ---
Date: 06/13/21 vss , no distress , no new events over night , awaiting inpatient psych transfer
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
[2021-06-13] MEDS: traZODone 50 MG TAB PO SCH (22:03)
[2021-06-14] MEDS: INSULIN REGULAR, HUMAN 100 UNITS/1 ML SUB-Q SCH ×4 (08:32→22:15)
--- NOTE | 2021-06-14 08:52 | Progress Note ---
Subjective - Reason for Consult Consult date: 06/14/21 Reason for consult: SI - Chief Complaint Chief complaint: The patient was seen today. She is sitting up eating. She says her appetite is not that good. The patient says she slept okay. She still endorses suicidal thoughts. She denies homicidal thoughts. She says "I've let that go. But I don't want that woman nowhere around me." REVIEW OF SYSTEMS Constitutional: Negative for weight loss ENT: Negative for stridor Respiratory: Negative for cough or hemoptysis All other systems reviewed and are negative MENTAL STATUS EXAMINATION General Appearance and Behavior: Age appropriate, good hygiene, wearing appropriate clothes.cooperative Cooperation: cooperative Psychomotor Behavior: Psychomotor normal Mood: depressed Affect and affective range: congruent with stated mood Thought Process: illogical Thought Content: SI/HI Speech: Normal volume, Regular rate and rhythm, Suicidal Ideation: yes Homicidal Ideation: yes Hallucinations: Denies Delusions: none elicited Impulse Control: impaired Insight and Judgment: Limited Memory: limited Attention: Attentive Orientation: alert and oriented Assessment and Plan (1) Major Depressive Disorder Treatment Plan 1013 Increase Lexapro 20mg po daily Trazodone 50mg po qhs Start Remeron 7.5mg po qhs to promote rest and stimulate appetite Medical: Per primary Sitter: Defer to primary Disposition: Recommend acute psychiatric inpatient treatment Will follow. Thanks Case staffed with Dr. Garcia Mental Status Exam - Vital signs Last Vital Signs Temp 98.6 F 06/13/21 19:00 Pulse 78 06/13/21 19:00 Resp 18 06/13/21 19:00 BP 138/88 06/13/21 19:00 Pulse Ox 99 06/13/21 19:00
[2021-06-14] MEDS ORDERED: ESCITALOPRAM 10 MG TAB PO SCH (09:00)
--- NOTE | 2021-06-14 10:27 | Emergency Department Report ---
Blank Doc - Documentation Documentation: Patient had no events throughout the course of the night. She is resting comf ortably. She has been eating. We are still awaiting psychiatric disposition and placement.
[2021-06-14] MEDS: DONEPEZIL 10 MG TAB PO SCH (11:00)
[2021-06-14] MEDS: traZODone 50 MG TAB PO SCH (21:57)
[2021-06-14] MEDS ORDERED: MIRTAZAPINE 15 MG TAB PO SCH (22:00)
[2021-06-15] MEDS: INSULIN REGULAR, HUMAN 100 UNITS/1 ML SUB-Q SCH ×2 (08:16→11:32)
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
--- NOTE | 2021-06-15 11:27 | Event Note ---
Date: 06/15/21 The patient was evaluated in the emergency department for symptoms described in the history of present illness. He/she was evaluated in the context of the global COVID-19 pandemic, which necessitated consideration that the patient might be at risk for infection with the virus that causes COVID-19. Institutional protocols and algorithms that pertain to the evaluation of patients at risk for COVID-19 are in a state of rapid change based on information released by regulatory bodies including the CDC and federal and state organizations. These policies and algorithms were followed during the patient's care in the emergency department. Please note that these policies, procedures and recommendations changed on a rapid basis. Laboratory studies, vital signs, nursing documentation, ER documentation, and psychiatric documentation are reviewed and appreciated. Nursing team reports no acute events this morning or concerns. The patient is awake and not in any acute distress The patient was deemed medically suitable for psychiatric disposition and placement during her initial ER evaluation. The patient continues to remain medically suitable for psychiatric placement and disposition. The psychiatric team have recommended discontinuation of 1013. She may therefore be discharged back to her [facility]. Defer to psychiatric team to provide appropriate prescriptions. Vital Signs 06/11/21 06/11/21 06/11/21 15:26 16:16 16:31 Temperature Pulse Rate 73 Respiratory 16 Rate Blood Pressure 108/57 Blood Pressure 191/76 [Left] O2 Sat by Pulse 95 95 96 Oximetry 06/11/21 06/11/21 06/11/21 16:37 16:45 17:01 Temperature 97.2 F L Pulse Rate 73 Respiratory 18 Rate Blood Pressure 121/61 126/50 Blood Pressure 117/61 [Left] O2 Sat by Pulse 95 95 97 Oximetry 06/11/21 06/11/21 06/11/21 17:15 17:31 17:45 Temperature Pulse Rate Respiratory Rate Blood Pressure 125/60 138/62 137/55 Blood Pressure [Left] O2 Sat by Pulse 95 98 99 Oximetry 06/11/21 06/11/21 06/11/21 18:01 18:15 18:43 Temperature Pulse Rate Respiratory Rate Blood Pressure 132/44 124/58 108/87 Blood Pressure [Left] O2 Sat by Pulse 96 95 97 Oximetry 06/11/21 06/12/21 06/12/21 18:49 08:41 09:16 Temperature Pulse Rate 67 Respiratory 16 Rate Blood Pressure 136/50 Blood Pressure 137/56 [Left] O2 Sat by Pulse 98 96 90 Oximetry 06/12/21 06/12/21 06/12/21 12:53 13:00 16:31 Temperature Pulse Rate Respiratory Rate Blood Pressure 136/50 136/50 151/59 Blood Pressure [Left] O2 Sat by Pulse 96 96 90 Oximetry 06/12/21 06/12/21 06/12/21 16:52 19:00 20:00 Temperature 98 F Pulse Rate 88 78 Respiratory 17 18 Rate Blood Pressure Blood Pressure 151/59 142/84 [Left] O2 Sat by Pulse 98 100 100 Oximetry 06/13/21 06/13/21 06/13/21 09:12 19:00 23:41 Temperature 98.6 F Pulse Rate 78 78 Respiratory 18 18 Rate Blood Pressure Blood Pressure 139/59 138/88 [Left] O2 Sat by Pulse 95 99 87 Oximetry 06/13/21 06/14/21 06/14/21 23:46 00:00 00:16 Temperature Pulse Rate Respiratory Rate Blood Pressure Blood Pressure [Left] O2 Sat by Pulse 92 85 86 Oximetry 06/14/21 06/14/21 06/14/21 00:30 00:46 01:00 Temperature Pulse Rate Respiratory Rate Blood Pressure Blood Pressure [Left] O2 Sat by Pulse 86 85 87 Oximetry 06/14/21 06/14/21 06/14/21 01:16 01:30 01:46 Temperature Pulse Rate Respiratory Rate Blood Pressure Blood Pressure [Left] O2 Sat by Pulse 91 90 95 Oximetry 06/14/21 06/14/21 06/14/21 02:00 02:16 02:30 Temperature Pulse Rate Respiratory Rate Blood Pressure Blood Pressure [Left] O2 Sat by Pulse 95 95 95 Oximetry 06/14/21 06/14/21 06/14/21 02:46 03:00 03:16 Temperature Pulse Rate Respiratory Rate Blood Pressure Blood Pressure [Left] O2 Sat by Pulse 94 95 95 Oximetry 06/14/21 06/14/21 06/14/21 03:30 03:46 04:00 Temperature Pulse Rate Respiratory Rate Blood Pressure Blood Pressure [Left] O2 Sat by Pulse 91 91 91 Oximetry 06/14/21 06/14/21 06/14/21 04:16 04:30 04:46 Temperature Pulse Rate Respiratory Rate Blood Pressure Blood Pressure [Left] O2 Sat by Pulse 88 95 96 Oximetry 06/14/21 06/14/21 06/14/21 05:00 05:16 05:30 Temperature Pulse Rate Respiratory Rate Blood Pressure Blood Pressure [Left] O2 Sat by Pulse 96 89 87 Oximetry 06/14/21 06/14/21 06/14/21 05:46 06:00 06:16 Temperature Pulse Rate Respiratory Rate Blood Pressure Blood Pressure [Left] O2 Sat by Pulse 91 90 87 Oximetry 06/14/21 06/14/21 06/14/21 06:30 06:46 07:00 Temperature Pulse Rate Respiratory Rate Blood Pressure Blood Pressure [Left] O2 Sat by Pulse 78 L 93 93 Oximetry 06/14/21 06/14/21 06/14/21 07:16 07:30 07:46 Temperature Pulse Rate Respiratory Rate Blood Pressure Blood Pressure [Left] O2 Sat by Pulse 95 97 94 Oximetry 06/14/21 06/14/21 06/14/21 08:00 08:16 08:30 Temperature Pulse Rate Respiratory Rate Blood Pressure Blood Pressure [Left] O2 Sat by Pulse 94 96 95 Oximetry 06/14/21 06/14/21 06/14/21 08:46 09:01 09:16 Temperature Pulse Rate Respiratory Rate Blood Pressure Blood Pressure [Left] O2 Sat by Pulse 90 97 100 Oximetry 06/14/21 06/14/21 06/14/21 09:30 09:48 10:00 Temperature Pulse Rate Respiratory Rate Blood Pressure Blood Pressure [Left] O2 Sat by Pulse 87 91 98 Oximetry 06/14/21 06/14/21 06/14/21 10:16 10:30 10:46 Temperature Pulse Rate Respiratory Rate Blood Pressure Blood Pressure [Left] O2 Sat by Pulse 94 83 L 96 Oximetry 06/14/21 06/14/21 06/14/21 11:00 11:16 11:30 Temperature Pulse Rate Respiratory Rate Blood Pressure Blood Pressure [Left] O2 Sat by Pulse 81 L 95 85 Oximetry 06/14/21 06/14/21 06/14/21 11:46 12:00 12:16 Temperature Pulse Rate Respiratory Rate Blood Pressure Blood Pressure [Left] O2 Sat by Pulse 95 84 96 Oximetry 06/14/21 06/14/21 06/14/21 12:30 12:48 13:00 Temperature Pulse Rate Respiratory Rate Blood Pressure Blood Pressure [Left] O2 Sat by Pulse 91 91 96 Oximetry 06/14/21 06/14/21 06/14/21 13:16 13:30 13:46 Temperature Pulse Rate Respiratory Rate Blood Pressure Blood Pressure [Left] O2 Sat by Pulse 97 97 97 Oximetry 06/14/21 06/14/21 06/14/21 14:00 14:16 14:30 Temperature Pulse Rate Respiratory Rate Blood Pressure Blood Pressure [Left] O2 Sat by Pulse 100 97 97 Oximetry 06/14/21 06/14/21 06/14/21 14:46 15:00 15:16 Temperature Pulse Rate Respiratory Rate Blood Pressure Blood Pressure [Left] O2 Sat by Pulse 100 97 94 Oximetry 06/14/21 06/14/21 06/14/21 15:30 15:46 16:00 Temperature Pulse Rate Respiratory Rate Blood Pressure Blood Pressure [Left] O2 Sat by Pulse 96 95 98 Oximetry 06/14/21 06/14/21 06/14/21 16:16 16:30 16:46 Temperature Pulse Rate Respiratory Rate Blood Pressure Blood Pressure [Left] O2 Sat by Pulse 91 76 L 91 Oximetry 06/14/21 06/14/21 06/14/21 17:00 17:13 17:15 Temperature 98.0 F Pulse Rate 83 Respiratory 19 18 Rate Blood Pressure Blood Pressure 130/80 [Left] O2 Sat by Pulse 97 94 94 Oximetry 06/14/21 06/14/21 06/14/21 18:37 20:01 20:03 Temperature 98.0 F 98.7 F Pulse Rate 86 73 Respiratory 18 12 Rate Blood Pressure Blood Pressure 130/84 122/66 [Left] O2 Sat by Pulse 99 97 97 Oximetry 06/15/21 06/15/21 06:22 08:16 Temperature Pulse Rate 89 88 Respiratory 15 16 Rate Blood Pressure Blood Pressure 127/52 166/82 [Left] O2 Sat by Pulse 94 94 Oximetry Lab Results 06/11/21 06/11/21 06/11/21 Range/Units 17:56 18:01 18:01 WBC 6.4 (4.5-11.0) K/mm3 RBC 4.19 (3.65-5.03) M/mm3 Hgb 12.9 (10.1-14.3) gm/dl Hct 37.2 (30.3-42.9) % MCV 89 (79-97) fl MCH 31 (28-32) pg MCHC 35 H (30-34) % RDW 13.6 (13.2-15.2) % Plt Count 131 L (140-440) K/mm3 Lymph % (Auto) 35.0 (13.4-35.0) % [place] % (Auto) 9.2 H (0.0-7.3) % Eos % (Auto) 4.8 H (0.0-4.3) % Baso % (Auto) 0.9 (0.0-1.8) % Lymph # (Auto) 2.2 (1.2-5.4) K/mm3 [place] # (Auto) 0.6 (0.0-0.8) K/mm3 Eos # (Auto) 0.3 (0.0-0.4) K/mm3 Baso # (Auto) 0.1 (0.0-0.1) K/mm3 Seg Neutrophils % 50.1 (40.0-70.0) % Seg Neutrophils # 3.2 (1.8-7.7) K/mm3 Sodium 140 (137-145) mmol/L Potassium 4.5 (3.6-5.0) mmol/L Chloride 101.8 (98-107) mmol/L Carbon Dioxide 30 (22-30) mmol/L Anion Gap 13 mmol/L BUN 17 (7-17) mg/dL Creatinine 0.9 (0.6-1.2) mg/dL Estimated GFR > 60 ml/min BUN/Creatinine Ratio 19 % Glucose 201 H (65-100) mg/dL POC Glucose (70-105) mg/dL Calcium 9.7 (8.4-10.2) mg/dL Urine Color (Yellow) Urine Turbidity (Clear) Urine pH (5.0-7.0) Ur Specific [place] (1.003-1.030) Urine Protein (Negative) mg/dL Urine Glucose (UA) (Negative) mg/dL Urine Ketones (Negative) mg/dL Urine Blood (Negative) Urine Nitrite (Negative) Urine Bilirubin (Negative) Urine Urobilinogen (<2.0) mg/dL Ur Leukocyte Esterase (Negative) Urine WBC (Auto) (0.0-6.0) /HPF Urine RBC (Auto) (0.0-6.0) /HPF U Epithel Cells (Auto) (0-13.0) /HPF Urine Mucus /HPF Salicylates < 0.3 L (2.8-20.0) mg/dL Urine Opiates Screen Urine Methadone Screen Acetaminophen (10.0-30.0) ug/mL Ur Barbiturates Screen Ur Phencyclidine Scrn Ur Amphetamines Screen U Benzodiazepines Scrn Urine Cocaine Screen U Marijuana (THC) Screen Drugs of Abuse Note Plasma/Serum Alcohol (0-0.07) % SARS-CoV-2 (PCR) (Negative) 06/11/21 06/11/21 06/12/21 Range/Units 18:01 18:01 08:14 WBC (4.5-11.0) K/mm3 RBC (3.65-5.03) M/mm3 Hgb (10.1-14.3) gm/dl Hct (30.3-42.9) % MCV (79-97) fl MCH (28-32) pg MCHC (30-34) % RDW (13.2-15.2) % Plt Count (140-440) K/mm3 Lymph % (Auto) (13.4-35.0) % [place] % (Auto) (0.0-7.3) % Eos % (Auto) (0.0-4.3) % Baso % (Auto) (0.0-1.8) % Lymph # (Auto) (1.2-5.4) K/mm3 [place] # (Auto) (0.0-0.8) K/mm3 Eos # (Auto) (0.0-0.4) K/mm3 Baso # (Auto) (0.0-0.1) K/mm3 Seg Neutrophils % (40.0-70.0) % Seg Neutrophils # (1.8-7.7) K/mm3 Sodium (137-145) mmol/L Potassium (3.6-5.0) mmol/L Chloride (98-107) mmol/L Carbon Dioxide (22-30) mmol/L Anion Gap mmol/L BUN (7-17) mg/dL Creatinine (0.6-1.2) mg/dL Estimated GFR ml/min BUN/Creatinine Ratio % Glucose (65-100) mg/dL POC Glucose 146 H (70-105) mg/dL Calcium (8.4-10.2) mg/dL Urine Color (Yellow) Urine Turbidity (Clear) Urine pH (5.0-7.0) Ur Specific [place] (1.003-1.030) Urine Protein (Negative) mg/dL Urine Glucose (UA) (Negative) mg/dL Urine Ketones (Negative) mg/dL Urine Blood (Negative) Urine Nitrite (Negative) Urine Bilirubin (Negative) Urine Urobilinogen (<2.0) mg/dL Ur Leukocyte Esterase (Negative) Urine WBC (Auto) (0.0-6.0) /HPF Urine RBC (Auto) (0.0-6.0) /HPF U Epithel Cells (Auto) (0-13.0) /HPF Urine Mucus /HPF Salicylates (2.8-20.0) mg/dL Urine Opiates Screen Urine Methadone Screen Acetaminophen 5.0 L (10.0-30.0) ug/mL Ur Barbiturates Screen Ur Phencyclidine Scrn Ur Amphetamines Screen U Benzodiazepines Scrn Urine Cocaine Screen U Marijuana (THC) Screen Drugs of Abuse Note Plasma/Serum Alcohol < 0.01 (0-0.07) % SARS-CoV-2 (PCR) (Negative) 06/12/21 06/12/21 06/12/21 Range/Units 11:22 14:26 16:30 WBC (4.5-11.0) K/mm3 RBC (3.65-5.03) M/mm3 Hgb (10.1-14.3) gm/dl Hct (30.3-42.9) % MCV (79-97) fl MCH (28-32) pg MCHC (30-34) % RDW (13.2-15.2) % Plt Count (140-440) K/mm3 Lymph % (Auto) (13.4-35.0) % [place] % (Auto) (0.0-7.3) % Eos % (Auto) (0.0-4.3) % Baso % (Auto) (0.0-1.8) % Lymph # (Auto) (1.2-5.4) K/mm3 [place] # (Auto) (0.0-0.8) K/mm3 Eos # (Auto) (0.0-0.4) K/mm3 Baso # (Auto) (0.0-0.1) K/mm3 Seg Neutrophils % (40.0-70.0) % Seg Neutrophils # (1.8-7.7) K/mm3 Sodium (137-145) mmol/L Potassium (3.6-5.0) mmol/L Chloride (98-107) mmol/L Carbon Dioxide (22-30) mmol/L Anion Gap mmol/L BUN (7-17) mg/dL Creatinine (0.6-1.2) mg/dL Estimated GFR ml/min BUN/Creatinine Ratio % Glucose (65-100) mg/dL POC Glucose 166 H 153 H (70-105) mg/dL Calcium (8.4-10.2) mg/dL Urine Color (Yellow) Urine Turbidity (Clear) Urine pH (5.0-7.0) Ur Specific [place] (1.003-1.030) Urine Protein (Negative) mg/dL Urine Glucose (UA) (Negative) mg/dL Urine Ketones (Negative) mg/dL Urine Blood (Negative) Urine Nitrite (Negative) Urine Bilirubin (Negative) Urine Urobilinogen (<2.0) mg/dL Ur Leukocyte Esterase (Negative) Urine WBC (Auto) (0.0-6.0) /HPF Urine RBC (Auto) (0.0-6.0) /HPF U Epithel Cells (Auto) (0-13.0) /HPF Urine Mucus /HPF Salicylates (2.8-20.0) mg/dL Urine Opiates Screen Urine Methadone Screen Acetaminophen (10.0-30.0) ug/mL Ur Barbiturates Screen Ur Phencyclidine Scrn Ur Amphetamines Screen U Benzodiazepines Scrn Urine Cocaine Screen U Marijuana (THC) Screen Drugs of Abuse Note Plasma/Serum Alcohol (0-0.07) % SARS-CoV-2 (PCR) Negative (Negative) 06/12/21 06/12/21 06/13/21 Range/Units Unknown Unknown 00:45 WBC (4.5-11.0) K/mm3 RBC (3.65-5.03) M/mm3 Hgb (10.1-14.3) gm/dl Hct (30.3-42.9) % MCV (79-97) fl MCH (28-32) pg MCHC (30-34) % RDW (13.2-15.2) % Plt Count (140-440) K/mm3 Lymph % (Auto) (13.4-35.0) % [place] % (Auto) (0.0-7.3) % Eos % (Auto) (0.0-4.3) % Baso % (Auto) (0.0-1.8) % Lymph # (Auto) (1.2-5.4) K/mm3 [place] # (Auto) (0.0-0.8) K/mm3 Eos # (Auto) (0.0-0.4) K/mm3 Baso # (Auto) (0.0-0.1) K/mm3 Seg Neutrophils % (40.0-70.0) % Seg Neutrophils # (1.8-7.7) K/mm3 Sodium (137-145) mmol/L Potassium (3.6-5.0) mmol/L Chloride (98-107) mmol/L Carbon Dioxide (22-30) mmol/L Anion Gap mmol/L BUN (7-17) mg/dL Creatinine (0.6-1.2) mg/dL Estimated GFR ml/min BUN/Creatinine Ratio % Glucose (65-100) mg/dL POC Glucose 121 H (70-105) mg/dL Calcium (8.4-10.2) mg/dL Urine Color Straw (Yellow) Urine Turbidity Clear (Clear) Urine pH 8.0 H (5.0-7.0) Ur Specific [place] 1.006 (1.003-1.030) Urine Protein <15 mg/dl (Negative) mg/dL Urine Glucose (UA) Neg (Negative) mg/dL Urine Ketones Neg (Negative) mg/dL Urine Blood Sm (Negative) Urine Nitrite Neg (Negative) Urine Bilirubin Neg (Negative) Urine Urobilinogen < 2.0 (<2.0) mg/dL Ur Leukocyte Esterase Tr (Negative) Urine WBC (Auto) 10.0 H (0.0-6.0) /HPF Urine RBC (Auto) 9.0 (0.0-6.0) /HPF U Epithel Cells (Auto) 6.0 (0-13.0) /HPF Urine Mucus Few /HPF Salicylates (2.8-20.0) mg/dL Urine Opiates Screen Presumptive negative Urine Methadone Screen Presumptive negative Acetaminophen (10.0-30.0) ug/mL Ur Barbiturates Screen Presumptive negative Ur Phencyclidine Scrn Presumptive negative Ur Amphetamines Screen Presumptive negative U Benzodiazepines Scrn Presumptive positive Urine Cocaine Screen Presumptive negative U Marijuana (THC) Screen Presumptive negative Drugs of Abuse Note Disclamer Plasma/Serum Alcohol (0-0.07) % SARS-CoV-2 (PCR) (Negative) 06/13/21 06/13/21 06/13/21 Range/Units 08:16 11:45 16:25 WBC (4.5-11.0) K/mm3 RBC (3.65-5.03) M/mm3 Hgb (10.1-14.3) gm/dl Hct (30.3-42.9) % MCV (79-97) fl MCH (28-32) pg MCHC (30-34) % RDW (13.2-15.2) % Plt Count (140-440) K/mm3 Lymph % (Auto) (13.4-35.0) % [place] % (Auto) (0.0-7.3) % Eos % (Auto) (0.0-4.3) % Baso % (Auto) (0.0-1.8) % Lymph # (Auto) (1.2-5.4) K/mm3 [place] # (Auto) (0.0-0.8) K/mm3 Eos # (Auto) (0.0-0.4) K/mm3 Baso # (Auto) (0.0-0.1) K/mm3 Seg Neutrophils % (40.0-70.0) % Seg Neutrophils # (1.8-7.7) K/mm3 Sodium (137-145) mmol/L Potassium (3.6-5.0) mmol/L Chloride (98-107) mmol/L Carbon Dioxide (22-30) mmol/L Anion Gap mmol/L BUN (7-17) mg/dL Creatinine (0.6-1.2) mg/dL Estimated GFR ml/min BUN/Creatinine Ratio % Glucose (65-100) mg/dL POC Glucose 121 H 149 H 133 H (70-105) mg/dL Calcium (8.4-10.2) mg/dL Urine Color (Yellow) Urine Turbidity (Clear) Urine pH (5.0-7.0) Ur Specific [place] (1.003-1.030) Urine Protein (Negative) mg/dL Urine Glucose (UA) (Negative) mg/dL Urine Ketones (Negative) mg/dL Urine Blood (Negative) Urine Nitrite (Negative) Urine Bilirubin (Negative) Urine Urobilinogen (<2.0) mg/dL Ur Leukocyte Esterase (Negative) Urine WBC (Auto) (0.0-6.0) /HPF Urine RBC (Auto) (0.0-6.0) /HPF U Epithel Cells (Auto) (0-13.0) /HPF Urine Mucus /HPF Salicylates (2.8-20.0) mg/dL Urine Opiates Screen Urine Methadone Screen Acetaminophen (10.0-30.0) ug/mL Ur Barbiturates Screen Ur Phencyclidine Scrn Ur Amphetamines Screen U Benzodiazepines Scrn Urine Cocaine Screen U Marijuana (THC) Screen Drugs of Abuse Note Plasma/Serum Alcohol (0-0.07) % SARS-CoV-2 (PCR) (Negative) 06/13/21 06/14/21 06/14/21 Range/Units 20:40 08:26 13:59 WBC (4.5-11.0) K/mm3 RBC (3.65-5.03) M/mm3 Hgb (10.1-14.3) gm/dl Hct (30.3-42.9) % MCV (79-97) fl MCH (28-32) pg MCHC (30-34) % RDW (13.2-15.2) % Plt Count (140-440) K/mm3 Lymph % (Auto) (13.4-35.0) % [place] % (Auto) (0.0-7.3) % Eos % (Auto) (0.0-4.3) % Baso % (Auto) (0.0-1.8) % Lymph # (Auto) (1.2-5.4) K/mm3 [place] # (Auto) (0.0-0.8) K/mm3 Eos # (Auto) (0.0-0.4) K/mm3 Baso # (Auto) (0.0-0.1) K/mm3 Seg Neutrophils % (40.0-70.0) % Seg Neutrophils # (1.8-7.7) K/mm3 Sodium (137-145) mmol/L Potassium (3.6-5.0) mmol/L Chloride (98-107) mmol/L Carbon Dioxide (22-30) mmol/L Anion Gap mmol/L BUN (7-17) mg/dL Creatinine (0.6-1.2) mg/dL Estimated GFR ml/min BUN/Creatinine Ratio % Glucose (65-100) mg/dL POC Glucose 158 H 134 H 167 H (70-105) mg/dL Calcium (8.4-10.2) mg/dL Urine Color (Yellow) Urine Turbidity (Clear) Urine pH (5.0-7.0) Ur Specific [place] (1.003-1.030) Urine Protein (Negative) mg/dL Urine Glucose (UA) (Negative) mg/dL Urine Ketones (Negative) mg/dL Urine Blood (Negative) Urine Nitrite (Negative) Urine Bilirubin (Negative) Urine Urobilinogen (<2.0) mg/dL Ur Leukocyte Esterase (Negative) Urine WBC (Auto) (0.0-6.0) /HPF Urine RBC (Auto) (0.0-6.0) /HPF U Epithel Cells (Auto) (0-13.0) /HPF Urine Mucus /HPF Salicylates (2.8-20.0) mg/dL Urine Opiates Screen Urine Methadone Screen Acetaminophen (10.0-30.0) ug/mL Ur Barbiturates Screen Ur Phencyclidine Scrn Ur Amphetamines Screen U Benzodiazepines Scrn Urine Cocaine Screen U Marijuana (THC) Screen Drugs of Abuse Note Plasma/Serum Alcohol (0-0.07) % SARS-CoV-2 (PCR) (Negative) 06/14/21 06/14/21 06/15/21 Range/Units 16:44 22:05 08:01 WBC (4.5-11.0) K/mm3 RBC (3.65-5.03) M/mm3 Hgb (10.1-14.3) gm/dl Hct (30.3-42.9) % MCV (79-97) fl MCH (28-32) pg MCHC (30-34) % RDW (13.2-15.2) % Plt Count (140-440) K/mm3 Lymph % (Auto) (13.4-35.0) % [place] % (Auto) (0.0-7.3) % Eos % (Auto) (0.0-4.3) % Baso % (Auto) (0.0-1.8) % Lymph # (Auto) (1.2-5.4) K/mm3 [place] # (Auto) (0.0-0.8) K/mm3 Eos # (Auto) (0.0-0.4) K/mm3 Baso # (Auto) (0.0-0.1) K/mm3 Seg Neutrophils % (40.0-70.0) % Seg Neutrophils # (1.8-7.7) K/mm3 Sodium (137-145) mmol/L Potassium (3.6-5.0) mmol/L Chloride (98-107) mmol/L Carbon Dioxide (22-30) mmol/L Anion Gap mmol/L BUN (7-17) mg/dL Creatinine (0.6-1.2) mg/dL Estimated GFR ml/min BUN/Creatinine Ratio % Glucose (65-100) mg/dL POC Glucose 135 H 166 H 153 H (70-105) mg/dL Calcium (8.4-10.2) mg/dL Urine Color (Yellow) Urine Turbidity (Clear) Urine pH (5.0-7.0) Ur Specific [place] (1.003-1.030) Urine Protein (Negative) mg/dL Urine Glucose (UA) (Negative) mg/dL Urine Ketones (Negative) mg/dL Urine Blood (Negative) Urine Nitrite (Negative) Urine Bilirubin (Negative) Urine Urobilinogen (<2.0) mg/dL Ur Leukocyte Esterase (Negative) Urine WBC (Auto) (0.0-6.0) /HPF Urine RBC (Auto) (0.0-6.0) /HPF U Epithel Cells (Auto) (0-13.0) /HPF Urine Mucus /HPF Salicylates (2.8-20.0) mg/dL Urine Opiates Screen Urine Methadone Screen Acetaminophen (10.0-30.0) ug/mL Ur Barbiturates Screen Ur Phencyclidine Scrn Ur Amphetamines Screen U Benzodiazepines Scrn Urine Cocaine Screen U Marijuana (THC) Screen Drugs of Abuse Note Plasma/Serum Alcohol (0-0.07) % SARS-CoV-2 (PCR) (Negative) .
[2021-06-15] MEDS: DONEPEZIL 10 MG TAB PO SCH (11:32)
[2021-06-15 19:51] VITALS: BP 135/68
== END 2021-06-15 19:51 ==
LOC: ED 15:21
DX: R45.851 Suicidal ideations (principal); F01.50 Vascular dementia, unspecified severity, without behavioral disturbance, psychotic disturbance, mood disturbance, and anxiety; Z88.1 Allergy status to other antibiotic agents; I10 Essential (primary) hypertension; E11.9 Type 2 diabetes mellitus without complications; Z20.822 Contact with and (suspected) exposure to COVID-19
CPT/HCPCS: 36415; 80048; 80307; 81001; 82962; 85025; 87086; 96372; 99284; U0003; 80320; 99285; Q9967; G0480; J1815